=== PATIENT | male | born 1960 | race Caucasian/White ===

== ENCOUNTER 2016-12-22 10:17 | Outpatient (CLI) | payer MEDICARE ==
[~2016-12-22] VITALS: Ht 177.8 cm; Wt 98.6 kg
--- NOTE | ~2016-12-22 | HEMODYNAMI ---
PATIENT:IKER LOWE MEDICAL RECORD: [id number] : 64 LOCATION:[facility] ADMISSION DATE: 12/22/16 Generatedon:12/22/201614:07 Patient name: IKER LOWE Patient #: [id number] SSN: [id number] B: 1960 Date of study: 12/22/2016 Page: Of Hemodynamic Procedure Report Patient Data Patient Demographics Procedure consent was obtained First Name: IKER Gender: Male Last Name: MYNOR : 1960 Middle Initial: VALERIA Age: 56 year(s) Patient #: [id number] Race: Unknown Additional ID: [id number] Contact details [address]: [address] [place] [address] State: [place] City: [place] Zip code: [address] Past Medical History Allergies Allergen Reaction Date Comments Reported Other allergy 12/22/2016 Iodine, Sulfa Admission Admission Data Admission Date: 12/22/2016 Admission Time: 10:17 Admit Source: Other Lab Results Lab Result Date: 12/22/2016 Lab Result Time: 10:40 Biochemistry Name Units Result Min Max BUN mg/dl 18 --(---*)-- 7 18 Creatinine mg/dl 1.1 --(--*-)-- 0.6 1.3 CBC Name Units Result Min Max Hematocrit % 45.2 --(-*--)-- 42 54 Hemoglobin g/dl 15.2 --(-*--)-- 13.5 17.5 Procedure Procedure Types Cath Procedure Diagnostic Procedure LHC LHC w/Coronaries w/Grafts PCI Procedure Coronary Stent Coronary Stent Initial Miscellaneous Procedures Moderate Sedation up to 30 minutes Procedure Description Procedure Date Procedure Date: 12/22/2016 Procedure Start Time: 13:28 Procedure End Time: 14:06 Procedure Staff Name Function Kristian Goodrich MD Performing Physician Felice Chavez RT Monitor Natividad Tobias RT Scrub Jaden Shelley RN Nurse Lidia Palomares RT Monitor Procedure Data Cath Procedure Fluoroscopy Diagnostic fluoroscopy Total fluoroscopy Time: 7.3 time: 7.3 min min Diagnostic fluoroscopy Total fluoroscopy dose: dose: 1321 mGy 1321 mGy Contrast Material Contrast Material Type Amount (ml) Isovue 300 161 Entry Location Entry Primary Successful Side Size Upsize Upsize Entry Closure Succes sful Closure Location (Fr) 1 (Fr) 2 (Fr) Remarks Device Remarks Femoral Right 5 Fr 6 Fr Exoseal artery Short Estimated blood loss: 10 ml Diagnostic catheters Device Type Used For End Catheter Placement Cordis 5Fr JL 4.0 Procedure Catheter (MP) Diagnostic Infinity 5Fr Procedure AR MOD Catheter Diagnostic Infinity 5Fr Procedure IM catheter Cordis 5Fr Pigtail Procedure Catheter (MP) Procedure Complications No complications Procedure Medications Medication Administration Route Dosage Oxygen NC 2 l/min Heparin Flush Bag added to field 2 bags (1000units/500ml NS) 0.9% NaCl I.V. 100 ml/hr Fentanyl I.V. 50 mcg Versed I.V. 1 mg Fentanyl I.V. 50 mcg Versed I.V. 1 mg Heparin Bolus I.V. 05326 units Fentanyl I.V. 50 mcg Fentanyl I.V. 50 mcg Plavix P.O. 600 mg Hemodynamics Rest HGB: 15.2 (g/dl) Heart Rate: 74 (bpm) Pressure Samples Time Site Value (mmHg) Purpose Heart Use Rate(bpm) 13:38 LV 143/1,20 Snapshot 84 13:38 AO 134/86(109) Pullback 83 13:38 LV 153/4,20 Pullback 83 Gradients Valve Time Site 1 Site 2 Mean SEP/DFP Peak To Heart Use (mmHg) (sec/min) Peak Rate (mmHg) (bpm) Aortic 13:38 LV AO 14 22 19 83 153/4,20 134/86(109) Calculations Valve P-P Mean Valve Index Valve Source Name Gradient Area Flow (cm2) Aortic 19 14 19 14 Snapshots Pre Cath Intra NCS Post Cath Vital Signs Time Heart Resp SPO2 etCO2 NIBP (mmHg) Rhythm Pain Sedation Rate (ipm) (%) (mmHg) Status Level (bpm) 13:12:51 73 16 97 37.5 149/100(123) NSR 0 (11) 10(A) , No pain 13:17:29 73 18 97 36.9 143/97(119) NSR 0 (11) 10(A) , No pain 13:22:09 76 18 98 9.7 145/88(121) NSR 0 (11) 10(A) , No pain 13:26:46 78 17 97 38.4 138/96(113) NSR 0 (11) 10(A) , No pain 13:31:24 79 17 96 33.9 145/97(112) NSR 0 (11) 10(A) , No pain 13:36:01 85 17 97 38.4 144/98(116) NSR 0 (11) 9(A) , No pain 13:40:41 83 18 97 39.9 141/95(117) NSR 0 (11) 9(A) , No pain 13:45:20 80 18 98 39.1 143/96(118) NSR 0 (11) 9(A) , No pain 13:50:00 84 17 98 36.1 149/96(117) NSR 0 (11) 9(A) , No pain 13:54:41 81 17 98 42.9 144/97(117) NSR 0 (11) 9(A) , No pain 13:59:20 80 18 97 39.1 149/102(124) NSR 0 (11) 9(A) , No pain 14:03:56 81 17 97 44.4 136/98(113) NSR 0 (11) 10(A) , No pain Medications Time Medication Route Dose Verified Delivered Reason Notes Effectiveness by by 13:14:05 Oxygen NC 2 Kristian Jaden Per physician l/min Kp Shelley RN 13:14:14 Heparin Flush added 2 Kristian Jaden used for Bag to bags Kp Shelley o and m supervisor (1000units/500ml field NS) 13:14:23 0.9% NaCl I.V. 100 Kristian Jaden Per physician ml/hr Kp Shelley RN 13:27:41 Fentanyl I.V. 50 Kristian Jaden for sedation mcg Kp Shelley RN 13:27:48 Versed I.V. 1 mg Kristian Jaden for sedation Kp Shelley RN 13:32:57 Fentanyl I.V. 50 Kristian Jaden for sedation mcg Kp Shelley RN 13:33:02 Versed I.V. 1 mg Kristian Jaden for sedation Kp Shelley RN 13:43:49 Heparin [place].V. 62723 Kristian Jaden for units Kp Shelley RN anticoagulation 13:51:25 Fentanyl I.V. 50 Kristian Stanley for sedation mcg Kp Shelley RN 13:54:52 Fentanyl I.V. 50 Kristian Stanley for sedation mcg Kp Shelley RN 14:06:25 Plavix P.O. 600 Kristian Stanley for mg Kp Shelley RN antiplatelet therapy Procedure Log Time Note 12:55:02 Admit Source: Other 12:55:29 Felice Chavez RT(R) sent for patient. Start room use. 12:55:31 Diagnostic Cath status Elective 12:55:49 Time tracking: Regular hours 12:55:53 Plan of Care:Hemodynamics will remain stable., Cardiac rhythm will remain stable., Comfort level will be maintained., Respiratory function will remain adequate., Patient/ family verbilizes understanding of procedure., Procedure tolerated without complication., Recovers from procedure without complications.. 12:56:07 H&P Date Dictated: 12/18/2016 Within 30 days and on chart., H&P Addendum completed by physician on day of procedure. (MUST COMPLETE FOR ALL OUTPATIENTS). 13:07:43 Patient received from Pre/Post Procedure Room to CCL 1 Alert and oriented. Tansferred to table in Supine position. 13:07:45 Warm blankets applied, and analy hugger turned on for patient comfort. 13:07:45 Correct patient and procedure confirmed by team. 13:07:47 Signed procedure consent form obtained from patient. 13:07:48 ECG and BP/O2 sat monitors applied to patient. 13:07:49 Full Disclosure recording started 13:12:01 Vital chart was started 13:14:05 Oxygen 2 l/min NC was administered by Jaden Shelley RN; Per physician; 13:14:14 Heparin Flush Bag (1000units/500ml NS) 2 bags added to field was administered by Jaden Shelley RN; used for procedure; 13:14:23 0.9% NaCl 100 ml/hr I.V. was administered by Jaden Shelley RN; Per physician; 13:19:07 Baseline sample Acquired. 13:19:12 Rhythm: sinus rhythm 13:19:14 Pre-procedure instructions explained to patient. 13:19:14 Pre-op teaching completed and patient verbalized understanding. 13:19:16 Family in waiting room. 13:19:17 Patient NPO since Midnight. 13:19:31 Patient allergic to Other allergyIodine, Sulfa 13:19:33 Is the patient allergic to Iodine/contrast media? Yes. 13:19:34 Was the patient premedicated? Yes 13:19:36 Is patient on blood thinner?Yes 13:19:44 ACC The patient was administered the following blood thiners within the last 24 hours: Coumadin 13:19:47 Patient diabetic? No. 13:19:49 Previous problem with sedation/anesthesia? No ? 13:19:51 Snore? Yes 13:19:52 Sleep apnea? Yes 13:19:55 Deviated septum? No 13:20:08 Opens mouth fully? Yes 13:20:10 Sticks out tongue? Yes 13:20:22 Airway obstruction? Yes COPD 13:20:29 Dentures? No ? 13:20:43 Pre procedure: right dorsailis pedis pulse 2+ Normal; easily identifiable; not easily obliterated 13:20:51 Patient pain scale 0/10 ?. 13:20:57 IV patent on arrival in left hand with 0.9% NaCl at [facility]. 13:23:02 Lab Result : Creatinine 1.1 mg/dl 13:23:02 Lab Result : BUN 18 mg/dl 13:23:02 Lab Result : Hemoglobin 15.2 g/dl 13:23:02 Lab Result : Hematocrit 45.2 % 13:23:29 Lab results completed and on chart. 13:23:37 Right groin area was prepped with chlora-prep and draped in sterile fashion 13:23:38 Alarms reviewed by R. N. 13:23:39 Sharps counted by scrub and verified by R.N. 13:23:54 Use device set Femoral Dx 13:23:55 Tegaderm 4 x 4 opened to sterile field. 13:23:56 Acist Manifold opened to sterile field. 13:23:57 Acist Hand Control opened to sterile field. 13:23:58 Acist Syringe opened to sterile field. 13:23:59 Bag Decanter opened to sterile field. 13:23:59 Medline Cath Pack opened to sterile field. 13:24:00 Terumo 5Fr [place] Sheath opened to sterile field. 13:24:01 Diagnostic Infinity 5Fr Multipack catheter opened to sterile field. 13:24:02 St Catracho 260cm J .035 wire opened to sterile field. 13:24:11 Physician arrived 13:: --------ALL STOP TIME OUT------ 13:24:14 Final Timeout: patient, procedure, and site verified with staff and physician. All members of the team are in agreement. 13:24:15 Right groin site verified by team. 13:24:19 Physical assessment completed. ASA score P 2 - A patient with mild systemic disease as per Kristian Goodrich MD. 13::27 Sedation plan: IV Moderate Sedation Medication:Versed, Fentanyl 13:25:36 Zero performed for pressure channel P1 13::41 Fentanyl 50 mcg I.V. was administered by Jaden Shelley RN; for sedation; 13:27:48 Versed 1 mg I.V. was administered by Jaden Shelley RN; for sedation; 13:28:05 Procedure started. 13:28:07 Local anesthetic to right femoral artery with Lidocaine 2% by Kristian Goodrich MD.INITIAL ACCESS ONLY 13:29:18 A 5 Fr sheath was inserted into the Right Femoral artery 13:29:28 A Cordis 5Fr JL 4.0 Catheter (MP) was advanced over the wire and used for Procedure. 13:30:31 LCA angiography performed. 13:31:53 Catheter exchanged over wire. 13:32:12 A Diagnostic Infinity 5Fr AR MOD Catheter was advanced over the wire and used for Procedure. 13:32:57 Fentanyl 50 mcg I.V. was administered by Jaden Shelley RN; for sedation; 13:33:02 Versed 1 mg I.V. was administered by Jaden Shelley RN; for sedation; 13:33:43 RCA angiography performed. 13:34:22 SVG to Diag angiography performed. 13:35:03 A Diagnostic Infinity 5Fr IM catheter was advanced over the wire and used for Procedure. 13:36:44 Catheter removed. 13:37:08 A Cordis 5Fr Pigtail Catheter (MP) was advanced over the wire and used for Procedure. 13:38:20 LV hemodynamics recorded. 13:38:23 Injector settings: Ml/sec: 10, Volume: 20, 13:38:25 LV gram done using HENDERSON 13:38:59 EF : 55 % 13:39:06 Catheter removed. 13:39:18 Terumo 6Fr [place] Sheath opened to sterile field. 13:39:24 SolvAxis BasixCompak Inflation Kit opened to sterile field. 13:39:45 Jack BMW [place] 2 J-tip 300cm 0.014 guide wir opened to sterile field. 13:40:10 Cordis 6FR XBLAD 3.5 guide catheter opened to sterile field. 13:40:27 Sheath upsized to a 6 Fr Short. 13:41:09 High Pressure Extension Tubing (Goodrich) opened to sterile field. 13:41:14 Cook 18G 7cm Percutaneous Entry needle opened to sterile field. 13:41:33 BMW wire advanced. 13:43:49 Heparin Bolus 14631 units I.V. was administered by Jaden Shelley RN; for anticoagulation; 13:45:02 Wire advanced across lesion. 13:47:04 Inflation number: 1 A Euphora 2.5 x 20 Balloon was prepped and advanced across the Mid LAD, then inflated to 12 WILLIAMS for 0:10 (min:sec). 13:47:39 Inflation number: 2 The Euphora 2.5 x 20 Balloon was reinflated across the Mid LAD, to 14 WILLIAMS for 0:10 (min:sec). 13:47:56 Inflation number: 3 The Euphora 2.5 x 20 Balloon was reinflated across the Mid LAD, to 14 WILLIAMS for 0:10 (min:sec). 13:50:05 Balloon removed over the wire. 13:51:25 Fentanyl 50 mcg I.V. was administered by Jaden Shelley RN; for sedation; 13:53:18 Inflation Number: 4 A Medtronic Integrity 2.75 X 18 stent was prepped and advanced across the Mid LAD. The stent was deployed at 16 WILLIAMS for 0:10 (min:sec). 13:54:29 Stent catheter was removed intact over wire. 13:54:52 Fentanyl 50 mcg I.V. was administered by Jdaen Shelley RN; for sedation; 13:56:43 Inflation Number: 1 A Medtronic Integrity 3.0 X 26 stent was prepped and advanced across the Prox LAD. The stent was deployed at 16 WILLIAMS for 0:10 (min:sec). 13:57:39 Stent catheter was removed intact over wire. 13:57:45 Wire removed. 13:57:52 Guide catheter removed. 13:58:27 Cordis 6Fr Exoseal opened to sterile field. 13:58:45 Sheath removed intact; hemostasis achieved with Exoseal to the Right Femoral artery. 13:58:48 Procedure ended.(Physican Out) 13:59:55 Fluoroscopy time 07.30 minutes. 13:59:59 Fluoroscopy dose: 1321 mGy 13:59:59 Flurop Dose total: 1321 14:00:03 Contrast amount:Isovue 300 161ml. 14:00:05 Sharps counted by scrub and verified by R.N. 14:00:05 Insertion/operative site no bleeding no hematoma. 14:00:08 Post-op/insertion site Right Femoral artery dressed using a 4 x 4 and Tegaderm. 14:00:13 Post right femoral artery:stable, soft, clean and dry 14:00:15 Post Procedure Pulses reassessed and unchanged 14:00:20 Post procedure: right dorsailis pedis pulse 2+ Normal; easily identifiable; not easily obliterated. 14:00:24 Post-procedure physical assessment completed. ASA score P 2 - A patient with mild systemic disease as per Kristian Goodrich MD. 14:00:28 Post procedure rhythm: unchanged. 14:00:31 Estimated blood loss: 10 ml 14:00:32 Post procedure instruction explained to patient.Patient verbalizes understanding. 14:00:33 Patient needs reinforcement of post procedure teaching. 14:01:16 Procedure type changed to Cath procedure, Diagnostic procedure, LHC, LHC w/Coronaries w/Grafts, PCI procedure, Coronary Stent, Coronary Stent Initial, Miscellaneous Procedures, Moderate Sedation up to 30 minutes 14:02:26 Procedure and supply charges have been captured, reviewed, submitted and are correct. 14:02:29 Procedure Complication : No complications 14:06:25 Plavix 600 mg P.O. was administered by Jaden Shelley RN; for antiplatelet therapy; 14:06:33 Vital chart was stopped 14:06:34 See physician's report for complete and final results. 14:06:38 Report given to Pre/Post Procedure Room. 14:06:42 Patient transfered to Pre/Post Procedure Room with Bed. 14:06:44 Procedure ended. 14:06:44 Full Disclosure recording stopped 14:06:47 End room use (Document Last) Intervention Summary Intervention Notes Time ActionType Lesion and Equipment Action# Pressure Duration Attributes Used 13:47:04 Inflate Mid LAD Euphora 1 12 00:10 balloon 2.5 x 20 Balloon 13:47:39 Reinflate Mid LAD Euphora 2 14 00:10 balloon 2.5 x 20 Balloon 13:47:56 Reinflate Mid LAD Euphora 3 14 00:10 balloon 2.5 x 20 Balloon 13:53:18 Place stent Mid LAD Medtronic 4 16 00:10 Integrity 2.75 X 18 stent 13:56:43 Place stent Prox LAD Medtronic 1 16 00:10 Integrity 3.0 X 26 stent Device Usage Item Name Manufacture Quantity Catalog Hospital Part Current Minimal Lot# / Number Charge Number Stock Stock Serial# Code Tegaderm 4 x 3M 1 [id number] 613184 441359 5 4 Acist Acist 1 35149 372671 477078 752764 5 [employer] Ourcast Acist Hand Acist 1 97228 570809 347824 397742 5 [employer] Ourcast Acist Acist 1 25988 449794 108402 206397 20 [employer] Medical Systems Ourcast Bag Decanter Microtek 1 2002S 485436 88991 776025 5 Medical Inc. Medline Cath Cardinal 1 [id number] 659858 52347 658427 5 Pack Health Terumo 5Fr Terumo 1 [id number] 324945 269922 054900 40 [place] Sheath Diagnostic Cardinal 1 [id number] 699404 56935 794594 30 Infinity 5Fr Health Multipack catheter St Catracho St Catracho 1 323597 327366 758521 901784 30 260cm J .035 wire Cordis 5Fr Cardinal 1 [id number] 5 JL 4.0 Health Catheter (MP) Diagnostic Cardinal 1 [id number] 324132 886818 674347 15 Infinity 5Fr Health AR MOD Catheter Diagnostic Cardinal 1 [id number] 451652 375136 533435 5 Infinity 5Fr Health IM catheter Cordis 5Fr Cardinal 1 950170 5 Pigtail Health Catheter (MP) Terumo 6Fr Terumo 1 [id number] 894520 860783 918536 40 [place] Sheath Merit Merit 1 [id number] 352979 827620 760830 15 BasTribunat Medical Inflation Kit Jack BMW Jack 1 [id number] 439124 151722 792512 5 [place] 2 Vascular J-tip 300cm 0.014 guide wir Cordis 6FR Cardinal 1 [id number] 154833 447599 807299 10 XBLAD 3.5 Health guide catheter High Merit 1 [id number] 983409 02549 243093 10 Pressure Medical Extension Tubing (Goodrich) Cook 18G 7cm Cook Medical 1 [id number] 956079 90833 807843 5 Percutaneous Entry needle Euphora 2.5 Medtronic 1 [id number] 093748 803504 725656 5 [id number] x 20 Balloon Medtronic Medtronic 1 [id number] 843266 839041 9 [id number] Integrity 2.75 X 18 stent Medtronic Medtronic 1 [id number] 431145 519070 9 [id number] Integrity 3.0 X 26 stent Cordis 6Fr Cardinal 1 [id number] 514155 567104 218220 10 [email or web address] Signature Audit [place] Stage Time Signature Unsigned Intra-Procedure 12/22/2016 Lidia Palomares 2:07:05 PM RT(R) Signatures Monitor : Felice Chavez RT Signature : Date : Time : Monitor : Lidia Palomares Signature : RT Date : Time : [place] [address] [facility] [address]
[2016-12-22] MEDS ORDERED: COUMADIN5 MG PO (10:34)
[2016-12-22] MEDS ORDERED: TENORMIN50 MG PO (10:35)
[2016-12-22] MEDS ORDERED: NEURONTIN800 MG PO (10:35)
[2016-12-22] MEDS ORDERED: HYDROCODONE-APA1 TAB PO (10:35)
[2016-12-22] MEDS ORDERED: CYMBALTA60 MG PO (10:36)
[2016-12-22] MEDS ORDERED: XANAX0.5 MG PO (10:36)
[2016-12-22] MEDS ORDERED: PREDNISONE10 MG PO (10:37)
[2016-12-22] MEDS ORDERED: PROAIR HFA8.5 GM INH (10:38)
[2016-12-22] MEDS ORDERED: ALBUTEROL2.5 MG/3 M INH (10:38)
[2016-12-22 10:41] VITALS: BP 161/92; Ht 177.8 cm; Wt 98.6 kg
[2016-12-22 10:51] LABS: BASOPHILS 0.5 % (0-2); EOSINOPHILS 2.7 % (0-7); HEMATOCRIT 45.2 % (42.0-54.0); HEMOGLOBIN 15.2 g/dL (13.5-17.5); IMMATURE GRANULOCYTES 0.3 % (0-5); LYMPHOCYTES 15.3 % (15-50); MCHC 33.6 g/dL (31.0-37.0); MCV 89.3 fL (80.0-100.0); MEAN PLATELET VOLUME 9.6 fL (7.4-10.4); MONOCYTES 4.1 % (2-11); NEUTROPHILS 77.1 % (40-80); PLATELET COUNT 205 10x3/uL (130-400); RBC 5.06 10x6/uL (4.20-6.10); RDW 13.6 % (11.5-14.5); WBC 6.4 10x3/uL (4.8-10.8)
[2016-12-22 11:04] LABS: ANION GAP 11.4 mmol/L (8-16); CALCIUM 8.8 mg/dL (8.5-10.1); CARBON DIOXIDE 28.4 mmol/L (21.0-32.0); CREATININE - SERUM 1.1 mg/dL (0.6-1.3); POTASSIUM - SERUM 4.8 mmol/L (3.5-5.1)
[2016-12-22 11:09] LABS: INR 0.97 (0.85-1.17); PROTIME 12.7 SECONDS (11.6-15.0)
--- NOTE | 2016-12-22 14:30 | NUR ---
2L NC, NO RESP DISTRESS. RIGHT GROIN 6F EXOSEAL CDI, NO BLEEDING OR HEMATOMA NOTED. NO C/O PAIN OR NAUSEA. VSS. FRIEND AT BEDSIDE, CALL LIGHT WITHIN REACH.
--- NOTE | 2016-12-22 15:00 | NUR ---
RIGHT GROIN 6F EXOSEAL CDI, NO BLEEDING OR HEMATOMA NOTED. 2L NC, NO RESP DISTRESS. NO C/O PAIN OR NAUSEA. VSS. WILL CONTINUE TO MONITOR CLOSELY.
[2016-12-22] MEDS ORDERED: PLAVIX75 MG PO (15:09)
--- NOTE | 2016-12-22 15:15 | NUR ---
SANDWICH TRAY AND DRINK GIVEN. NO C/O NAUSEA OR PAIN. RIGHT GROIN 6F EXOSEAL CDI, NO BLEEDING OR HEMATOMA NOTED. 2L NC, NO RESP DISTRESS. VSS. CALL LIGHT WITHIN REACH.
--- NOTE | 2016-12-22 16:15 | NUR ---
RESTING QUEITLY WITH EYES CLOSED. RIGHT GROIN 6F EXOSEAL CDI, NO BLEEDING OR HEMATOMA NOTED. NO C/O AT THIS TIME. VSS. WILL CONTINUE TO MONITOR.
--- NOTE | 2016-12-22 17:27 | NUR ---
HOB ELEVATED 30 DEGREES. RIGHT GROIN 6F EXOSEAL CDI, NO BLEEDING OR HEMATOMA NOTED.
--- NOTE | 2016-12-22 17:35 | NUR ---
DISCHARGE INSTRUCTIONS GIVEN, VERBALIZED UNDERSTANDING.
--- NOTE | 2016-12-22 17:48 | NUR ---
LEFT WRIST PIV D/C'D WITH CATHETER INTACT, BAND AID TO SITE. UP TO BEDSIDE TO GET DRESSED.
--- NOTE | 2016-12-22 18:00 | NUR ---
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 LEFT FACILITY WITH FRIEND AND ALL PERSONAL BELONGINGS.
== END 2016-12-22 18:00 | disposition home or self-care (01) ==
LOC: D.CATH 10:17
PROVIDERS: Internal Medicine Cardiovascular Disease
DX: I25.119 Atherosclerotic heart disease of native coronary artery with unspecified angina pectoris (principal); E78.5 Hyperlipidemia, unspecified; I10 Essential (primary) hypertension; Z95.2 Presence of prosthetic heart valve; R55 Syncope and collapse; Z01.812 Encounter for preprocedural laboratory examination

== ENCOUNTER 2017-12-07 10:47 | Outpatient (CLI) | payer MEDICARE ==
[~2017-12-07] VITALS: Ht 177.8 cm; Wt 100.0 kg
--- NOTE | ~2017-12-07 | HEMODYNAMI ---
PATIENT:IKER LOWE MEDICAL RECORD: [id number] : 64 LOCATION:[facility] ADMISSION DATE: 12/07/17 Generatedon:12/07/201713:50 Patient name: IKER LOWE Patient #: [id number] SSN: DO B: 1960 Date of study: 12/07/2017 Page: Of Hemodynamic Procedure Report Patient Data Patient Demographics Procedure consent was obtained First Name: IKER Gender: Male Last Name: MYNOR : 1960 Middle Initial: VALERIA Age: 57 year(s) Patient #: [id number] Race: Unknown Additional ID: [id number] Contact details [address]: [address] [place] [id number] State: [place] City: [place] Zip code: [address] Past Medical History Allergies Allergen Reaction Date Comments Reported Other allergy 12/22/2016 Iodine, Sulfa Admission Admission Data Admission Date: 12/07/2017 Admission Time: 10:47 Lab Results Lab Result Date: 12/07/2017 Lab Result Time: 0:00 Biochemistry Name Units Result Min Max BUN mg/dl 17 --(---*)-- 7 18 Creatinine mg/dl 1.1 --(--*-)-- 0.6 1.3 CBC Name Units Result Min Max Hemoglobin g/dl 15.1 --(-*--)-- 13.5 17.5 Procedure Procedure Types Cath Procedure Diagnostic Procedure C [facility] w/Coronaries w/Grafts Sedation Charges Moderate Sedation up to 15 minutes PCI Procedure Coronary Stent Coronary Stent Initial Procedure Description Procedure Date Procedure Date: 12/07/2017 Procedure Start Time: 13:10 Procedure End Time: 13:44 Procedure Staff Name Function Kristian Goodrich MD Performing Physician Melida Eubanks RT Monitor Grace Nolasco RT Scrub Long Del Rio RN Nurse Procedure Data Cath Procedure Fluoroscopy Diagnostic fluoroscopy Total fluoroscopy Time: 9 time: 9 min min Diagnostic fluoroscopy Total fluoroscopy dose: dose: 1323 mGy 1323 mGy Contrast Material Contrast Material Type Amount (ml) Isovue 300 102 Entry Location Entry Primary Successful Side Size Upsize Upsize Entry Closure Succes sful Closure Location (Fr) 1 (Fr) 2 (Fr) Remarks Device Remarks Femoral Right 5 Fr 6 Fr Exoseal artery Short Estimated blood loss: 5 ml Diagnostic catheters Device Type Used For End Catheter Placement MULTIPACK JL 4.0 5Fr Left Coronary catheter Angiography MULTIPACK 3DRC 5Fr Right Coronary catheter Angiography DIAGNOSTIC AR MOD 5Fr SVG Angiography Catheter ([id number]) Procedure Complications No complications Procedure Medications Medication Administration Route Dosage 0.9% NaCl I.V. 100 ml/hr Oxygen etCO2 Nasal cannula 2 l/min Heparin Flush Bag added to field 2 bags (1000units/500ml NS) Lidocaine 2% added to field 20 Versed I.V. 2 mg Fentanyl I.V. 100 mcg Heparin Bolus I.V. 17738 units Plavix P.O. 600 mg Hemodynamics Rest HGB: 15.1 (g/dl) Heart Rate: 61 (bpm) Snapshots Pre Cath Intra NCS Post Cath Vital Signs Time Heart Resp SPO2 etCO2 NIBP (mmHg) Rhythm Pain Sedation Rate (ipm) (%) (mmHg) Status Level (bpm) 12:55:09 67 13 99 38.9 146/96(110) NSR 0 (11) 10(A) , No pain 12:59:19 65 15 98 40.4 147/93(116) NSR 0 (11) 10(A) , No pain 13:03:33 65 13 98 43.4 135/85(108) NSR 0 (11) 10(A) , No pain 13:07:43 65 14 98 41.2 153/87(111) NSR 0 (11) 10(A) , No pain 13:12:01 69 14 98 41.9 137/82(105) NSR 0 (11) 10(A) , No pain 13:16:08 69 13 98 41.9 146/92(118) NSR 0 (11) 10(A) , No pain 13:20:18 69 13 98 44.1 142/97(112) NSR 0 (11) 10(A) , No pain 13:24:28 68 13 98 43.4 145/92(124) NSR 0 (11) 10(A) , No pain 13:28:38 68 15 98 42.6 143/99(123) NSR 0 (11) 10(A) , No pain 13:32:52 67 14 98 41.9 137/93(114) NSR 0 (11) 9(A) , No pain 13:37:02 67 15 98 41.9 143/90(114) NSR 0 (11) 9(A) , No pain 13:41:12 69 14 98 42.6 137/98(113) NSR 0 (11) 10(A) , No pain Medications Time Medication Route Dose Verified Delivered Reason Note s Effectiveness by by 13:01:13 0.9% NaCl I.V. 100 Long Long Per physician ml/hr Eliane Del Rio RN RN 13:01:22 Oxygen etCO2 2 Long Long Per physician Nasal l/min Eliane Del Rio cannula RN RN 13:01:33 Heparin Flush added 2 bags Long Long used for Bag to Eliane Del Rio procedure (1000units/500ml RN RN NS) 13:01:44 Lidocaine 2% added 20ml Long Long for local to vial Eliane Del Rio anesthetic field RN RN 13:09:42 Versed I.V. 2 mg Long Long for sedation Eliane Del Rio RN RN 13:09:51 Fentanyl I.V. 100 Long Long for sedation mcg Eliane Del Rio RN RN 13:22:48 Heparin Bolus I.V. 10,000 Long Long for units Eliane Del Rio anticoagulation RN RN 13:41:26 Plavix P.O. 600 mg Long Long for Eliane Del Rio antiplatelet RN RN therapy Procedure Log Time Note 12:39:06 Diagnostic Cath Status : Elective 12:39:29 Melida Eubanks RT(R) sent for patient. Start room use. 12:39:57 Time tracking: Regular hours (M-F 7:00 - 5:00) 12:40:02 Plan of Care:Hemodynamics will remain stable., Cardiac rhythm will remain stable., Comfort level will be maintained., Respiratory function will remain adequate., Patient/ family verbilizes understanding of procedure., Procedure tolerated without complication., Recovers from procedure without complications.. 12:46:25 Patient received from Pre/Post Procedure Room to [facility] 2 Alert and oriented. Tansferred to table in Supine position. 12:46:27 Warm blankets applied, and analy hugger turned on for patient comfort. 12:46:27 Correct patient and procedure confirmed by team. 12:46:29 Signed procedure consent form obtained from patient. 12:46:30 ECG and BP/O2 sat monitors applied to patient. 12:54:07 Vital chart was started 12:54:10 Baseline sample Acquired. 12:54:14 Rhythm: sinus rhythm 12:56:15 Full Disclosure recording started 12:56:31 H&P Date Dictated: 12/07/2017 Within 30 days and on chart., H&P Addendum completed by physician on day of procedure. (MUST COMPLETE FOR ALL OUTPATIENTS). 12:57:34 Pre-procedure instructions explained to patient. 12:57:35 Pre-op teaching completed and patient verbalized understanding. 12:57:36 Family in waiting room. 12:57:38 Patient NPO since Midnight. 12:57:42 Is the patient allergic to Iodine/contrast media? Yes. 12:57:43 Was the patient premedicated? Yes 12:57:44 Is patient on blood thinner?Yes 12:57:48 ACC The patient was administered the following blood thiners within the last 24 hours: ACCLovenox 12:57:50 Patient diabetic? No. 12:57:52 Previous problem with sedation/anesthesia? No ? 12:57:53 Snore? Yes 12:57:54 Sleep apnea? Yes 12:57:55 Deviated septum? No 12:57:56 Opens mouth fully? Yes 12:57:57 Sticks out tongue? Yes 12:58:13 Airway obstruction? Yes copd emphysema pulmonary hypertension 12:58:19 Dentures? No ? 12:58:22 Pre procedure: right dorsailis pedis pulse 1+ Palpable, but thready & weak; easily obliterated 12:58:25 Pre procedure: left dorsailis pedis pulse 1+ Palpable, but thready & weak; easily obliterated 12:58:28 Patient pain scale 0/10 ?. 12:58:33 IV patent on arrival in left forearm with 0.9% NaCl at KVO. 12:58:36 Lab results completed and on chart. 12:58:40 Right groin area was prepped with chlora-prep and draped in sterile fashion 12:58:56 Alarms reviewed by RAbhay N. 12:58:56 Sharps counted by scrub and verified by R.NAbhay 12:59:04 Physician arrived 12:59:04 --------ALL STOP TIME OUT------ 12:59:04 Final Timeout: patient, procedure, and site verified with staff and physician. All members of the team are in agreement. 12:59:07 Right groin site verified by team. 12:59:10 Physical assessment completed. ASA score P 2 - A patient with mild systemic disease as per Kristian Goodrich MD. 12:59:13 Sedation plan: IV Moderate Sedation Medication:Versed, Fentanyl 12:59:24 Use device set Femoral Dx 12:59:25 ACIST Syringe (68266) opened to sterile field. 12:59:26 Bag Decanter (2002S) opened to sterile field. 12:59:26 Medline Cath Pack ([id number]) opened to sterile field. 12:59:27 DIAGNOSTIC WIRE .035 260cm J wire (256439) opened to sterile field. 12:59:28 ACIST Hand Control (43002) opened to sterile field. 12:59:28 ACIST Manifold (26138) opened to sterile field. 12:59:29 DIAGNOSTIC Multipack 5Fr catheter set (XZ3618) opened to sterile field. 12:59:29 Tegaderm 4 x 4 (1626W) opened to sterile field. 12:59:30 SHEATH Prelude 5Fr 0.035 (HAW-6C-95-035) opened to sterile field. 13:01:13 0.9% NaCl 100 ml/hr I.V. was administered by Long Del Rio RN; Per physician; 13:01:22 Oxygen 2 l/min etCO2 Nasal cannula was administered by Long Del Rio RN; Per physician; 13:01:33 Heparin Flush Bag (1000units/500ml NS) 2 bags added to field was administered by Long Del Rio RN; used for procedure; 13:01:44 Lidocaine 2% 20ml vial added to field was administered by Long Del Rio RN; for local anesthetic; 13:09:42 Versed 2 mg I.V. was administered by Long Del Rio RN; for sedation; 13:09:51 Fentanyl 100 mcg I.V. was administered by Long Del Rio RN; for sedation; 13:10:10 Procedure started. 13:10:39 Local anesthetic to right femoral artery with Lidocaine 2% by Kristian Goodrich MD.INITIAL ACCESS ONLY 13:10:48 A 5 Fr sheath was inserted into the Right Femoral artery 13:11:15 Lab Result : BUN 17 mg/dl 13:11:15 Lab Result : Creatinine 1.1 mg/dl 13:11:15 Lab Result : Hemoglobin 15.1 g/dl 13:11:33 A MULTIPACK JL 4.0 5Fr catheter was advanced over the wire and used for Left Coronary Angiography. 13:12:25 LCA angiography performed. 13:12:27 Injector settings: Ml/sec: 3, Volume: 6, 13:13:27 Catheter removed. 13:13:32 A MULTIPACK 3DRC 5Fr catheter was advanced over the wire and used for Right Coronary Angiography. 13:14:35 RCA angiography performed. 13:14:38 Injector settings: Ml/sec: 3, Volume: 6, 13:15:24 Catheter removed. 13:15:48 A DIAGNOSTIC AR MOD 5Fr Catheter ([id number]) was advanced over the wire and used for SVG Angiography. 13:17:12 SVG to Diag angiography performed. 13:17:31 Catheter removed. 13:19:41 Proceeding to intervention. 13:20:04 GUIDE 6FR XBLAD 3.5 catheter ([id number]) opened to sterile field. 13:20:04 TUBING High Pressure Extension Tubing (Kp) (IQ6877C) opened to sterile field. 13:20:05 BMW 300cm Jackson 2 J wire ([id number]) opened to sterile field. 13:20:05 INFLATOR Merit BasixCompak (DW8102) opened to sterile field. 13:20:06 SHEATH 6FR Bogart (BDR552) opened to sterile field. 13:20:34 Sheath upsized to a 6 Fr Short. 13:20:40 6 Fr xblad 3.5 guide catheter was inserted over the wire 13:20:46 bmw wire advanced. 13:22:48 Heparin Bolus 10,000 units I.V. was administered by Long Del Rio RN; for anticoagulation; 13:27:37 Inflate balloon Inflation number: 1 A EUPHORA 2.5 x 20 Balloon ([id number]) was prepped and advanced across the Mid LAD, then inflated to 18 [place] for 0:10 (min:sec). 13:28:22 Inflation number: 2 The EUPHORA 2.5 x 20 Balloon ([id number]) was reinflated across the Mid LAD, to 14 [place] for 0:30 (min:sec). 13:29:43 Inflation number: 3 The EUPHORA 2.5 x 20 Balloon ([id number]) was reinflated across the Mid LAD, to 16 [place] for 0:10 (min:sec). 13:32:16 Balloon removed over the wire. 13:34:46 Place stent Inflation Number: 4 A OLGA OTW 2.75 x 22 stent ([id number]) was prepped and advanced across the Mid LAD. The stent was deployed at 15 [place] for 0:10 (min:sec). 13:35:19 Inflation number: 5 The stent balloon was then re-inflated across the Mid LAD to 16 [place] for 0:10 (min:sec). 13:37:25 Stent catheter was removed intact over wire. 13:39:28 Place stent Inflation Number: 6 A OLGA RX 3.0 x 22 stent ([id number]) was prepped and advanced across the Mid LAD. The stent was deployed at 16 [place] for 0:10 (min:sec). 13:40:22 Inflation number: 7 The stent balloon was then re-inflated across the Mid LAD to 16 [place] for 0:10 (min:sec). 13:41:26 Plavix 600 mg P.O. was administered by Long Del Rio RN; for antiplatelet therapy; 13:41:44 Stent catheter was removed intact over wire. 13:41:44 Wire removed. 13:41:45 Guide catheter removed. 13:41:52 EXOSEAL 6Fr (EX600) opened to sterile field. 13:42:02 Sheath removed intact; hemostasis achieved with Exoseal to the Right Femoral artery. 13:42:04 Procedure ended.(Physican Out) 13:42:16 Fluoroscopy time 09.00 minutes. 13:42:20 Flurop Dose total: 1323 13:42:20 Fluoroscopy dose: 1323 mGy 13:42:24 Contrast amount:Isovue 300 102ml. 13:42:25 Sharps counted by scrub and verified by R.N. 13:42:26 Insertion/operative site no bleeding no hematoma. 13:42:29 Post-op/insertion site Right Femoral artery dressed using a 4 x 4 and Tegaderm. 13:42:43 Post right femoral artery:stable 13:42:45 Post Procedure Pulses reassessed and unchanged 13:42:47 Post procedure rhythm: unchanged. 13:42:50 Estimated blood loss: 5 ml 13:42:51 Post procedure instruction explained to patient.Patient verbalizes understanding. 13:42:52 Patient needs reinforcement of post procedure teaching. 13:43:16 Procedure type changed to Cath procedure, Diagnostic procedure, LHC, LHC w/Coronaries w/Grafts, Sedation Charges, Moderate Sedation up to 15 minutes, PCI procedure, Coronary Stent, Coronary Stent Initial 13:43:36 Procedure and supply charges have been captured, reviewed, submitted and are correct. 13:43:40 Procedure Complication : No complications 13:43:45 Vital chart was stopped 13:43:45 See physician's report for complete and final results. 13:44:05 Report given to Pre/Post Procedure Room. 13:44:08 Patient transfered to Pre/Post Procedure Room with Stretcher. 13:44:16 Procedure ended. 13:44:16 Full Disclosure recording stopped 13:44:25 ACC-PCI Only Patient was given prescriptions, or instructed by Kristian Goodrich MD to start/continue the following medications upon discharge: Plavix 13:44:26 End room use (Document Last) Intervention Summary Intervention Notes Time ActionType Lesion and Equipment Used Action# Pressure Duration Attributes 13:27:37 Inflate Mid LAD EUPHORA 2.5 x 1 18 00:10 balloon 20 Balloon ([id number]) 13:28:22 Reinflate Mid LAD EUPHORA 2.5 x 2 14 00:30 balloon 20 Balloon ([id number]) 13:29:43 Reinflate Mid LAD EUPHORA 2.5 x 3 16 00:10 balloon 20 Balloon ([id number]) 13:34:46 Place stent Mid LAD OLGA OTW 2.75 4 15 00:10 x 22 stent ([id number]) 13:35:19 Reinflate Mid LAD OLGA OTW 2.75 5 16 00:10 stent x 22 stent balloon ([id number]) 13:39:28 Place stent Mid LAD OLGA RX 3.0 x 6 16 00:10 22 stent ([id number]) 13:40:22 Reinflate Mid LAD OLGA RX 3.0 x 7 16 00:10 stent 22 stent balloon ([id number]) Device Usage Item Name Manufacture Quantity Catalog Number Hospital Part Current Minimal Lot# / Charge Number Stock Stock Serial# Code ACIST Syringe Acist 1 09715 234838 584720 860156 20 (97415) Medical Systems [place] Bag Decanter Microtek 1 2001S 590497 65015 703619 5 () Medical Inc. Medline Cath Medline 1 [id number] 194150 40224 106481 5 Pack ([id number]) DIAGNOSTIC WIRE St Catracho 1 986933 906647 813887 035410 30 .035 260cm J wire (596270) ACIST Hand Acist 1 92649 954245 690073 407422 5 Control (57423) Medical Systems Inc ACIST Manifold Acist 1 59796 928611 710489 666170 5 (33556) [employer] [place] DIAGNOSTIC Cardinal 1 LF1799 398755 87181 641500 30 Multipack 5Fr Health catheter set (NA8637) Tegaderm 4 x 4 3M 1 1626W 569309 315205 860244 5 (1626W) SHEATH Prelude Merit 1 THW-6Q-31-035 625836 103821 374005 5 5Fr 0.035 Medical (RUC-4P-55-035) MULTIPACK JL Cardinal 1 244637 5 4.0 5Fr Health catheter MULTIPACK 3DRC Cardinal 1 983981 5 5Fr catheter Health DIAGNOSTIC AR Cardinal 1 575855Y 132701 155359 817937 15 MOD 5Fr Health Catheter (264601K) GUIDE 6FR XBLAD Cardinal 1 [id number] 299506 329542 919890 10 3.5 catheter Health ([id number]) TUBING High Merit 1 [id number] 804708 75366 488611 10 Pressure Medical Extension Tubing (Goodrich) (UZ3866A) BMW 300cm Jack 1 [id number] 019579 478123 937266 5 Jackson 2 J Vascular wire (6300884G) INFLATOR Merit Merit 1 CA1395 883659 275679 559950 15 BasixFenix Biotech Medical (NR7016) SHEATH 6FR Terumo 1 NGM012 675173 286161 818068 40 Bogart (DST059) EUPHORA 2.5 x Medtronic 1 [id number] 973607 677321 930043 5 [id number] 20 Balloon ([id number]) OLGA OTW 2.75 x Medtronic 1 [id number] 646654 5015516 826246 5 [id number] 22 stent ([id number]) OLGA RX 3.0 x Medtronic 1 [id number] 814041 5536594 690761 5 [id number] 22 stent ([id number]) EXOSEAL 6Fr Cardinal 1 EX600 773663 745624 861774 10 (EX600) Health Signature Audit [place] Stage Time Signature Unsigned Intra-Procedure 12/07/2017 Melida Eubanks 1:50:29 PM RT(R) Signatures Monitor : Melida Eubanks RT Signature : Date : Time : [place] [id number] [place] [address]
[~2017-12-07 10:47] MED LIST: ALBUTEROL2.5 MG/3 M INH; COUMADIN5 MG PO; CYMBALTA60 MG PO; HYDROCODONE-APA1 TAB PO; NEURONTIN800 MG PO; PLAVIX75 MG PO; PREDNISONE10 MG PO; PROAIR HFA8.5 GM INH; TENORMIN50 MG PO; XANAX0.5 MG PO
[2017-12-07] MEDS ORDERED: SYMBICORT 16010.2 GM INH (11:08)
[2017-12-07 11:28] VITALS: BP 144/89; Ht 177.8 cm; Wt 100.0 kg
[2017-12-07 11:35] LABS: BASOPHILS 0.5 % (0-2); EOSINOPHILS 3.6 % (0-7); HEMATOCRIT 43.9 % (42.0-54.0); HEMOGLOBIN 15.1 g/dL (13.5-17.5); LYMPHOCYTES 17.1 % (15-50); MCH 30.5 pg (26.0-34.0); MCHC 34.4 g/dL (31.0-37.0); MCV 88.7 fL (80.0-100.0); MEAN PLATELET VOLUME 9.5 fL (7.4-10.4); MONOCYTES 5.5 % (2-11); NEUTROPHILS 73.3 % (40-80); PLATELET COUNT 199 10x3/uL (130-400); RBC 4.95 10x6/uL (4.20-6.10); RDW 13.6 % (11.5-14.5); WBC 5.9 10x3/uL (4.8-10.8)
[2017-12-07 11:43] LABS: ANION GAP 11.7 mmol/L (8-16); CALCIUM 8.9 mg/dL (8.5-10.1); CARBON DIOXIDE 28.2 mmol/L (21.0-32.0); CREATININE - SERUM 1.1 mg/dL (0.6-1.3); POTASSIUM - SERUM 4.9 mmol/L (3.5-5.1)
[2017-12-07] MEDS ORDERED: PLAVIX75 MG PO (14:13)
== END 2017-12-07 18:35 | disposition home or self-care (01) ==
LOC: D.CATH 10:47
PROVIDERS: Internal Medicine Cardiovascular Disease
DX: I25.110 Atherosclerotic heart disease of native coronary artery with unstable angina pectoris (principal); Z95.1 Presence of aortocoronary bypass graft; T82.855A Stenosis of coronary artery stent, initial encounter; Z01.812 Encounter for preprocedural laboratory examination
CPT/HCPCS: 93459; C9600

== ENCOUNTER 2018-06-29 11:02 | Inpatient (IN) | payer MEDICARE ==
[~2018-06-29] VITALS: Ht 177.8 cm; Wt 99.8 kg
--- NOTE | ~2018-06-29 | HEMODYNAMI ---
PATIENT:IKER LOWE MEDICAL RECORD: [id number] : 64 [facility] ADMISSION DATE: 06/29/18 Generatedon:06/30/201816:14 Patient name: IKER LOWE Patient #: [id number] SSN: DO B: 1960 Date of study: 06/30/2018 Page: Of Hemodynamic Procedure Report Patient Data Patient Demographics Procedure consent was obtained First Name: IKER Gender: Male Last Name: MYNOR : 1960 [facility] Initial: VALERIA Age: 58 year(s) Patient #: [id number] Race: Unknown Additional ID: [id number] Contact details [address]: [address] [place] [address] State: [place] City: [place] Zip code: [address] Past Medical History Allergies Allergen Reaction Date Comments Reported Other allergy 12/22/2016 Iodine, Sulfa Other allergy 06/30/2018 Sulfa, Idodinated Contrast Admission Admission Data Admission Date: 06/29/2018 Admission Time: 13:32 Admit Source: Emergency department Room #: D.2115 Lab Results Lab Result Date: 06/30/2018 Lab Result Time: 5:27 Biochemistry Name Units Result Min Max BUN mg/dl 16 --(---*)-- 7 18 Creatinine mg/dl 1 --(--*-)-- 0.6 1.3 CBC Name Units Result Min Max Hematocrit % 43.6 --(*---)-- 42 54 Hemoglobin g/dl 14.9 --(-*--)-- 13.5 17.5 Procedure Procedure Types Cath Procedure Diagnostic Procedure C [facility] w/Coronaries Sedation Charges Moderate Sedation up to 30 minutes PCI Procedure PTCA PTCA Initial Procedure Description Procedure Date Procedure Date: 06/30/2018 Procedure Start Time: 15:40 Procedure End Time: 16:09 Procedure Staff Name Function Sanjiv Roche MD Performing Physician Felice Chavez RT Monitor Tomas York RT Scrub Buffie Richmond RN Nurse Procedure Data Cath Procedure Fluoroscopy Diagnostic fluoroscopy Total fluoroscopy Time: 8.4 time: 8.4 min min Diagnostic fluoroscopy Total fluoroscopy dose: dose: 1334 mGy 1334 mGy Contrast Material Contrast Material Type Amount (ml) Isovue 300 100 Entry Location Entry Primary Successful Side Size Upsize Upsize Entry Closure Succes sful Closure Location (Fr) 1 (Fr) 2 (Fr) Remarks Device Remarks Femoral Right 5 Fr 6 Fr Exoseal artery Short Estimated blood loss: 10 ml Diagnostic catheters Device Type Used For End Catheter Placement MULTIPACK JL 4.0 5Fr Procedure catheter MULTIPACK 3DRC 5Fr Procedure catheter Procedure Complications No complications Procedure Medications Medication Administration Route Dosage Oxygen etCO2 Nasal cannula 2 l/min Lidocaine 2% added to field 20 Heparin Flush Bag added to field 2 bags (1000units/500ml NS) 0.9% NaCl I.V. 100 ml/hr Versed I.V. 1 mg Fentanyl I.V. 50 mcg Heparin Bolus I.V. 4000 units Integrilin (Bolus I.V. 9 ml 2mg/ml) Versed I.V. 1 mg Fentanyl I.V. 50 mcg Versed I.V. 1 mg Fentanyl I.V. 50 mcg Plavix P.O. 600 mg Hemodynamics Rest HGB: 14.9 (g/dl) Heart Rate: 61 (bpm) Snapshots Pre Cath Intra NCS Post Cath Vital Signs Time Heart Resp SPO2 etCO2 NIBP (mmHg) Rhythm Pain Sedation Rate (ipm) (%) (mmHg) Status Level (bpm) 15:27:30 62 13 97 44.3 135/96(116) NSR 0 (11) 10(A) , No pain 15:32:50 60 15 98 37.6 141/96(107) NSR 0 (11) 10(A) , No pain 15:37:04 60 14 94 41.3 147/103(117) NSR 0 (11) 10(A) , No pain 15:41:26 61 13 96 53.3 137/90(116) NSR 0 (11) 9(A) , No pain 15:45:44 68 13 96 50.3 132/91(108) NSR 0 (11) 9(A) , No pain 15:50:06 69 14 94 53.3 111/72(94) NSR 0 (11) 9(A) , No pain 15:54:12 69 13 97 15.7 128/89(106) NSR 0 (11) 9(A) , No pain 15:58:22 68 14 97 50.3 130/92(113) NSR 0 (11) 9(A) , No pain 16:02:36 70 15 97 51 133/94(112) NSR 0 (11) 10(A) , No pain 16:06:52 68 13 96 50.3 128/89(109) NSR 0 (11) 10(A) , No pain Medications Time Medication Route Dose Verified Delivered Reason Notes Effectiveness by by 15:36:19 Oxygen etCO2 2 Sanjiv Buffie used for Nasal l/min St Milton Richmond RN procedure cannula 15:36:28 Lidocaine 2% added 20ml Sanjiv Sanjiv for local to vial [facility] anesthetic field MD EDMONDSON 15:36:36 Heparin Flush added 2 Sanjiv Sanjiv used for Bag to bags [facility] procedure (1000units/500ml field MD EDMONDSON NS) 15:36:46 0.9% NaCl I.V. 100 Sanjiv Buffie Per physician ml/hr St Milton Richmond RN, MD 15:37:42 Versed I.V. 1 mg Sanjiv Buffie for sedation St Milton Richmond RN, MD 15:37:48 Fentanyl I.V. 50 Sanjiv Buffie for sedation mcg [facility] Milton Richmond RN, MD 15:42:02 Versed I.V. 1 mg Sanjiv Buffie for sedation St Milton Richmond RN, MD 15:42:06 Fentanyl I.V. 50 Sanjiv Choie for sedation mcg [facility] Milton Richmond RN, MD 15:48:05 Heparin Bolus I.V. 4000 Sanjiv Choie for verif ied units St Milton Richmond RN anticoagulation with dr MD garsia 15:51:18 Integrilin I.V. 9 ml Sanjiv Choie for waste d 1 (Bolus 2mg/ml) St Milton Richmond RN antiplatelet ml of MD therapy vial 16:01:01 Versed I.V. 1 mg Sanjiv Buffie for sedation St Milton Richmond RN, MD 16:01:06 Fentanyl I.V. 50 Sanjiv Buffie for sedation mcg St Milton Richmond RN, MD 16:13:37 Plavix P.O. 600 Sanjiv Choie for mg St Milton Richmond RN antiplatelet therapy Procedure Log Time Note 15:00:21 Informed consent obtained and on chart 15:00:24 Admit Source: Emergency department 15:00:41 Diagnostic Cath status Urgent 15:00:43 Tomas York RT(R) (CV) sent for patient. Start room use. 15:26:13 H&P Date Dictated: 06/30/2018 Within 30 days and on chart.. 15:26:18 Patient received from Med II to CCL 1 Alert and oriented. Tansferred to table in Supine position. 15:26:20 Warm blankets applied, and analy hugger turned on for patient comfort. 15:26:20 Correct patient and procedure confirmed by team. 15:26:21 ECG and BP/O2 sat monitors applied to patient. 15:26:22 Vital chart was started 15::23 Baseline sample Acquired. 15::25 Rhythm: sinus rhythm 15:: Pre-procedure instructions explained to patient. 15:26:29 Pre-op teaching completed and patient verbalized understanding. 15:26:30 Family in waiting room. 15:26:38 Patient NPO since Breakfast. 15:31:53 Patient allergic to Other allergySulfa, Idodinated Contrast 15:31:56 Is the patient allergic to Iodine/contrast media? Yes. 15:31:56 Was the patient premedicated? Yes 15:31:58 Is patient on blood thinner?No 15:32:00 Patient diabetic? No. 15:32:04 Previous problem with sedation/anesthesia? No ? 15:32:06 Snore? Yes 15:32:06 Sleep apnea? Yes 15:32:08 Deviated septum? No 15:32:08 Opens mouth fully? Yes 15:32:09 Sticks out tongue? Yes 15:32:16 Airway obstruction? Yes COPD/RPD 15:32:19 Dentures? No ? 15:32:21 Pre procedure: right dorsailis pedis pulse 1+ Palpable, but thready & weak; easily obliterated 15:32:24 Patient pain scale 0/10 ?. 15:32:29 IV patent on arrival in left antecubital with 0.9% NaCl at [facility]. 15:32:57 Lab Result : BUN 16 mg/dl 15:32:57 Lab Result : Hemoglobin 14.9 g/dl 15:32:57 Lab Result : Creatinine 1 mg/dl 15:32:57 Lab Result : Hematocrit 43.6 % 15:32:59 Lab results completed and on chart. 15:33:02 Right groin area was prepped with chlora-prep and draped in sterile fashion 15:33:03 Alarms reviewed by R. N. 15:33:03 Sharps counted by scrub and verified by R.N. 15:33:05 Use device set Femoral Dx 15:33:07 ACIST Syringe (77905) opened to sterile field. 15:33:07 Bag Decanter (2002S) opened to sterile field. 15:33:08 Medline Cath Pack ([id number]) opened to sterile field. 15:33:09 ACIST Hand Control (54819) opened to sterile field. 15:33:09 ACIST Manifold (56093) opened to sterile field. 15:33:10 Tegaderm 4 x 4 (1626W) opened to sterile field. 15:33:12 SHEATH 5FR [place] (EER053) opened to sterile field. 15:33:13 DIAGNOSTIC Multipack 5Fr catheter set (CZ1181) opened to sterile field. 15:33:14 DIAGNOSTIC WIRE .035 260cm J wire (046035) opened to sterile field. 15:33:20 Physician arrived 15:33:21 --------ALL STOP TIME OUT------ 15:33:21 Final Timeout: patient, procedure, and site verified with staff and physician. All members of the team are in agreement. 15:33:22 Right groin site verified by team. 15:33:28 Maximum allowable Isovue 300 dose 300ml. Physician notified. (300ml for normal creatinines. For patients with creatinine of 1.7 or higher multiply weight(kg) x 5 divided by creatinine.) 15:33:31 Fire Safety Assessment: A--An alcohol-based skin anteseptic being used preoperatively., C--Open oxygen or nitrous oxide is being used., D--An ESU, laser, or fiber-optic light is being used. 15:33:33 Physical assessment completed. ASA score P 3 - A patient with severe systemic disease as per Sanjiv Roche MD. 15:33:42 Sedation plan: IV Moderate Sedation Medication:Versed, Fentanyl 15:36:19 Oxygen 2 l/min etCO2 Nasal cannula was administered by Cindy Richmond RN; used for procedure; 15:36:28 Lidocaine 2% 20ml vial added to field was administered by Sanjiv Roche MD; for local anesthetic; 15:36:36 Heparin Flush Bag (1000units/500ml NS) 2 bags added to field was administered by Sanjiv Roche MD; used for procedure; 15:36:46 0.9% NaCl 100 ml/hr I.V. was administered by Cindy Richmond RN; Per physician; 15:37:42 Versed 1 mg I.V. was administered by Cindy Richmond RN; for sedation; 15:37:48 Fentanyl 50 mcg I.V. was administered by Cindy Richmond RN; for sedation; 15:40:11 Zero performed for pressure channel P1 15:40:18 Zero performed for pressure channel P1 15:40:29 Procedure started. 15:40:29 Full Disclosure recording started 15:40:40 Local anesthetic to right femoral artery with Lidocaine 2% by Sanjiv Roche MD.INITIAL ACCESS ONLY 15:40:50 A 5 Fr sheath was inserted into the Right Femoral artery 15:41:03 A MULTIPACK JL 4.0 5Fr catheter was advanced over the wire and used for Procedure. 15:42:02 Versed 1 mg I.V. was administered by Cindy Richmond RN; for sedation; 15:42:06 Fentanyl 50 mcg I.V. was administered by Cindy Richmond RN; for sedation; 15:42:22 LCA angiography performed. 15:42:36 Catheter exchanged over wire. 15:42:45 A MULTIPACK 3DRC 5Fr catheter was advanced over the wire and used for Procedure. 15:43:47 RCA angiography performed. 15:44:44 SVG to Diag angiography performed. 15:45:06 LUI to LAD angiography performed. OCCLUDED 15:47:19 Catheter removed. 15:47:27 SHEATH 6FR [place] (USE478) opened to sterile field. 15:47:35 WHISPER 300cm guide wire ([id number]) opened to sterile field. 15:47:36 INFLATOR [place] BasixCompak (AV4247) opened to sterile field. 15:47:45 GUIDE 6FR XBLAD 3.5 catheter ([id number]) opened to sterile field. 15:47:58 Sheath upsized to a 6 Fr Short. 15:48:04 6 Fr XBLAD 3.5 guide catheter was inserted over the wire 15:48:05 Heparin Bolus 4000 units I.V. was administered by Cindy Richmond RN; for anticoagulation; verified with dr garsia 15:48:08 WHISPER wire advanced. 15:51:18 Integrilin (Bolus 2mg/ml) 9 ml I.V. was administered by Cindy Richmond RN; for antiplatelet therapy; wasted 1 ml of vial 15:52:25 Inflate balloon Inflation number: 1 A EMERGE OTW 3.5 x 20 balloon ([id number]) was prepped and advanced across the Mid LAD, then inflated to 8 WILLIAMS for 0:45 (min:sec). 15:54:04 Balloon removed over the wire. 15:57:55 Inflate balloon Inflation number: 2 A WOLVERINE Rx 3.0 x 10 cutting balloon ([id number]) was prepped and advanced across the Mid LAD, then inflated to 10 WILLIAMS for 0:45 (min:sec). 15:58:54 Inflation number: 3 The WOLVERINE Rx 3.0 x 10 cutting balloon ([id number]) was reinflated across the Mid LAD, to 10 WILLIAMS for 0:45 (min:sec). 15:59:27 Inflation number: 4 The WOLVERINE Rx 3.0 x 10 cutting balloon ([id number]) was reinflated across the Mid LAD, to 10 WILLIAMS for 0:45 (min:sec). 16:00:01 Inflation number: 5 The WOLVERINE Rx 3.0 x 10 cutting balloon ([id number]) was reinflated across the Mid LAD, to 10 WILLIAMS for 0:45 (min:sec). 16:00:31 Inflation number: 6 The WOLVERINE Rx 3.0 x 10 cutting balloon ([id number]) was reinflated across the Mid LAD, to 10 WILLIAMS for 0:45 (min:sec). 16:00:38 Balloon removed over the wire. 16:01:01 Versed 1 mg I.V. was administered by Cindy Richmond RN; for sedation; 16:01:06 Fentanyl 50 mcg I.V. was administered by Cindy Richmond RN; for sedation; 16:03:22 Inflation number: 7 The EMERGE OTW 3.5 x 20 balloon ([id number]) was reinflated across the Mid LAD, to 6 WILLIAMS for 0:45 (min:sec). 16:04:00 Inflation number: 8 The EMERGE OTW 3.5 x 20 balloon ([id number]) was reinflated across the Mid LAD, to 8 WILLIAMS for 0:45 (min:sec). 16:05:21 Inflation number: 9 The EMERGE OTW 3.5 x 20 balloon ([id number]) was reinflated across the Mid LAD, to 12 WILLIAMS for 0:45 (min:sec). 16:05:58 Inflation number: 10 The EMERGE OTW 3.5 x 20 balloon ([id number]) was reinflated across the Mid LAD, to 8 WILLIAMS for 0:45 (min:sec). 16:06:35 Inflation number: 11 The EMERGE OTW 3.5 x 20 balloon ([id number]) was reinflated across the Mid LAD, to 0 WILLIAMS for 0:00 (min:sec). 16:06:37 Balloon removed over the wire. 16:06:37 Wire removed. 16:06:39 Guide catheter removed. 16:06:44 EXOSEAL 6Fr (EX600) opened to sterile field. 16:06:54 Sheath removed intact; hemostasis achieved with Exoseal to the Right Femoral artery. 16:07:02 Procedure ended.(Physican Out) 16:07:19 Fluoroscopy time 08.40 minutes. 16:07:24 Flurop Dose total: 1334 16:07:24 Fluoroscopy dose: 1334 mGy 16:07:27 Contrast amount:Isovue 300 100ml. 16:07:29 Sharps counted by scrub and verified by R.N. 16:07:30 Insertion/operative site no bleeding no hematoma. 16:07:43 Post-op/insertion site Right Femoral artery dressed using a 4 x 4 and Tegaderm. 16:07:48 Post right femoral artery:stable, soft, clean and dry 16:08:57 Post procedure rhythm: unchanged. 16:09:01 Estimated blood loss: 10 ml 16:09:03 Post procedure instruction explained to patient.Patient verbalizes understanding. 16:09:04 Patient needs reinforcement of post procedure teaching. 16:09:19 Procedure type changed to Cath procedure, Diagnostic procedure, LHC, LHC w/Coronaries, Sedation Charges, Moderate Sedation up to 30 minutes, PCI procedure, PTCA, PTCA Initial 16::44 Procedure and supply charges have been captured, reviewed, submitted and are correct. 16:09:46 Procedure Complication : No complications 16:09:48 Vital chart was stopped 16:09:49 See physician's report for complete and final results. 16:09:51 Report given to PCU. 16:09:53 Patient transfered to PCU with Stretcher. 16:09:55 Procedure ended. 16:09:55 Full Disclosure recording stopped 16:09:59 End room use (Document Last) 16:13:37 Plavix 600 mg P.O. was administered by Cindy Richmond RN; for antiplatelet therapy; Intervention Summary Intervention Notes Time ActionType Lesion and Equipment Action# Pressure Duration Attributes Used 15:52:25 Inflate Mid LAD EMERGE OTW 1 8 00:45 balloon 3.5 x 20 balloon ([id number]) 15:57:55 Inflate Mid LAD WOLVERINE Rx 2 10 00:45 balloon 3.0 x 10 cutting balloon ([id number]) 15:58:54 Reinflate Mid LAD WOLVERINE Rx 3 10 00:45 balloon 3.0 x 10 cutting balloon ([id number]) 15:59:27 Reinflate Mid LAD WOLVERINE Rx 4 10 00:45 balloon 3.0 x 10 cutting balloon ([id number]) 16:00:01 Reinflate Mid LAD WOLVERINE Rx 5 10 00:45 balloon 3.0 x 10 cutting balloon ([id number]) 16:00:31 Reinflate Mid LAD WOLVERINE Rx 6 10 00:45 balloon 3.0 x 10 cutting balloon ([id number]) 16:03:22 Reinflate Mid LAD EMERGE OTW 7 6 00:45 balloon 3.5 x 20 balloon ([id number]) 16:04:00 Reinflate Mid LAD EMERGE OTW 8 8 00:45 balloon 3.5 x 20 balloon ([id number]) 16:05:21 Reinflate Mid LAD EMERGE OTW 9 12 00:45 balloon 3.5 x 20 balloon ([id number]) 16:05:58 Reinflate Mid LAD EMERGE OTW 10 8 00:45 balloon 3.5 x 20 balloon ([id number]) 16:06:35 Reinflate Mid LAD EMERGE OTW 11 0 00:00 balloon 3.5 x 20 balloon ([id number]) Device Usage Item Name Manufacture Quantity Catalog Number [facility] Lot# / Charge Number Stock Stock Serial# Code ACIST Acist 1 69480 978209 446720 863423 20 Syringe Medical (16920) Systems Inc Bag Decanter Microtek 1 2001S 595490 42068 917298 5 (2001S) Medical Inc. Medline Cath Medline 1 [id number] 387349 05651 485801 5 Pack ([id number]) ACIST Hand Acist 1 43129 127041 302795 570982 5 Control Medical (39004) Systems Inc ACIST Acist 1 04233 562430 585300 437235 5 Manifold Medical (82046) Systems Inc Tegaderm 4 x 3M 1 1626W 188874 171141 449981 5 4 (1626W) SHEATH 5FR Terumo 1 HUR406 526986 378532 678456 5 [place] (UFD042) DIAGNOSTIC Cardinal 1 CN5904 973504 97728 675718 30 Multipack Health 5Fr catheter set (KJ3405) DIAGNOSTIC St Catracho 1 380700 828195 390730 663139 30 WIRE .035 260cm J wire (487671) MULTIPACK JL Cardinal 1 201547 5 4.0 5Fr Health catheter MULTIPACK Cardinal 1 074237 5 3DRC 5Fr Health catheter SHEATH 6FR Terumo 1 HPX429 777547 420183 334847 40 [place] (NZH921) WHISPER Jack 1 [id number] 781591 904221 280256 5 300cm guide Vascular wire (2513293VX) INFLATOR [facility] 1 BJ1358 934348 876755 959089 15 [facility] BasixCompak (ZV6329) GUIDE 6FR Cardinal 1 54026964 118326 193565 489724 10 XBLAD 3.5 Health catheter (98000612) EMERGE OTW Primghar 1 [id number] 439615 770581 079129 5 [id number] 3.5 x 20 Scientific balloon ([id number]) WOLVERINE Rx Primghar 1 [id number] 705960 5950138 446483 5 3.0 x 10 Scientific cutting balloon ([id number]) EXOSEAL 6Fr Cardinal 1 EX600 772522 967137 129684 10 (EX600) Health Signature Audit Elliott Stage Time Signature Unsigned Intra-Procedure 06/30/2018 Felice Chavez 4:14:09 PM RT(R) Signatures Monitor : Felice Chavez RT Signature : Date : Time : [facility] [address] [place] [address]
--- NOTE | ~2018-06-29 | OP ---
PATIENT NAME: IKER LOWE MEDICAL RECORD: [id number] :[birth year] LOCATION:D.M2 D.2115 ADMISSION DATE:06/29/18 SURGEON: JACQUELINE ALEMAN MD DATE OF OPERATION: 06/30/2018 PROCEDURES: Left heart catheterization, PTCA of the LAD, right femoral artery approach. CATHETERS: A 5-[place] sheath, 5/4 left and right Joey, 5/4 pig. The procedure was well tolerated. We proceeded with PTCA of the LAD. FINDINGS: Left ventriculography not performed. CORONARY ANATOMY: LEFT MAIN: Left main is free of disease. LAD: It has severe in-stent restenosis from just after takeoff to septal into stenting. CIRCUMFLEX: Free of disease. RIGHT CORONARY ARTERY: Dominant and free of disease. SAPHENOUS VEIN GRAFT TO DIAGONAL: Patent throughout its course with JEFFERY 3 with runoff distally. LUI: LUI fills to the mid portion of the chest wall, becomes atretic and totally occluded. PLAN: Intervention of LAD momentarily. DESCRIPTION: A 5-[place] sheath was exchanged for a 6-[place] sheath. XB LAD guiding catheter provided good guide catheter support followed by 300 cm Whisper wire placed across the area of marked 90% restenosis. Next, we used a 3.0 cutting balloon to establish lumen and then a 3.0 x 15 [place] balloon. Final angiography shows excellent resolution of 90 plus percent restenosis with 10% residual. JEFFERY flow was 3 throughout the procedure. If restenosis again recurs, could consider laser at that point. TRANSINT:[id number] Voice Confirmation ID: [id number] DOCUMENT ID: [id number] JACQUELINE ALEMAN MD CC: [id number] DICTATION DATE: 06/30/18 1613 LEARNING STRATEGIST: 06/30/182002 ADM IN [facility] [address] [place] [address]
[~2018-06-29 11:02] MED LIST changes: +SYMBICORT 16010.2 GM INH
[2018-06-29] MEDS ORDERED: TOPROL XL50 MG PO ×2 (11:37→15:11)
[2018-06-29 12:00] VITALS: BP 180/91
[2018-06-29 12:00] LABS: HEMATOCRIT 44.6 % (42.0-54.0); HEMOGLOBIN 15.3 g/dL (13.5-17.5); LYMPHOCYTES 28.3 % (15-50); MCH 30.2 pg (26.0-34.0); MCHC 34.3 g/dL (31.0-37.0); MCV 88.1 fL (80.0-100.0); MEAN PLATELET VOLUME 8.9 fL (7.4-10.4); NEUTROPHILS 55.8 % (40-80); PLATELET COUNT 226 10x3/uL (130-400); RBC 5.06 10x6/uL (4.20-6.10); RDW 13.2 % (11.5-14.5)
[2018-06-29 12:13] LABS: ALKALINE PHOSPHATASE 185 U/L (46-116); ALT (SGPT) 27 U/L (10-68); BILIRUBIN - TOTAL 0.28 mg/dL (0.2-1.3); CALC OSMOLALITY 279 mosm/kg (275-300); CALCIUM 8.7 mg/dL (8.5-10.1); CHLORIDE - SERUM 102 mmol/L (98-107); GLUCOSE 104 mg/dL (74-106); POTASSIUM - SERUM 4.5 mmol/L (3.5-5.1); PROTEIN - SERUM 7.3 g/dL (6.4-8.2); SODIUM 139 mmol/L (136-145); UREA NITROGEN 17 mg/dL (7-18); eGFR NON AFRICAN AMERICAN 82 mL/min (90-120)
[2018-06-29 12:25] LABS: CKMB 0.6 U/L (0.0-3.6); CREATINE KINASE 129 UL (21-232); TROPONIN-I < 0.017 ng/mL (0.000-0.060)
[2018-06-29 12:42] LABS: APTT 41.6 SECONDS (22.8-39.4); INR 2.27 (0.85-1.17); PROTIME 24.4 SECONDS (11.6-15.0)
[2018-06-29 13:00] VITALS: BP 153/97
--- NOTE | 2018-06-29 13:24 | NUR ---
ASA 325MG ON HOLD PER
[2018-06-29 14:00] VITALS: BP 146/88
--- NOTE | 2018-06-29 14:55 | NUR ---
TRANSFER FROM ER BY STRETCHER. OREINTED TO ROOM. CALL LIGHT IN REACH. WILL CONT. PLAN OF CARE.
[2018-06-29 15:13] VITALS: BP 171/93; BMI 31.6
--- NOTE | 2018-06-29 19:46 | NUR ---
RESUMING PATIENT CARE. PATIENT IS ALERT AND ORIENTED, RESTING COMFORTABLY IN BED. RESPIRATIONS ARE EVEN AND UNLABORED. DENIES NEEDS. NO S/S OF DISTRESS. NO C/O PAIN. CALL LIGHT WITHIN REACH. WILL CPOC.
[2018-06-29 20:00] VITALS: BP 164/97
[2018-06-29 23:30] VITALS: BP 103/60; BP 155/92
[2018-06-30 04:30] VITALS: BP 136/95
[2018-06-30 06:20] LABS: BASOPHILS 0.8 % (0-2); EOSINOPHILS 6.2 % (0-7); HEMATOCRIT 43.6 % (42.0-54.0); HEMOGLOBIN 14.9 g/dL (13.5-17.5); IMMATURE GRANULOCYTES 0.2 % (0-5); LYMPHOCYTES 38.5 % (15-50); MCHC 34.2 g/dL (31.0-37.0); MCV 87.7 fL (80.0-100.0); MEAN PLATELET VOLUME 10.1 fL (7.4-10.4); MONOCYTES 8.2 % (2-11); NEUTROPHILS 46.1 % (40-80); PLATELET COUNT 205 10x3/uL (130-400); RBC 4.97 10x6/uL (4.20-6.10); RDW 13.4 % (11.5-14.5); WBC 6.6 10x3/uL (4.8-10.8)
[2018-06-30 06:42] LABS: CALC OSMOLALITY 277 mosm/kg (275-300); CALCIUM 8.3 mg/dL (8.5-10.1); CARBON DIOXIDE 30.6 mmol/L (21.0-32.0); CHLORIDE - SERUM 103 mmol/L (98-107); GLUCOSE 89 mg/dL (74-106); POTASSIUM - SERUM 4.3 mmol/L (3.5-5.1); SODIUM 139 mmol/L (136-145); UREA NITROGEN 16 mg/dL (7-18); eGFR NON AFRICAN AMERICAN 82 mL/min (90-120)
[2018-06-30 06:51] LABS: INR 1.83 (0.85-1.17); PROTIME 20.5 SECONDS (11.6-15.0)
--- NOTE | 2018-06-30 07:25 | NUR ---
RECEIVED PT IN BED AAOX4 RESP UNLABORED PT C/O PAIN TO LEGS 10/18 NORCO 10 GIVEN PO AT THIS TIME
[2018-06-30 08:43] VITALS: BP 147/95
[2018-06-30 11:45] VITALS: BP 137/96
[2018-06-30 15:38] VITALS: BP 143/91
[2018-06-30 20:00] VITALS: BP 135/80
--- NOTE | 2018-06-30 20:00 | NUR ---
RESUMING PATIENT CARE. PATIENT IS ALERT AND ORIENTED, RESTING COMFORTABLY IN BED. RIGHT GROIN, SOFT, NO REDDNESS, DRESSING C/D/I. RESPIRATIONS ARE EVEN AND UNLABORED. NEEDS MET. CALL LIGHT WITHIN REACH. WILL CPOC.
[2018-06-30 20:59] LABS: APPEARANCE CLEAR (CLEAR); BILIRUBIN NEGATIVE (NEGATIVE); COLOR YELLOW (YELLOW); GLUCOSE 250 mg/dL (NEGATIVE); KETONE NEGATIVE (NEGATIVE); NITRITE NEGATIVE (NEGATIVE); PROTEIN NEGATIVE (NEGATIVE); UROBILINOGEN NORMAL (NORMAL)
[2018-07-01] VITALS: BP 144/93
[2018-07-01 06:28] LABS: BASOPHILS 0.1 % (0-2); EOSINOPHILS 0.1 % (0-7); HEMATOCRIT 43.7 % (42.0-54.0); HEMOGLOBIN 14.8 g/dL (13.5-17.5); IMMATURE GRANULOCYTES 0.4 % (0-5); LYMPHOCYTES 8.3 % (15-50); MCH 29.8 pg (26.0-34.0); MCHC 33.9 g/dL (31.0-37.0); MCV 87.9 fL (80.0-100.0); MEAN PLATELET VOLUME 9.6 fL (7.4-10.4); MONOCYTES 7.3 % (2-11); NEUTROPHILS 83.8 % (40-80); RBC 4.97 10x6/uL (4.20-6.10); RDW 13.2 % (11.5-14.5)
[2018-07-01 06:43] LABS: PLATELET COUNT 264 10x3/uL (130-400); WBC 16.3 10x3/uL (4.8-10.8)
[2018-07-01 07:08] LABS: ANION GAP 13.8 mmol/L (8-16); CALCIUM 8.5 mg/dL (8.5-10.1); CARBON DIOXIDE 27.2 mmol/L (21.0-32.0)
[2018-07-01 07:10] LABS: CREATININE - SERUM 1.3 mg/dL (0.6-1.3)
--- NOTE | 2018-07-01 07:46 | NUR ---
0700 REPORT RECEIVED FROM TELEPHONE CLERK TELEGRAPH OFFICE NURSE. PT AWAKE. AT BEDSIDE. NO DISTRESS NOTED. POC GIVEN TO BOTH PT AND FAMILY. BOTH UNDERSTAND. MONITOR SHOWS NSR @ 75.
[2018-07-01 09:38] VITALS: BP 119/77
[2018-07-01 12:43] VITALS: BP 109/63
[2018-07-01 13:46] LABS: PROTIME 17.2 SECONDS (11.6-15.0)
[2018-07-01 13:54] LABS: INR 1.46 (0.85-1.17)
[2018-07-01 14:03] VITALS: Ht 177.8 cm; Wt 99.8 kg
[2018-07-01] MEDS ORDERED: COUMADIN7.5 MG PO (15:48)
[2018-07-01] MEDS ORDERED: LOVENOX INJ100 MG/ML SC (16:16)
--- NOTE | 2018-07-01 17:00 | NUR ---
REVIEWED DISCHARGE INSTRUCTIONS WITH PT AND BOTH STATE UNDERSTANDING COPY GIVEN DCD SALINE LOCK TO LAC WITH IV CATHETER INTACT SITE FREE OF REDNESS OR EDEMA PT DISCHARGED HOME LEFT UNIT IN STABLE CONDITION VIA W/C WITH ALL PERSONAL BELONGINGS
--- NOTE | 2018-07-01 17:02 | MORECARE ---
CASE MANAGEMENT DISCHARGE SUMMARY PATIENT: IKER LOWE UNIT: [id number] ADM DATE: 06/29/18 AGE: 58 : [birth year] SEX: M ROOM/BED: D.5255 AUTHOR: GARRICKDOC PHYSICIAN: REFERRING PHYSICIAN: ROSELIA QUEVEDO MD DATE OF SERVICE: 07/01/18 Discharge Plan Patient Name: IKER LOWE Facility: [facility]:[place] : 1960 Planned Disposition: Home Anticipated Discharge Date: 07/01/18 Discharge Date: Expected LOS: 2 Initial Reviewer: [email or web address] Initial Review Date: 07/01/2018 Generated: 07/01/18 6:02 pm Comments DCP- Discharge Planning Updated by [email or web address]: Caleb Xavier on 07/01/18 4:[address] Patient Name: IKER LOWE Admission Status: ER Accout number: [id number] Admission Date: 06-29-2018 : 1960 Admission Diagnosis: Attending: ROSELIA QUEVEDO Current LOS: 2 Anticipated DC Date: 07-01-2018 Planned Disposition: Home Primary Insurance: MEDICARE A & B Discharge Planning Comments: CM MET WITH PT IN ROOM TO DISCUSS DISCHARGE PLANNING AND NEEDS. PT REPORTS LIVING AT HOME INDEPENDENTLY WITH SPOUSE. PT HAS CPAP, NEBULIZER, HOME AND PORTABLE OXGYEN FROM [facility] IN [place], [place]. PT HAS NO OUTSIDE SERVICES ASSISTING IN THE HOME. CM DISCUSSED AVAILABILITY OF HOME HEALTH, REHAB SERVICES AND MEDICAL EQUIPMENT. PT DENIES DISCHARGE NEEDS, REPORTS HIS SPOUSE WILL PICK HIM UP FOR DISCHARGE HOME. IMPORTANT MESSAGE FROM MEDICARE PROVIDED AND EXPLAINED. Benefits Representative: Caleb Xavier DCPIA - Discharge Planning Initial Assessment Updated by [email or web address]: Caleb Xavier on 07/01/18 4:55 pm * Is the patient Alert and Oriented? Yes * How many steps to enter\exit or inside your home? NONE * PCP DR. MADELEINE JARA, [place], [place] * Pharmacy [facility] OR [facility], [place], [place] * Preadmission Environment Home with Family * ADLs Independent * Equipment CPAP Nebulizer Oxygen * Other Equipment HOME AND PORTABLE OXYGEN, [facility], [place], [place] * List name and contact numbers for known caregivers / representatives who currently or will assist patient after discharge: ANSELMO LOWE, SPOUSE, * Verbal permission to speak to the caregivers and representatives has been obtained from the patient. Yes * Community resources currently utilized None * Please name any agencies selected above. NONE * Additional services required to return to the preadmission environment? No * Can the patient safely return to the preadmission environment? Yes * Has this patient been hospitalized within the prior 30 days at any hospital? No Coverage Notice Reviewer: [email or web address] Marybeth Xavier Notice Issued Date-Time: 07/01/2018 16:00 Notice Type: IM Discharge Notice Notice Delivered To: Patient Relationship to Patient: Tire Tester Name: Delivery Method: HAND - Hand Delivered Christiana Days: Prior Verbal Notification: Recipient Understood Notice: Yes Recipient Signature: Yes Med Rec Note Co-signed by Attending: Coverage Notice Comment: Patient Name: IKER LOWE Page [id number] at 1702 All edits/amendments must be made on the electronic document DICTATION DATE: 07/01/181701 POSTAL DELIVERY OFFICER: HINA 07/01/181701 RPT#: [id number] DC DATE: STATUS: ADM IN [facility] [address] [place] [address] END OF REPORT
== END 2018-07-01 17:00 | disposition home or self-care (01) | DRG 251 ==
LOC: D.ER 11:02 → D.M2 13:32
PROVIDERS: Family Medicine; Internal Medicine Cardiovascular Disease; Internal Medicine Interventional Cardiology; ADMIT Internal Medicine Nephrology; ATTEND Internal Medicine Nephrology
PROC: 02703ZZ Dilation of Coronary Artery, One Artery, Percutaneous Approach (ICD-10-PCS; principal; 2018-06-30 15:00)
DX: I24.9 Acute ischemic heart disease, unspecified (principal); T82.855A Stenosis of coronary artery stent, initial encounter; I25.10 Atherosclerotic heart disease of native coronary artery without angina pectoris; Y83.9 Surgical procedure, unspecified as the cause of abnormal reaction of the patient, or of later complication, without mention of misadventure at the time of the procedure; I10 Essential (primary) hypertension; J44.9 Chronic obstructive pulmonary disease, unspecified

== ENCOUNTER 2018-07-25 13:25 | Inpatient (IN) | payer MEDICARE ==
[2018-07-25] VITALS (10 sets, daily range): BP systolic 115–154; BP diastolic 79–98; BMI 32.6
[~2018-07-25] VITALS: Ht 177.8 cm; Wt 104.1 kg
--- NOTE | ~2018-07-25 | HEMODYNAMI ---
PATIENT:IKER LOWE MEDICAL RECORD: [id number] : 64 LOC[facility] [id number] ADMISSION DATE: 07/26/18 Generatedon:07/27/201813:04 Patient name: IKER LOWE Patient #: [id number] SSN: DO B: 1960 Date of study: 07/27/2018 Page: Of Hemodynamic Procedure Report Patient Data Patient Demographics Procedure consent was obtained First Name: IKER Gender: Male Last Name: MYNOR : 1960 [facility] Initial: VALERIA Age: 58 year(s) Patient #: [id number] Race: Unknown Additional ID: [id number] Contact details Address: [address] [place] [address] State: [place] City: [place] Zip code: [address] Past Medical History Allergies Allergen Reaction Date Comments Reported Other allergy 12/22/2016 Iodine, Sulfa Other allergy 06/30/2018 Sulfa, Idodinated Contrast Other allergy 07/27/2018 CONTRAST, SULFA Admission Admission Data Admission Date: 07/26/2018 Admission Time: 14:45 Room #: D.2117 Height (in.): 70 BSA: 2.2 (m2) Height (cm.): 177.8 BMI: 32.58 (kg/m2) Weight (lbs.): 227.08 Weight (kg.): 103 Lab Results Lab Result Date: 07/27/2018 Lab Result Time: 0:00 Biochemistry Name Units Result Min Max BUN mg/dl 13 --(--*-)-- 7 18 Creatinine mg/dl 1.1 --(--*-)-- 0.6 1.3 CBC Name Units Result Min Max Hematocrit % 40.9 -*(----)-- 42 54 Hemoglobin g/dl 13.6 --(*---)-- 13.5 17.5 Procedure Procedure Types Cath Procedure Diagnostic Procedure C Coronaries only FFR/IVUS FFR Initial Intra-Coronary IVUS Initial Sedation Charges Moderate Sedation up to 15 minutes PCI Procedure PTCA PTCA Initial Procedure Description Procedure Date Procedure Date: 07/27/2018 Procedure Start Time: 12:33 Procedure End Time: 13:02 Procedure Staff Name Function Alberto Simmons MD Performing Physician Felice Chavez RT Monitor Lidiaemily Palomares RT Scrub Cindy Richmond RN Nurse Jaden Shelley RN Banana Room Cutter Procedure Data Cath Procedure Fluoroscopy Diagnostic fluoroscopy Total fluoroscopy Time: 5.2 time: 5.2 min min Diagnostic fluoroscopy Total fluoroscopy dose: dose: 1137 mGy 1137 mGy Contrast Material Contrast Material Type Amount (ml) Isovue 300 76 Entry Location Entry Primary Successful Side Size Upsize Upsize Entry Closure Succes sful Closure Location (Fr) 1 (Fr) 2 (Fr) Remarks Device Remarks Femoral Right 5 Fr 6 Fr Exoseal artery Short Estimated blood loss: 10 ml Diagnostic catheters Device Type Used For End Catheter Placement MULTIPACK JL 4.0 5Fr Procedure catheter MULTIPACK 3DRC 5Fr Procedure catheter DIAGNOSTIC 3DRC 5Fr Procedure catheter ([id number]) Procedure Complications No complications Procedure Medications Medication Administration Route Dosage Oxygen etCO2 Nasal cannula 2 l/min Lidocaine 2% added to field 20 Heparin Flush Bag added to field 2 bags (1000units/500ml NS) 0.9% NaCl I.V. 100 ml/hr Solumedrol I.V. 125 mg Versed I.V. 1 mg Fentanyl I.V. 50 mcg Versed I.V. 1 mg Fentanyl I.V. 50 mcg Heparin Bolus I.V. 4000 units Hemodynamics Rest BSA: 2.2 (m2) HGB: 13.6 (g/dl) O2 Consumption: Estimated: 251.67 (ml/min) O2 Con sumption indexed: Estimated:114.4 (ml/min/m) Heart Rate: 60 (bpm) Snapshots Pre Cath Intra NCS Post Cath Vital Signs Time Heart Resp SPO2 etCO2 NIBP (mmHg) Rhythm Pain Sedation Rate (ipm) (%) (mmHg) Status Level (bpm) 12:19:59 60 12 99 41.6 148/99(121) NSR 0 (11) 10(A) , No pain 12:24:17 63 12 97 30.4 141/94(123) NSR 0 (11) 10(A) , No pain 12:28:37 62 14 96 9.6 147/90(110) NSR 0 (11) 10(A) , No pain 12:32:57 65 15 96 40.1 122/104(116) NSR 0 (11) 9(A) , No pain 12:37:07 63 15 96 34.1 135/98(115) NSR 0 (11) 9(A) , No pain 12:41:25 73 20 95 37.8 147/91(122) NSR 0 (11) 9(A) , No pain 12:45:47 68 13 97 38.6 143/99(108) NSR 0 (11) 9(A) , No pain 12:50:07 66 14 95 37.9 135/89(117) NSR 0 (11) 9(A) , No pain 12:54:23 68 16 96 40.1 145/94(123) NSR 0 (11) 10(A) , No pain 12:58:43 68 10 96 41.6 138/96(111) NSR 0 (11) 10(A) , No pain 13:02:59 66 26 96 40.9 141/94(110) NSR 0 (11) 10(A) , No pain Medications Time Medication Route Dose Verified Delivered Reason Notes Effectiveness by by 12:21:42 Oxygen etCO2 2 Alberto White used for Nasal l/min Troy Richmond RN procedure cannula 12:21:47 Lidocaine 2% added 20ml Alberto Alberto for local to vial Troy Simmons MD anesthetic field 12:21:53 Heparin Flush added 2 Alberto Alberto used for Bag to bags Troy Simmons MD procedure (1000units/500ml field NS) 12:22:01 0.9% NaCl I.V. 100 Alberto Choie Per physician ml/hr Troy Richmond RN 12:22:09 Solumedrol I.V. 125 Alberto Choie Per physician mg Troy Richmond RN 12:30:25 Versed I.V. 1 mg Alberto Choie for sedation Troy Richmond RN 12:30:30 Fentanyl I.V. 50 Alberto Buffie for sedation mcg Troy Richmond RN 12:35:05 Versed I.V. 1 mg Alberto Choie for sedation Troy Richmond RN 12:35:09 Fentanyl I.V. 50 Alberto Choie for sedation mcg Tauth MD Richmond RN 12:47:57 Heparin Bolus I.V. 4000 Alberto White for verif ied units Troy Richmond RN anticoagulation with dr simmons Procedure Log Time Note 12:00:49 Signed procedure consent form obtained from patient. 12:00:51 Diagnostic Cath status Urgent 12:00:58 Jaden Shelley RN sent for patient. Start room use. 12:00:59 Time tracking: Regular hours (M-F 7:00 - 5:00) 12:01:02 Plan of Care:Hemodynamics will remain stable., Cardiac rhythm will remain stable., Comfort level will be maintained., Respiratory function will remain adequate., Patient/ family verbilizes understanding of procedure., Procedure tolerated without complication., Recovers from procedure without complications.. 12:02:13 Lab Result : BUN 13 mg/dl 12:02:13 Lab Result : Hemoglobin 13.6 g/dl 12:02:13 Lab Result : Creatinine 1.1 mg/dl 12:02:13 Lab Result : Hematocrit 40.9 % 12:02:20 Patient Weight : 227.08 lbs 12:02:22 Patient Height : 70 inches 12:02:50 Patient allergic to Other allergyCONTRAST, SULFA 12:09:12 Patient received from Med II to CCL 1 Alert and oriented. Tansferred to table in Supine position. 12:09:13 Warm blankets applied, and analy hugger turned on for patient comfort. 12:09:14 Correct patient and procedure confirmed by team. 12:09:15 ECG and BP/O2 sat monitors applied to patient. 12:18:51 Vital chart was started 12:19:30 Baseline sample Acquired. 12:19:40 Rhythm: sinus rhythm 12:19:41 Full Disclosure recording started 12:19:52 H&P Date Dictated: 07/26/2018 Within 30 days and on chart.. 12:19:53 Pre-procedure instructions explained to patient. 12:19:55 Family in patients room. 12:19:56 Patient NPO since Midnight. 12:19:59 Is the patient allergic to Iodine/contrast media? Yes. 12:20:04 ACC The patient was administered the following blood thiners within the last 24 hours: ACCPlavix 12:20:23 Patient diabetic? No. 12:20:32 Is patient on blood thinner?Yes 12:20:37 Was the patient premedicated? Yes 12:20:47 Previous problem with sedation/anesthesia? No ? 12:20:49 Snore? Yes 12:20:49 Sleep apnea? Yes 12:20:50 Deviated septum? No 12:20:59 Opens mouth fully? Yes 12:21:00 Sticks out tongue? Yes 12:21:03 Airway obstruction? No ? 12:21:04 Dentures? No ? 12:21:10 Pre procedure: right dorsailis pedis pulse Doppler 12:21:12 Patient pain scale 0/10 ?. 12:21:17 IV patent on arrival in right antecubital with 0.9% NaCl at [facility]. 12:21:19 Lab results completed and on chart. 12:21:22 Right groin area was prepped with chlora-prep and draped in sterile fashion 12:21:23 Alarms reviewed by R. N. 12:21:24 Sharps counted by scrub and verified by R.N. 12:21:27 Use device set Femoral Dx 12:21:29 ACIST Syringe (79726) opened to sterile field. 12:21:29 Bag Decanter (2002S) opened to sterile field. 12:21:30 Medline Cath Pack ([id number]) opened to sterile field. 12:21:31 ACIST Hand Control (66679) opened to sterile field. 12:21:31 ACIST Manifold (04008) opened to sterile field. 12:21:32 Tegaderm 4 x 4 (1626W) opened to sterile field. 12:21:33 DIAGNOSTIC Multipack 5Fr catheter set (BP2175) opened to sterile field. 12:21:34 SHEATH 5FR [place] (DWK439) opened to sterile field. 12:21:35 DIAGNOSTIC WIRE .035 260cm J wire (868784) opened to sterile field. 12:21:42 Oxygen 2 l/min etCO2 Nasal cannula was administered by Cindy Richmond RN; used for procedure; 12:21:47 Lidocaine 2% 20ml vial added to field was administered by Alberto Simmons MD; for local anesthetic; 12:21:53 Heparin Flush Bag (1000units/500ml NS) 2 bags added to field was administered by Alberto Simmons MD; used for procedure; 12:22:01 0.9% NaCl 100 ml/hr I.V. was administered by Cindy Richmond RN; Per physician; 12::09 Solumedrol 125 mg I.V. was administered by Cindy Richmond RN; Per physician; 12::09 Zero performed for pressure channel P1 12::14 Physician arrived 12::15 --------ALL STOP TIME OUT------ 12::15 Final Timeout: patient, procedure, and site verified with staff and physician. All members of the team are in agreement. 12:29:18 Right groin site verified by team. 12:29:20 Maximum allowable Isovue 300 dose 300ml. Physician notified. (300ml for normal creatinines. For patients with creatinine of 1.7 or higher multiply weight(kg) x 5 divided by creatinine.) 12:29:24 Fire Safety Assessment: A--An alcohol-based skin anteseptic being used preoperatively., C--Open oxygen or nitrous oxide is being used., D--An ESU, laser, or fiber-optic light is being used. 12:29:26 Physical assessment completed. ASA score P 2 - A patient with mild systemic disease as per Alberto Simmons MD. 12:29:32 Sedation plan: IV Moderate Sedation Medication:Versed, Fentanyl 12:30:25 Versed 1 mg I.V. was administered by Cindy Richmond RN; for sedation; 12:30:30 Fentanyl 50 mcg I.V. was administered by Cindy Richmond RN; for sedation; 12:33:01 Procedure started. 12:33:03 Local anesthetic to right femoral artery with Lidocaine 2% by Alberto Simmons MD.INITIAL ACCESS ONLY 12:33:45 A 5 Fr sheath was inserted into the Right Femoral artery 12:34:54 A MULTIPACK JL 4.0 5Fr catheter was advanced over the wire and used for Procedure. 12:35:05 Versed 1 mg I.V. was administered by Cindy Richmond RN; for sedation; 12:35:09 Fentanyl 50 mcg I.V. was administered by Cindy Richmond RN; for sedation; 12:35:50 LCA angiography performed. 12:36:44 Catheter exchanged over wire. 12:37:00 A MULTIPACK 3DRC 5Fr catheter was advanced over the wire and used for Procedure. 12:37:09 RCA angiography performed. 12:38:09 SHEATH 6FR [place] (OIB957) opened to sterile field. 12:38:18 [place] Verrata Plus pressure wire (27072I) opened to sterile field. 12:38:19 INFLATOR Merit BasixCompak (MS5145) opened to sterile field. 12:38:24 Catheter removed. 12:38:33 Sheath upsized to a 6 Fr Short. 12:38:59 GUIDE 6FR XBLAD 3.5 catheter ([id number]) opened to sterile field. 12:40:02 A DIAGNOSTIC 3DRC 5Fr catheter ([id number]) was advanced over the wire and used for Procedure. 12:40:14 6 Fr XBLAD 3.5 guide catheter was inserted over the wire 12:41:16 FFR/IFR wire advanced. 12:41:55 Wire advanced across lesion. 12:43:34 Wire advanced across lesion. 12:44:32 PLAD lesion measured at 0.95 with IFR 12:46:04 [place] IVUS Catheter (61634G) opened to sterile field. 12:46:10 IVUS catheter advanced over wire. 12:46:11 IVUS pass to LAD lesion performed. 12:47:57 Heparin Bolus 4000 units I.V. was administered by Cindy Richmond RN; for anticoagulation; verified with dr simmons 12:50:24 IVUS catheter removed over wire. 12:51:41 Pre PCI Site: [place] pLAD has 82% stenosis. 12:51:59 Inflate balloon Inflation number: 1 A NC EUPHORA 3.0 x 15 balloon ([id number]) was prepped and advanced across the Prox LAD 82, then inflated to 21 WILLIAMS for 0:10 (min:sec) . 12:52:30 Inflation number: 2 The NC EUPHORA 3.0 x 15 balloon ([id number]) was reinflated across the Prox LAD , to 21 WILLIAMS for 0:10 (min:sec) . 12:52:49 Inflation number: 3 The NC EUPHORA 3.0 x 15 balloon ([id number]) was reinflated across the Prox LAD , to 23 WILLIAMS for 0:10 (min:sec) . 12:52:58 Balloon removed over the wire. 12:53:15 Post PCI Site: [place] pLAD has 0% stenosis. 12:53:20 Balloon removed over the wire. 12:53:21 Wire removed. 12:53:22 Guide catheter removed. 12:53:37 EXOSEAL 6Fr (EX600) opened to sterile field. 12:54:29 Sheath removed intact; hemostasis achieved with Exoseal to the Right Femoral artery. 12:54:30 Procedure ended.(Physican Out) 12:56:40 Fluoroscopy time 05.20 minutes. 12:56:45 Flurop Dose total: 1137 12:56:45 Fluoroscopy dose: 1137 mGy 12:56:58 Contrast amount:Isovue 300 76ml. 12:57:00 Sharps counted by scrub and verified by R.N. 12:57:10 Insertion/operative site no bleeding no hematoma. 12:57:13 Post-op/insertion site Right Femoral artery dressed using a 4 x 4 and Tegaderm. 12:57:17 Post right femoral artery:stable, soft, clean and dry 12:57:20 Post Procedure Pulses reassessed and unchanged 12:57:42 Post-procedure physical assessment completed. ASA score P 2 - A patient with mild systemic disease as per Alberto Simmons MD. 12:57:50 Post procedure rhythm: unchanged. 12:57:53 Estimated blood loss: 10 ml 12:57:55 Post procedure instruction explained to patient.Patient verbalizes understanding. 12:57:55 Patient needs reinforcement of post procedure teaching. 13:01:19 Procedure type changed to Cath procedure, Diagnostic procedure, LHC, Coronaries only, FFR/IVUS, FFR Initial, Intra-Coronary IVUS Initial, Sedation Charges, Moderate Sedation up to 15 minutes, PCI procedure, PTCA, PTCA Initial 13:02:03 Procedure and supply charges have been captured, reviewed, submitted and are correct. 13:02:06 Procedure Complication : No complications 13:02:08 Vital chart was stopped 13:02:09 See physician's report for complete and final results. 13:02:11 Report given to PCU. 13:02:14 Patient transfered to PCU with Stretcher. 13:02:16 Procedure ended. 13:02:16 Full Disclosure recording stopped 13:02:32 End room use (Document Last) Intervention Summary Intervention Notes Time ActionType Lesion and Equipment Action# Pressure Duration Attributes Used 12:51:59 Inflate Prox LAD NC EUPHORA 1 21 00:10 balloon 3.0 x 15 balloon ([id number]) 12:52:30 Reinflate Prox LAD NC EUPHORA 2 21 00:10 balloon 3.0 x 15 balloon ([id number]) 12:52:49 Reinflate Prox LAD NC EUPHORA 3 23 00:10 balloon 3.0 x 15 balloon ([id number]) Device Usage Item Name Manufacture Quantity Catalog Hospital Part Current Mini mal Lot# / Number Charge Number Stock Stock Serial# Code ACIST Acist 1 08107 940382 979397 555377 20 Syringe Medical (78313) Systems Inc Bag Decanter Microtek 1 2001S 974334 12128 922014 5 (2001S) Medical Inc. Medline Cath Medline 1 [id number] 962825 38579 123477 5 Pack ([id number]) ACIST Hand Acist 1 64935 210065 744655 369508 5 Control Medical (82803) Systems Inc ACIST Acist 1 93751 772164 725077 339234 5 Manifold Medical (67303) Systems Inc Tegaderm 4 x 3M 1 1626W 310367 178691 387075 5 4 (1626W) DIAGNOSTIC Cardinal 1 ZN4938 931130 86565 643993 30 Multipack Health 5Fr catheter set (VS1971) SHEATH 5FR Terumo 1 BWB272 113813 655863 831752 5 [place] (AXP237) DIAGNOSTIC St Catracho 1 519447 585675 738924 834547 30 WIRE .035 260cm J wire (511105) MULTIPACK JL Cardinal 1 567564 5 4.0 5Fr Health catheter MULTIPACK Cardinal 1 451600 5 3DRC 5Fr Health catheter SHEATH 6FR Terumo 1 LAA515 556711 492697 246711 40 [place] (GAP306) [place] 1 62767L 881945 257584356 885280 5 Verrata Plus pressure wire (76765W) INFLATOR Merit 1 AT5385 311843 215769 149854 15 VacationFutures Medical BasixCompak (GU2349) GUIDE 6FR Cardinal 1 [id number] 596669 426322 352175 10 XBLAD 3.5 Health catheter ([id number]) DIAGNOSTIC Cardinal 1 234146Q 360856 402645 381544 9 3DRC 5Fr Health catheter (565572I) [place] 1 51101S 107970 807459 422045 8 [place] IVUS Catheter (64218R) [place] EUPHORA Medtronic 1 [id number] 941202 414759 939324 1 [id number] 3.0 x 15 balloon ([id number]) EXOSEAL 6Fr Cardinal 1 EX600 251947 975588 747419 10 (EX600) Health Signature Audit Vancleave Stage Time Signature Unsigned Intra-Procedure 07/27/2018 Felice Chavez 1:04:31 PM RT(R) Signatures Monitor : Felice Chavez RT Signature : Date : Time : [address] [address]
[~2018-07-25 13:25] MED LIST changes: +COUMADIN7.5 MG PO; +LOVENOX INJ100 MG/ML SC; +TOPROL XL50 MG PO
--- NOTE | 2018-07-25 13:55 | NUR ---
PT STATES 3/10 CHEST PAIN "OVER LEFT SIDE OF CHEST THAT RADIATES TO LEFT ARM." PT REPORTS "THAT IT FEELS LIKE A PRESSURE." BEFORE FIRST SL NITRO.
--- NOTE | 2018-07-25 14:01 | NUR ---
PT STATES CARDIAC PAIN 1/10 LEFT SIDE OF CHEST FOLLOWING FIRST SL NITRO. VS 125/80, PT GIVEN SECOND DOSE SL NITRO 0.4MG.
--- NOTE | 2018-07-25 14:02 | NUR ---
PT STATES, "CHEST PAIN HAS EASED UP, IT IS NOW 0/10 NUMERIC SCALE."
[2018-07-25 14:09] LABS: BASOPHILS 0.8 % (0-2); EOSINOPHILS 6.8 % (0-7); HEMATOCRIT 42.4 % (42.0-54.0); HEMOGLOBIN 14.4 g/dL (13.5-17.5); IMMATURE GRANULOCYTES 0.2 % (0-5); LYMPHOCYTES 35.2 % (15-50); MCH 29.9 pg (26.0-34.0); MCV 88.1 fL (80.0-100.0); MONOCYTES 7.2 % (2-11); NEUTROPHILS 49.8 % (40-80); PLATELET COUNT 236 10x3/uL (130-400); RBC 4.81 10x6/uL (4.20-6.10); RDW 13.7 % (11.5-14.5); WBC 6.4 10x3/uL (4.8-10.8)
[2018-07-25 14:18] LABS: INR 2.87 (0.85-1.17); PROTIME 29.3 SECONDS (11.6-15.0)
[2018-07-25 14:19] LABS: APTT 48.2 SECONDS (22.8-39.4)
[2018-07-25 14:25] LABS: ALBUMIN 3.7 g/dL (3.4-5.0); ALKALINE PHOSPHATASE 151 U/L (46-116); ALT (SGPT) 31 U/L (10-68); CALC OSMOLALITY 281 mosm/kg (275-300); CALCIUM 8.8 mg/dL (8.5-10.1); CARBON DIOXIDE 29.6 mmol/L (21.0-32.0); CHLORIDE - SERUM 103 mmol/L (98-107); CREATININE - SERUM 1.1 mg/dL (0.6-1.3); GLUCOSE 134 mg/dL (74-106); POTASSIUM - SERUM 4.4 mmol/L (3.5-5.1); SODIUM 139 mmol/L (136-145); UREA NITROGEN 18 mg/dL (7-18); eGFR NON AFRICAN AMERICAN 73 mL/min (90-120)
[2018-07-25 14:35] LABS: CKMB 0.7 U/L (0.0-3.6); CREATINE KINASE 100 UL (21-232); MAGNESIUM - SERUM 1.9 mg/dL (1.8-2.4); TROPONIN-I < 0.017 ng/mL (0.000-0.060)
--- NOTE | 2018-07-25 16:30 | NUR ---
[id number] REPORT FROM KRISTY IN THE ED.
--- NOTE | 2018-07-25 16:45 | NUR ---
RECEIVED VIA WHEELCHIAR TO ROOM. PLACED ON NASAL CANNULA AT 2L. PLACED ON HEART MONITOR. RIGHT HAND PIV SEEN INFUSING AT 50 CC/HR. WILL ADMIT.
[2018-07-25] MEDS ORDERED: COUMADIN6 MG PO (17:06)
[2018-07-25] MEDS ORDERED: COUMADIN5 MG PO (17:07)
--- NOTE | 2018-07-25 19:21 | NUR ---
RESUMING PATIENT CARE. PATIENT IS ALERT AND ORIENTED. RESTING COMFORTABLY IN BED. RES[IRATIONS ARE EVEN AND UNLABORED. NO C/O PAIN. CALLL IGHT WITHIN REACH. WILL CPOC.
[2018-07-26] VITALS: BP 96/60
[2018-07-26 04:00] VITALS: BP 131/81
[2018-07-26 04:15] LABS: BASOPHILS 0.8 % (0-2); HEMOGLOBIN 13.8 g/dL (13.5-17.5); IMMATURE GRANULOCYTES 0.2 % (0-5); MCH 30.1 pg (26.0-34.0); MCHC 33.7 g/dL (31.0-37.0); MCV 89.3 fL (80.0-100.0); MEAN PLATELET VOLUME 9.3 fL (7.4-10.4); MONOCYTES 10.1 % (2-11); NEUTROPHILS 39.9 % (40-80); PLATELET COUNT 231 10x3/uL (130-400); RBC 4.59 10x6/uL (4.20-6.10); RDW 13.7 % (11.5-14.5); WBC 6.5 10x3/uL (4.8-10.8)
[2018-07-26 04:43] LABS: CALC OSMOLALITY 279 mosm/kg (275-300); CALCIUM 8.3 mg/dL (8.5-10.1); CHLORIDE - SERUM 103 mmol/L (98-107); CKMB 0.7 U/L (0.0-3.6); CREATINE KINASE 87 UL (21-232); GLUCOSE 98 mg/dL (74-106); PHOSPHOROUS 3.8 mg/dL (2.5-4.9); POTASSIUM - SERUM 4.1 mmol/L (3.5-5.1); PRO BNP 87 pg/mL (0-125); SODIUM 140 mmol/L (136-145); UREA NITROGEN 16 mg/dL (7-18); eGFR NON AFRICAN AMERICAN 82 mL/min (90-120)
[2018-07-26 04:48] LABS: TROPONIN-I < 0.017 ng/mL (0.000-0.060)
--- NOTE | 2018-07-26 07:24 | NUR ---
ROUNDING DONE WITH PATIENT AROUSING EASILY WHEN WALKING INTO ROOM. ASLEEP IN CHAIR. ON 2L PER NC. ON HEART MONITOR SHOWING SR, HR 54. RIGHT FA PIV SEEN WITH NS INFUSING AT 50 CC/HR. ON EP, K+ IS 4.1. DENIES ANY NEEDS AT THIS TIME.
[2018-07-26 08:19] VITALS: BP 142/85
[2018-07-26 12:28] VITALS: BP 112/78
--- NOTE | 2018-07-26 15:03 | CN ---
PATIENT NAME:IKER LOWE MEDICAL RECORD: [id number] : 64 LOCATION:D. D.2117 ADMIT DATE: 07/26/18 ACCOUNT: [id number] CONSULTING PHYSICIAN: JACQUELINE ALEMAN MD REFERRING PHYSICIAN: ROSELIA QUEVEDO MD DATE OF CONSULTATION: 07/26/2018 HISTORY OF PRESENT ILLNESS: A 58-year-old gentleman with a known history of coronary artery disease, status post aortic valve replacement as well as most recently intervention to restenotic LAD with cutting balloon. Symptomology never improved after most recent intervention, continued to have symptomatology. Some of the most recent symptoms have been a bit atypical, although does have chest tightness and pressure, certainly elastic recoil could be an issue at this point. We are asked to see him concerning his cardiovascular status. PAST MEDICAL HISTORY: Includes: 1. History of hypertension. 2. Hyperlipidemia. 3. Aortic valve disease status post thyroid replacement. MEDICATIONS: Plavix 75 every day, Coumadin per scale, Toprol 75 b.i.d., Neurontin 100 t.i.d., Cymbalta 60 q.h.s., Xanax 0.5 mg t.i.d., Farina 10/325 t.i.d. ALLERGIES: CONTRAST, SULFA. SOCIAL HISTORY: Nonsmoker, nondrinker. Easily takes care of all his ADLs. He is quite active, although has not been able to increase usual activities since most recent intervention. REVIEW OF SYSTEMS: The patient reports easy bruising but reports no swollen glands. The patient reports no fever, no night sweats, no significant weight gain, no significant weight loss. No significant exercise tolerance. The patient reports no dry eyes, no irritation, no vision change. Patient reports no difficulty hearing and no ear pain. Patient reports no frequent nose bleeds or nose and sinus problems. Patient reports on arm pain on exertion. No shortness of breath while lying down. No history of heart murmur. Patient reports no cough, no wheezing or coughing up blood. Patient reports no abdominal pain, no vomiting. Normal appetite. No diarrhea and not vomiting blood. No nausea and no constipation. Patient reports no incontinence. No difficulty urinating. No hematuria. No increased frequency. Patient reports no muscle aches. No weakness, no arthralgias, no back pain. No swelling of the extremities. Patient reports no abnormal mole, no jaundice, no rashes. Reports no loss of consciousness. No weakness and no numbness. No seizures, dizziness, or headaches. The patient reports no depression, no sleep disturbance, feeling safe in a relationship and no alcohol abuse. Patient reports on fatigue. Reports no runny nose or sinus pressure. No itching, no hives, and no frequent sneezing. PHYSICAL EXAMINATION: GENERAL: A middle-aged gentleman in no acute distress. VITAL SIGNS: Blood pressure 142/85, pulse 55 and regular. HEENT: Normocephalic and atraumatic. NECK: No bruits noted. HEART: Regular, crisp aortic closure sound. CONSULT REPORT [id number] IKER LOWE LUNGS: Good air excursion. ABDOMEN: Soft and nontender. Pulses 2+. No edema. EKG shows no acute changes. IMPRESSION: Continued angina. We will hold Coumadin given Lovenox at this point, add Norvasc. Anginal symptomology, may have to consider diagnostic angiography for elastic recoil. TRANSINT:[id number] Voice Confirmation ID: [id number] DOCUMENT ID: [id number] JACQUELINE ALEMAN MD at 1503 CC: [id number] DICTATION DATE: 07/26/18835 STAFF DEVELOPMENT COORDINATOR RN: 07/26/18 09 ADM IN [place] [id number] [place] [id number]
--- NOTE | 2018-07-26 16:01 | NUR ---
DENIES NEEDS AT THIS TIME, AWAITING PAIN MEDICAITON. THIS IS NOT DUE UNTIL 1719.
[2018-07-26 16:14] VITALS: BP 120/70
[2018-07-26 20:00] VITALS: BP 111/66
[2018-07-27] VITALS (41 sets, daily range): BP systolic 100–148; BP diastolic 57–101
[2018-07-27 06:35] LABS: BASOPHILS 0.6 % (0-2); EOSINOPHILS 5.8 % (0-7); HEMATOCRIT 40.9 % (42.0-54.0); HEMOGLOBIN 13.6 g/dL (13.5-17.5); IMMATURE GRANULOCYTES 0.2 % (0-5); LYMPHOCYTES 36.8 % (15-50); MCH 29.4 pg (26.0-34.0); MCHC 33.3 g/dL (31.0-37.0); MCV 88.3 fL (80.0-100.0); MEAN PLATELET VOLUME 9.5 fL (7.4-10.4); MONOCYTES 7.7 % (2-11); NEUTROPHILS 48.9 % (40-80); PLATELET COUNT 206 10x3/uL (130-400); RBC 4.63 10x6/uL (4.20-6.10); RDW 13.7 % (11.5-14.5); WBC 6.4 10x3/uL (4.8-10.8)
[2018-07-27 06:55] LABS: PROTIME 23.7 SECONDS (11.6-15.0)
[2018-07-27 06:57] LABS: INR 2.2 (0.85-1.17)
[2018-07-27 07:24] LABS: ANION GAP 11.1 mmol/L (8-16); CARBON DIOXIDE 31.2 mmol/L (21.0-32.0); CREATININE - SERUM 1.1 mg/dL (0.6-1.3); POTASSIUM - SERUM 4.3 mmol/L (3.5-5.1)
--- NOTE | 2018-07-27 07:25 | NUR ---
ROUNDING DONE WITH PATIENT BEING NPO FOR POSSIBLE PROCEDURE TODAY. ON HEART MONITOR SHOWING SB, HR 57. ON 2L PER NC, THIS IS A HOME DOSE. RIGHT FA PIV SEEN WITH NS INFUSING AT 50 CC/HR. I SPOKE WITH JENNIFER APPLICATION PENETRATION TESTER TO SEE IF PATIENT IS DOWN FOR ANYTHING. HE IS GOING TO LOOK AND LET US KNOW, PATIENT IS ALLERGIC TO IV AND ORAL CONTRAST.
--- NOTE | 2018-07-27 07:49 | NUR ---
ROUNDING DONE BY ME UNDER PRVIOUS NIGHT NURSE NAME. ROUNDING STACIA WITH PATIENT BEING NPO FOR POSSIBLE PROCEDURE TODAY. ON HEART MONITOR SHOWING SB, HR 57. ON 2L PER NC, THIS IS A HOME DOSE. RIGHT FA PIV SEEN WITH NS INFUSING AT 50 CC/HR. I SPOKE WITH JENNIFER ELIGIBILITY AND OCCUPANCY INTERVIEWER TO SEE IF PATIENT WAS DOWN FOR ANYHING. HE IS GOING TO LOOK AND LET US KNOW. PATIENT IS ALLERGIC TO IV AND ORAL CONTRAST. 0751-DR GARG TO CALL WITH NEW ORDERS. THIS INFORMATIN IS RELAYED TO PATIENT AND .
--- NOTE | 2018-07-27 08:18 | NUR ---
PREDNISONE 40 MG GIVEN WITH SIP OF WATER ORDERED. BLOOD TRANSFUSION PERMIT SIGNED.
--- NOTE | 2018-07-27 08:56 | NUR ---
DR GARG HERE WITH NEW ORDERS TO D/C LOVENOX AND GIVE ASA AND PLAVIX. HE IS GOING TO LOOK AT THE FILMS TO SEE IF ABLE TO DO PROCEDEURE.
--- NOTE | 2018-07-27 09:35 | NUR ---
0932-ORAL VIT K GIVEN ORDERED. 1/2 UNITS OF FFP STARTED.
--- NOTE | 2018-07-27 10:12 | NUR ---
0955-2 FFP DONE. NO SIGNS OF REACTION. 2/2 STATED AT 10:11. WILL MONITOR.
--- NOTE | 2018-07-27 10:34 | NUR ---
1030-2/2 FFP TRANSFUSED WITH NO PROBLEMS.
--- NOTE | 2018-07-27 12:05 | NUR ---
TO GLASSWARE MAKER DEMONSTRATOR VIA BED.
--- NOTE | 2018-07-27 13:19 | NUR ---
RELULI FROM PATENT DRAFTER RECOVERY, RIGHT GROIN DRESSING IS C/D/I. PPP AND STRONG. TO LAY FLAT X 4 HOURS. AT BEDSIDE, WILL GIVE 10 MG COUMADIN WHEN MORE AWAKE.
--- NOTE | 2018-07-27 13:47 | NUR ---
STAT CT ORDERED AND RADIOLOGY CALLED PER JENNIFER FROM DR GARG. FEMSTOP IS ON PER JENNIFER FROM TEACHER TUTOR. 1357-B/P 75/37. RAPID RESPONSE CALLED. 1358-JENNIFER AND TEAM FROM RR HERE. TO CT VIA BED AND PORTABLE OXYGEN. 1433-TO CVICU RM 6 PER ORDERS.
--- NOTE | 2018-07-27 13:48 | NUR ---
COMPLAINTS OF RIGHT ABD PAIN, DISTENDED. CALL PLACED TO JENNIFER IN CLASSIFIER. STAT H/H DONE. PAGE INTO DR GARG. STAT CT ABD IS ORDERED PER DR GARG. ATROPINE IS HERE TO BE GIVEN IF NEEDED.
[2018-07-27 14:09] LABS: BASOPHILS 0.5 % (0-2); EOSINOPHILS 0.8 % (0-7); HEMATOCRIT 34.6 % (42.0-54.0); HEMOGLOBIN 11.6 g/dL (13.5-17.5); IMMATURE GRANULOCYTES 0.3 % (0-5); LYMPHOCYTES 14.1 % (15-50); MCH 29.4 pg (26.0-34.0); MCHC 33.5 g/dL (31.0-37.0); MCV 87.8 fL (80.0-100.0); MEAN PLATELET VOLUME 9.1 fL (7.4-10.4); MONOCYTES 1.7 % (2-11); NEUTROPHILS 82.6 % (40-80); PLATELET COUNT 230 10x3/uL (130-400); RBC 3.94 10x6/uL (4.20-6.10); RDW 13.6 % (11.5-14.5); WBC 6.4 10x3/uL (4.8-10.8)
--- NOTE | 2018-07-27 14:47 | NUR ---
PT ARRIVED TO CVICU. PLACED ON BEDSIDE MONITORING. PT AWAKE AND CONVERSANT. ANSWERS APPROPRIATELY. ACCOMPANIED BY ICU NURSES, PRIMARY NURSE FROM FLOOR, AND . PT IS SUPINE WITH FEMSTOP AT RIGHT GROIN SITE. WAS ABLE TO DOPPLER A POSTERIOR TIBIAL PULSE, ADDITIONAL PRESSURE APPLIED WITH FEMSTOP TO OCCLUDE PULSE BY OPENER TENDER STAFF. WILL RETURN IN 30 MINUTES TO RECHECK SITE. ABDOMEN DISTENDED. BOWEL SOUNDS DISTANT. LARGE PURPLE BRUISING NOTED AT RLQ. PT STATES FROM LOVENOX INJECTIONS. S1,S2 NOTED WITH AUDIBLE CLICKS AT MITRAL. PIV TO RIGHT HAND, SALINE LOCKED.
--- NOTE | 2018-07-27 15:55 | NUR ---
CALL MADE TO DR GARG AT REQUEST OF MANDEEP FROM DELINQUENT TAX COLLECTOR AFTER HE CAME OVER TO CHECK ON PATIENT. LET DR GARG KNOW THAT PAIN WAS IN A LOT OF PAIN AND HAD BEEN GIVEN NORCO PO. NEW ORDER RECEIVED FOR MORPHINE. TO CHECK H&H AFTER FFP INFUSED. WILL COME TO SEE PATIENT SHORTLY. FEMSTOP TO REMAIN OCCLUSIVE AT THIS TIME.
--- NOTE | 2018-07-27 16:30 | NUR ---
DR QUEVEDO BY TO CHECK ON PATIENT.
--- NOTE | 2018-07-27 16:32 | NUR ---
PT RESPONDS "A LITTLE" WHEN ASKED IF PAIN STARTING TO EASE UP. OFFERED TO GRILL A PORK CHOP. MAY BE EFFECTS OF MEDICATION, IS STARTING TO DOZE. SIDE RAILS X2 AND BED LOW. AT BEDSIDE. CALL LIGHT IN REACH.
[2018-07-27 16:36] LABS: HEMATOCRIT 34.1 % (42.0-54.0); HEMOGLOBIN 11.3 g/dL (13.5-17.5); MCH 29.4 pg (26.0-34.0); MCHC 33.1 g/dL (31.0-37.0); MCV 88.6 fL (80.0-100.0); MEAN PLATELET VOLUME 9.4 fL (7.4-10.4); RBC 3.85 10x6/uL (4.20-6.10); RDW 13.7 % (11.5-14.5); WBC 6.9 10x3/uL (4.8-10.8)
--- NOTE | 2018-07-27 17:18 | OP ---
PATIENT NAME: IKER LOWE MEDICAL RECORD: [id number] :64 LOCATION:[id number] ADMISSION DATE:07/26/18 SURGEON: ISIAH GARG MD DATE OF OPERATION: 07/27/2018 PROCEDURES: 1. High pressure PTCA, LAD. 2. Intravascular ultrasound. 3. IFR. 4. Left heart catheterization. 5. Selective coronary angiography. 6. Left ventriculogram. INDICATION: Angina and coronary artery disease. PROCEDURE IN DETAIL: After informed consent was obtained and after a detailed description of risks, benefits as well as alternative therapies, the patient elected to proceed with angiogram and angioplasty. The right femoral area was prepped and draped in normal sterile fashion. Right femoral artery was cannulated via modified Seldinger technique with placement of 6-Azeri sheath. All catheters exchanged through this sheath. FINDINGS: Left ventriculogram was not performed secondary to prosthetic aortic valve. SELECTIVE CORONARY ANGIOGRAPHY: 1. Left main is with no significant angiographic disease. 2. Left anterior descending has previously placed stents. There appears to be 80% in-stent restenosis angiographically. IFR was not abnormal at 0.94; however, intravascular ultrasound revealed an 82% in-stent restenosis. Most of this was poor apposition as opposed to fibrous scar tissue. 3. Left circumflex has mild irregularities, but no flow-limiting stenosis. 4. Right coronary has mild irregularities, but no flow-limiting stenosis. PTCA OF THE LAD: We used the high pressure PTCA balloon at 3.0 taken at 23 atmospheres. Angiographically, this is much improved at 0% residual stenosis. OVERALL IMPRESSION: Successful PTCA for in-stent restenosis and poor apposition of the previously placed stents going from 80% stenosis, this is what appears to be 0% residual stenosis angiographically. TRANSINT:[id number] Voice Confirmation ID: [id number] DOCUMENT ID: [id number] ISIAH GARG MD at 1718 CC: [id number] DICTATION DATE: 07/27/18 1302 POCKETED SPRING MACHINE OPERATOR: 07/27/18 1337 ADM IN [id number] [place] [address]
--- NOTE | 2018-07-27 17:30 | NUR ---
SMALL AMOUNT PRESSURE RELEASE FROM FEMSTOP
--- NOTE | 2018-07-27 18:00 | NUR ---
DR GARG CAME BY TO CHECK ON PATIENT AGAIN. VSS. ADDITIONAL PRESSURE LET OUT FROM FEMSTOP
[2018-07-27 18:56] LABS: HEMATOCRIT 32.6 % (42.0-54.0); HEMOGLOBIN 10.9 g/dL (13.5-17.5)
--- NOTE | 2018-07-27 19:16 | NUR ---
PT H&H RESULTS BACK. PAGED DR GARG TO ALERT OF DROP. AWAITING RETURN CALL.
[2018-07-27 19:25] LABS: INR 1.26 (0.85-1.17); PROTIME 15.2 SECONDS (11.6-15.0)
--- NOTE | 2018-07-27 19:36 | NUR ---
PAGED ST MCLEAN
--- NOTE | 2018-07-27 19:52 | NUR ---
SPOKE WITH DR ALEMAN LET HIM KNOW OF DROP IN H&H. NEW ORDER RECEIVED TO KEEP FEMSTOP MMHG BETWEEN PT SBP AND DBP. PT HAS PALPABLE PULSE NOTED. ASKED FOR CBC DRAW AT 9PM AND TO CALL HIM IF DROPS BELOW 9.5.
[2018-07-27 21:43] LABS: BASOPHILS 0.1 % (0-2); EOSINOPHILS 0 % (0-7); HEMATOCRIT 31.4 % (42.0-54.0); HEMOGLOBIN 10.5 g/dL (13.5-17.5); IMMATURE GRANULOCYTES 0.3 % (0-5); LYMPHOCYTES 5.4 % (15-50); MCH 29.7 pg (26.0-34.0); MCHC 33.4 g/dL (31.0-37.0); MCV 88.7 fL (80.0-100.0); MONOCYTES 1.9 % (2-11); NEUTROPHILS 92.3 % (40-80); PLATELET COUNT 214 10x3/uL (130-400); RBC 3.54 10x6/uL (4.20-6.10); RDW 13.8 % (11.5-14.5)
[2018-07-27 21:47] LABS: WBC 10.4 10x3/uL (4.8-10.8)
--- NOTE | 2018-07-27 22:20 | NUR ---
CBC RESULTS REC'D, HGB IS NOT LESS THAN 9.5 AT THIS TIME. 10MMHG DEFLATED FROM BULB. PEDAL PULSES PRESENT.
--- NOTE | 2018-07-27 23:00 | NUR ---
REASSESSMENT COMPLETE, NO NEW CHANGES AT THIS TIME. PT RESTING QUIETLY WITH LEGS STRAIGHT. 10MMHG DEFLATED FROM FEMSTOP BULB. PEDAL PULSES PRESENT. VSS, BP 135/75. DENIES NEEDS. CALL LIGHT AND BEDSIDE TABLE WITHIN PT REACH. CPOC.
--- NOTE | 2018-07-27 23:20 | NUR ---
10 MMHG DEFLATED FROM FEMSTOP BULB
--- NOTE | 2018-07-27 23:40 | NUR ---
10 MMHG DEFLATED FROM FEMSTOP BULB
[2018-07-28] VITALS (38 sets, daily range): BP systolic 95–138; BP diastolic 57–94; Ht 177.8 cm; Wt 104.1 kg
--- NOTE | 2018-07-28 | NUR ---
VSS, PT RESTING QUIETLY. 10MMHG DEFLATED FROM FEMSTOP PER POLICY. PEDAL PULSES PRESENT. BRUISING NOTED TO RIGHT LOWER ABD AND GROIN. FRESH BEVERAGE TO BEDSIDE PER REQUEST. DENIES FURTHER NEEDS AT THIS TIME. CALL LIGHT AND BEDSIDE TABLE WITHIN PT REACH. CPOC.
--- NOTE | 2018-07-28 00:20 | NUR ---
10 MMHG DEFLATED FROM FEMSTOP BULB, PEDAL PULSES PRESENT. VSS.
--- NOTE | 2018-07-28 00:40 | NUR ---
10 MMHG DEFLATED FROM FEMSTOP BULB. PEDAL PULSES PRESENT. VSS.
--- NOTE | 2018-07-28 01:00 | NUR ---
10 MMHG DEFLATED FROM FEMSTOP BULB, PEDAL PULSES PRESENT, VSS.
--- NOTE | 2018-07-28 01:20 | NUR ---
10 MMHG DEFLATED FROM FEMSTOP BULB, PEDAL PULSES PRESENT, VSS.
--- NOTE | 2018-07-28 01:40 | NUR ---
FEMSTOP COMPLETELY DEFLATED. PEDAL PULSES PRESENT. VSS, BRUSING NOTED TO SITE AND RIGHT LOWER ABD. DRSG APPLIED PER POLICY. ABD REMAINS FIRM, GROIN SOFT.
[2018-07-28 02:36] LABS: BASOPHILS 0.1 % (0-2); EOSINOPHILS 0 % (0-7); HEMATOCRIT 30.8 % (42.0-54.0); HEMOGLOBIN 10.2 g/dL (13.5-17.5); IMMATURE GRANULOCYTES 0.4 % (0-5); LYMPHOCYTES 5.9 % (15-50); MCH 29.4 pg (26.0-34.0); MCHC 33.1 g/dL (31.0-37.0); MCV 88.8 fL (80.0-100.0); MEAN PLATELET VOLUME 8.9 fL (7.4-10.4); MONOCYTES 4.3 % (2-11); NEUTROPHILS 89.3 % (40-80); PLATELET COUNT 254 10x3/uL (130-400); RBC 3.47 10x6/uL (4.20-6.10); RDW 13.9 % (11.5-14.5); WBC 12.9 10x3/uL (4.8-10.8)
--- NOTE | 2018-07-28 03:00 | NUR ---
REASSESSMENT COMPLETE, SEE FLOWSHEET. RT GROIN WITH DRSG INTACT. BRUISING NOTED TO LT LOWER ABD. ABD DISTENTION AND TENDERNESS STILL PRESENT. PEDAL PULSES PRESENT. VSS. CALL LIGHT WITHIN PT REACH. CPOC.
--- NOTE | 2018-07-28 05:00 | NUR ---
AT BEDSIDE, UPDATE PROVIDED AND QUESTIONS ANSWERED.
[2018-07-28 06:53] LABS: BASOPHILS 0.1 % (0-2); EOSINOPHILS 0 % (0-7); HEMATOCRIT 30.6 % (42.0-54.0); HEMOGLOBIN 10.1 g/dL (13.5-17.5); IMMATURE GRANULOCYTES 0.3 % (0-5); LYMPHOCYTES 5.4 % (15-50); MCH 29.5 pg (26.0-34.0); MCV 89.5 fL (80.0-100.0); MEAN PLATELET VOLUME 9.2 fL (7.4-10.4); MONOCYTES 6.5 % (2-11); NEUTROPHILS 87.7 % (40-80); PLATELET COUNT 275 10x3/uL (130-400); RBC 3.42 10x6/uL (4.20-6.10); RDW 14.1 % (11.5-14.5); WBC 17.2 10x3/uL (4.8-10.8)
[2018-07-28 07:05] LABS: ANION GAP 12.5 mmol/L (8-16); CALCIUM 8.2 mg/dL (8.5-10.1); CARBON DIOXIDE 29.6 mmol/L (21.0-32.0)
[2018-07-28 07:06] LABS: CREATININE - SERUM 1.8 mg/dL (0.6-1.3); POTASSIUM - SERUM 5.1 mmol/L (3.5-5.1)
--- NOTE | 2018-07-28 09:04 | NUR ---
0700 PT IN BED. AAO. O2 3L NC. PERIPHERAL IV TO BILA HANDS SALINE LOCKED. R GROIN CATH SITE SOFT PULSES PALPABLE. BRUISING TO ABD. CALL LIGHT WITHIN REACH. NO NEEDS NOTED. [address] NEAL TO GIVE PLAVIX. RESTART COUMADIN 4 MG. D/C ASA. HOLD B/P MEDS. MEDS GIVEN AND ATE 100% OF BREAKFAST. GROIN CONTINUES TO BE SOFT.
--- NOTE | 2018-07-28 10:28 | NUR ---
1028 BLADDER SCANNED PT [address] QUEVEDO NOTIFIED. NO NEW ORDERS.
--- NOTE | 2018-07-28 13:54 | NUR ---
1300 ATE 100% OF LUNCH
--- NOTE | 2018-07-28 14:25 | NUR ---
PT C/O CHEST PAIN. EKG DONE AND ST MC[facility] NOTIFIED AND REVIEWED EKG. EKG NORMAL AND NO NEW ORDERS.
--- NOTE | 2018-07-28 17:18 | NUR ---
CHG BATH GIVEN BY . PATIENT DENIES ALL NEEDS.
--- NOTE | 2018-07-28 19:44 | MORECARE ---
CASE MANAGEMENT DISCHARGE SUMMARY PATIENT: IKER LOWE UNIT: [id number] ADM DATE: 07/26/18 AGE: 58 : 64 SEX: M ROOM/BED: [facility] AUTHOR: GIANFRANCO MCCAULEY PHYSICIAN: REFERRING PHYSICIAN: ROSELIA QUEVEDO MD DATE OF SERVICE: 07/28/18 Discharge Plan Patient Name: IKER LOWE [facility] [facility] 1960 Planned Disposition: Home Anticipated Discharge Date: Discharge Date: Expected LOS: Initial Reviewer: [email or web address] Initial Review Date: 07/28/2018 Generated: 07/28/18 8:43 pm Patient Name: IKER LOWE Page [id number] at 1944 All edits/amendments must be made on the electronic document DICTATION DATE: 07/28/181942 DURABLE MEDICAL EQUIPMENT REPAIRER: HINA 07/28/181942 RPT#: [id number] DC DATE: STATUS: ADM IN [facility] [address] [place] [address] END OF REPORT
--- NOTE | 2018-07-28 19:56 | MORECARE ---
CASE MANAGEMENT DISCHARGE SUMMARY PATIENT: IKER LOWE UNIT: [id number] ADM DATE: 07/26/18 AGE: 58 : 64 SEX: M ROOM/BED: D[facility] AUTHOR: GIANFRANCO MCCAULEY PHYSICIAN: REFERRING PHYSICIAN: ROSELIA QUEVEDO MD DATE OF SERVICE: 07/28/18 Discharge Plan Patient Name: IKER LOWE [facility] [facility] 1960 Planned Disposition: Home Anticipated Discharge Date: Discharge Date: Expected LOS: Initial Reviewer: [email or web address] Initial Review Date: 07/28/2018 Generated: 07/28/18 8:56 pm DCPIA - Discharge Planning Initial Assessment Updated by [email or web address]: Cindy Steel on 07/28/18 7:50 pm * Is the patient Alert and Oriented? Yes * How many steps to enter\exit or inside your home? * PCP MADELEINE JARA - [place] * Pharmacy [facility] * Preadmission Environment Home with Family * ADLs Independent * Other Equipment 02 HOME/ PORTABLE, CPAP, NEBULIZER * List name and contact numbers for known caregivers / representatives who currently or will assist patient after discharge: ANSELMO LOWE - SPOUSE- [phone] * Verbal permission to speak to the caregivers and representatives has been obtained from the patient. Yes * Community resources currently utilized None * Additional services required to return to the preadmission environment? No * Can the patient safely return to the preadmission environment? Yes * Has this patient been hospitalized within the prior 30 days at any hospital? Yes Last DP export: 07/28/18 6:43 p Patient Name: IKER LOWE Page 93941 at 1956 All edits/amendments must be made on the electronic document DICTATION DATE: 07/28/181954 ELECTRICAL PROSPECTING SUPERVISOR: HINA 07/28/181954 RPT#: [id number] DC DATE: STATUS: ADM IN [facility] [address] [place] [address] END OF REPORT
--- NOTE | 2018-07-28 20:03 | MORECARE ---
CASE MANAGEMENT DISCHARGE SUMMARY PATIENT: IKER LOWE UNIT: [id number] ADM DATE: 07/26/18 AGE: 58 : 64 SEX: M ROOM/BED: D[facility] AUTHOR: GARRICKDOC PHYSICIAN: REFERRING PHYSICIAN: ROSELIA QUEVEDO MD DATE OF SERVICE: 07/28/18 Discharge Plan Patient Name: IKER LOWE Facility: [facility]:[place] : 1960 Planned Disposition: Home Anticipated Discharge Date: Discharge Date: Expected LOS: Initial Reviewer: [email or web address] Initial Review Date: 07/28/2018 Generated: 07/28/18 9:02 pm Comments DCP- Discharge Planning Updated by [email or web address]: Cindy Steel on 07/28/18 6:[address] Patient Name: IKER LOWE Admission Status: ER Accout number: [id number] Admission Date: 07-26-2018 : 1960 Admission Diagnosis:ATHSCL HEART DISEASE OF [place] CORONARY ARTERY W/O ANG Attending: ROSELIA QUEVEDO Current LOS: 2 Anticipated DC Date: Planned Disposition: Home Primary Insurance: MEDICARE A & B Discharge Planning Comments: CM met with patient and spouse (Aracelis) at bedside after explaining CM role and obtaining verbal consent. Patient lives at home with his Aracelis and plans to return there upon discharge. Patient feels this would be a safe discharge. Patient states he has Home 02 and portable, CPAP, and nebulizer. CM discussed availability / needs of home health and medical equipment. Patient denies any discharge needs at this time. Patient states he will have his drive him home upon discharge. CM will continue to follow and assist as needed with discharge planning / needs. Linux System Admin: Cindy Steel DCPIA - Discharge Planning Initial Assessment Updated by [email or web address]: Cindy Steel on 07/28/18 7:50 pm * Is the patient Alert and Oriented? Yes * How many steps to enter\exit or inside your home? * PCP [facility]ARA - [place] * [facility] * Preadmission Environment Home with Family * ADLs Independent * Other Equipment 02 HOME/ PORTABLE, CPAP, NEBULIZER * List name and contact numbers for known caregivers / representatives who currently or will assist patient after discharge: ARACELIS LOWE - SPOUSE- [phone] * Verbal permission to speak to the caregivers and representatives has been obtained from the patient. Yes * Community resources currently utilized None * Additional services required to return to the preadmission environment? No * Can the patient safely return to the preadmission environment? Yes * Has this patient been hospitalized within the prior 30 days at any hospital? Yes Last DP export: 07/28/18 6:56 p Patient Name: IKER LOWE Page 73386 at 2003 All edits/amendments must be made on the electronic document DICTATION DATE: 07/28/182001 CHEMICAL PUMPER: HINA 07/28/182001 RPT#: [id number] DC DATE: STATUS: ADM IN [facility] [address] [place] [address] END OF REPORT
--- NOTE | 2018-07-28 20:30 | NUR ---
FAMILY AT BEDSIDE, UPDATE GIVEN, PT C/O ACHING PAIN IN ABDOMEN, PRN NORCO GIVEN, SEE MAR FOR FURTHER, VSS, WILL CONTINUE TO MONITOR
--- NOTE | 2018-07-28 22:00 | NUR ---
PT C/O ABDOMINAL ACHING PAIN, REQUESTING DILAUDID PAIN MED, INFORMED PT ABOUT WAITING FOR NORCO PAIN MED TO WORK BEFORE GIVING OTHER PAIN MEDS, PT AT BEDSIDE, PT AND VERBALIZE UNDERSTANDING, PT VSS, WILL CONTINUE TO MONITOR
--- NOTE | 2018-07-28 22:45 | NUR ---
PT CONTINUES TO C/O ABDOMINAL PAIN, REQUESTING PAIN MED DILAUDID, RATED PAIN LEVEL 10/10,
[2018-07-29] VITALS (24 sets, daily range): BP systolic 104–135; BP diastolic 50–93
--- NOTE | 2018-07-29 02:00 | NUR ---
PT CONFUSED TRYING TO GET OOB, QUICKLY REORIENTED AND PT AAOx4. REPOSITIONED PT IN BED, PT ACCIDENTLY REMOVED RIGHT HAND PIV, BLEEDING CONTROLLED WITH 4X4 GAUZE, COMPLETE LINEN CHANGE WIOTH PARTIAL BATH COMPLETED, PT VSS, DENIES NEEDS, WILL CONTINUE TO MONITOR
[2018-07-29 04:24] LABS: BASOPHILS 0.3 % (0-2); EOSINOPHILS 1.1 % (0-7); HEMATOCRIT 28.6 % (42.0-54.0); HEMOGLOBIN 9.2 g/dL (13.5-17.5); IMMATURE GRANULOCYTES 0.5 % (0-5); LYMPHOCYTES 17.5 % (15-50); MCHC 32.2 g/dL (31.0-37.0); MCV 90.2 fL (80.0-100.0); MEAN PLATELET VOLUME 9.2 fL (7.4-10.4); MONOCYTES 9.9 % (2-11); NEUTROPHILS 70.7 % (40-80); PLATELET COUNT 264 10x3/uL (130-400); RBC 3.17 10x6/uL (4.20-6.10); RDW 14.3 % (11.5-14.5); WBC 14.5 10x3/uL (4.8-10.8)
[2018-07-29 04:38] LABS: ANION GAP 9.7 mmol/L (8-16); CARBON DIOXIDE 31.7 mmol/L (21.0-32.0); CREATININE - SERUM 1.7 mg/dL (0.6-1.3); POTASSIUM - SERUM 4.4 mmol/L (3.5-5.1)
--- NOTE | 2018-07-29 06:27 | NUR ---
PT REFUSED BATH AT THIS TIME, PT STATED" MY WILL HELP HIM JUST LIKE YESTERDAY", PT RESTING COMFORTABLY IN BED, VSS, WILL CONTINUE TO MONITOR
--- NOTE | 2018-07-29 06:30 | NUR ---
DR.ST VINAY MENA R/T Hgb LEVEL PER ORDERS
--- NOTE | 2018-07-29 06:35 | NUR ---
DR.ST MCLEAN CALLED CVICU BACK, UPDATE GIVEN, NO NEW ORDERS RECEIVED
--- NOTE | 2018-07-29 07:30 | NUR ---
SHIFT ASSESSMENT COMPLETE. PT AWAKE AND CONVERSANT. RIGHT PEDAL PULSE VERIFIED BY DOPPLER. PT STATES PAIN IS NOT SEVERE THIS MORNING.
--- NOTE | 2018-07-29 10:00 | NUR ---
MORNING MEDICATIONS PROVIDED. HAS BEEN AT BEDSIDE. PT HAS HAD BREAKFAST.
--- NOTE | 2018-07-29 13:25 | PN ---
PATIENT:IKER LOWE MEDICAL RECORD: [id number] [facility] DATE: 07/26/18 PROGRESS NOTE DATE OF SERVICE: After the PTCA procedure, he returned to the room in stable condition; however, he developed groin pain and abdominal pain. CT scan confirmed that he had a retroperitoneal bleed. FemoStop was placed. Repeat 2 units of FFP were given. Hemoglobin went from 13 to 11. He was hemodynamically stable and was not hypotensive at all during this. He was not tachycardic with this. We transferred him to CV ICU for pain control. Repeat H&H will be drawn when stable. When stable and bleeding is felt to be controlled, FemoStop will be removed. TRANSINT:[id number] Voice Confirmation ID: [id number] DOCUMENT ID: [id number] ISIAH GARG MD at 1325 CC: [id number] DICTATION DATE: 07/27/18 1630 ARCHITECTURAL SUPERINTENDENT: 07/28/18 0254 ADM IN [address] [id number] [place] [address]
--- NOTE | 2018-07-29 13:31 | NUR ---
PT RESTING QUIETLY AT THIS TIME. SITTING UP IN BED WATCHING TELEVISION WITH . VOICES NO NEEDS AT THIS TIME. HAS EATEN LUNCH.
--- NOTE | 2018-07-29 15:31 | NUR ---
CALLED AND SPOKE WITH DR GILMAN ABOUT GETTING LAB TO CHECK PT H&H. PT HAS ALSO ASKED ABOUT STOPPING DILAUDID AND GETTING TRAMADOL. NEW ORDERS RECEIVED. ORDER RECEIVED TO CALL DR GILMAN BACK IF H&H SHOWS DROP OF SEVERAL POINTS
[2018-07-29 16:07] LABS: BASOPHILS 0.3 % (0-2); EOSINOPHILS 2.5 % (0-7); HEMATOCRIT 28.3 % (42.0-54.0); HEMOGLOBIN 9.2 g/dL (13.5-17.5); IMMATURE GRANULOCYTES 0.6 % (0-5); MCH 29.7 pg (26.0-34.0); MCHC 32.5 g/dL (31.0-37.0); MCV 91.3 fL (80.0-100.0); MEAN PLATELET VOLUME 8.3 fL (7.4-10.4); MONOCYTES 10.5 % (2-11); NEUTROPHILS 60.1 % (40-80); RDW 14.6 % (11.5-14.5); WBC 11.6 10x3/uL (4.8-10.8)
--- NOTE | 2018-07-29 16:07 | NUR ---
LAB HAS BEEN DRAWN AND NOW BACILIO PROVIDED. AT BEDSIDE. HAS BROUGHT PT A SODA AND SOME GRAPES.
[2018-07-29 16:08] LABS: PLATELET COUNT 208 10x3/uL (130-400)
[2018-07-29 16:16] LABS: INR 1.09 (0.85-1.17); PROTIME 13.6 SECONDS (11.6-15.0)
--- NOTE | 2018-07-29 19:00 | NUR ---
SHIFT ASSESSMENT COMPLETE. VS STABLE. NO VISUAL CUES OF DISTRESS NOTED. WILL MONITOR.
--- NOTE | 2018-07-29 23:45 | NUR ---
PT IN CONTINOUS PAIN. YAYO BURR INFORMED OF PT PAIN LEVEL MED ORDERED VSS WILL CONTINUE TO MONITOR.
--- NOTE | 2018-07-29 23:48 | NUR ---
SHIFT ASSESSMENT COMPLETE. NO VISUAL CUES OF DISTRESS NOTED. VS STABLE DENIES ANY OTHER NEEDS AT THIS TIME. WILL MONITOR.
[2018-07-30] VITALS (33 sets, daily range): BP systolic 91–129; BP diastolic 44–83
--- NOTE | 2018-07-30 01:00 | NUR ---
NO VISUAL CUES OF DISTRESS NOTED. VS STABLE. DENIES ANY OTHER NEEDS. WILL MONITOR.
--- NOTE | 2018-07-30 03:01 | NUR ---
VS STABLE. NO VISUAL CUES OF DISTRESS NOTED. WILL MONITOR.
--- NOTE | 2018-07-30 03:02 | NUR ---
NO VISUAL CUES OF DISTRESS NOTED. VS STABLE. DENIES ANY OTHER NEEDS. WILL MONITOR.
[2018-07-30 04:58] LABS: BASOPHILS 0.6 % (0-2); EOSINOPHILS 3.9 % (0-7); HEMATOCRIT 26.9 % (42.0-54.0); HEMOGLOBIN 8.6 g/dL (13.5-17.5); IMMATURE GRANULOCYTES 0.5 % (0-5); LYMPHOCYTES 23.9 % (15-50); MCH 29.3 pg (26.0-34.0); MCV 91.5 fL (80.0-100.0); MEAN PLATELET VOLUME 9.2 fL (7.4-10.4); MONOCYTES 12.3 % (2-11); NEUTROPHILS 58.8 % (40-80); PLATELET COUNT 199 10x3/uL (130-400); RBC 2.94 10x6/uL (4.20-6.10); RDW 14.3 % (11.5-14.5); WBC 10.4 10x3/uL (4.8-10.8)
--- NOTE | 2018-07-30 05:00 | NUR ---
VS STABLE. NO VISUAL CUES OF DISTRESS NOTED. WILL CONTINUE TO MONITOR.
[2018-07-30 05:01] LABS: INR 1.08 (0.85-1.17); PROTIME 13.5 SECONDS (11.6-15.0)
[2018-07-30 05:03] LABS: ANION GAP 6.7 mmol/L (8-16); CARBON DIOXIDE 33.3 mmol/L (21.0-32.0); CREATININE - SERUM 1.5 mg/dL (0.6-1.3)
--- NOTE | 2018-07-30 07:18 | NUR ---
PAGED DR. ALEMAN ABOUT HBG AM LAB DROP FROM 9.2 TO 8.6. WILL CONTINUE TO MONITOR.
--- NOTE | 2018-07-30 15:42 | NUR ---
0700-RECIEVED AWAKE AND ALERT-DR ALEMAN PG'D BY CHECKROOM CHIEF STAFF REGARDING HGB<9.5-RETURN CALL PENDING-ASSESSMENT OF PT-MARKED ABD. TENDERNESS WITH LIGHT TACTILE TOUCH-PT JUMPED AND FACIAL FLINCH- PRESENT AND REMARKED MORE PAIN THEN PRIOR DAY-NOTED ABD DISTENDED AND FIRM-ROUND HEMATOMA TO R OF UMBILICUS-DEMENSIONS CHARTED-R GROIN SOFT TO TOUCH -PPP-R IV IN PLACE-P REMAINS IN SUPINE 0740-NO RETURN CALL FROM DR ALEMAN-CALL SERVICE FOR GASTROENTEROLOGIST DRELANA GILMAN PG'D REGARDING SAME 829-NO RETURN CALL FROM DR GILMAN-CALL REPEATED- 0850-RETURN CALL -STATUS REPORT GIVEN WITH 07/29/18 1600 HGB AND 07/30/18 0500 HGB RESULTS-CURRENT NIBP -HELD PLAVIX NORVASC AND TOPROL FROM AM MEDS-ALL OTHER MEDS GIVEN-DR GILMAN DIRECTED WILL BE IN SHORTLY FOR VISUAL ASSESSMENT 1030-DR GILMAN AT [facility]-SPOKE WITH PT AND REGARDING CURRENT RESULTS AND STATUS-DISCUSSED PLAN WITH BOTH-AGREED TO 2 UNITS PRBC - EXPRESSED PT NEED FOR STRONGER PAIN MEDICINE-DR GILMAN VERBALIZED WILL TAKE INTO CONSIDERATION 1100-BB AT BEDSIDE FOR TS 1310-PRBC UNIT [id number] IN R PERIPHERAL 1430-PT TO CT SCAN FOR CT OF ABD WITHOUT CONTRAST 1515-RETURNED TO CV6 1520-PT STATING PAIN TO ABD 10-CRYING OUT AND FLINCHING-DR QUEVEDO NOTIFIED-ORDERED TO DOUBLE NORCO DOSE-CURRENTLY Q9L-EXP 10MG -INCREASED TO Q4H AND 10MG NEEDED 1600-PRBC INFUSED-R WRIST IV INTACT-2ND UNIT PRBC STARTED -FAMILY AT BEDSIDE- PT STATED PAIN LESSENED-SR 80-98/
--- NOTE | 2018-07-30 19:00 | NUR ---
SHIFT ASSESSMENT COMPLETE. NO VISUAL CUES OF DISTRESS NOTED. VS STABLE. WILL MONITOR.
--- NOTE | 2018-07-30 19:00 | NUR ---
SHIFT ASSESSMENT COMPLETE. NO VISUAL CUES OF DISTRESS NOTED. WILL MONITOR.
--- NOTE | 2018-07-30 21:00 | NUR ---
VS STABLE. NO VISUAL CUES OF DISTRESS NOTED WILL CONTINUE TO MONITOR.
--- NOTE | 2018-07-30 23:00 | NUR ---
VS STABLE. NO VISUAL CUES OF DISTRESS NOTED. WILL CONTINUE TO MONITOR.
--- NOTE | 2018-07-30 23:00 | NUR ---
VS STABLE. NO VISUAL CUES OF DISTRESS NOTED. WILL CONTINUE TO MONITOR.
[2018-07-31] VITALS (15 sets, daily range): BP systolic 110–169; BP diastolic 60–99
--- NOTE | 2018-07-31 01:00 | NUR ---
VS STABLE. NO VISUAL CUES OF DISTRESS NOTED. WILL CONTINUE TO MONITOR.
--- NOTE | 2018-07-31 03:00 | NUR ---
VS STABLE. NO VISUAL CUES OF DISTRESS NOTED. WILL CONTINUE TO MONITOR.
--- NOTE | 2018-07-31 05:00 | NUR ---
VS STABLE. NO VISUAL CUES OF DISTRESS NOTED. WILL CONTINUE TO MONITOR.
[2018-07-31 05:38] LABS: HEMATOCRIT 30.7 % (42.0-54.0); HEMOGLOBIN 10.2 g/dL (13.5-17.5); MCH 29.9 pg (26.0-34.0); MCHC 33.2 g/dL (31.0-37.0); MEAN PLATELET VOLUME 9.1 fL (7.4-10.4); RBC 3.41 10x6/uL (4.20-6.10); RDW 14.4 % (11.5-14.5); WBC 8.9 10x3/uL (4.8-10.8)
[2018-07-31 06:07] LABS: INR 1.12 (0.85-1.17); PROTIME 13.9 SECONDS (11.6-15.0)
--- NOTE | 2018-07-31 14:49 | NUR ---
NOTIFIED DR GILMAN OF TRANSFER TO 2107-AGREED TO SAME -
--- NOTE | 2018-07-31 14:51 | NUR ---
0730-RECIEVED AWAKE AND ALERT-STATED ALREADY BROUGHT BREAKFEST-R GROIN SOFT TO TOUCH-ABD DISTENDED-NOT TENDER TO LIGHT TOUCH-REMAINS FIRM R HAND IV INFUSING N/S AT 50ML/H-SR ON MONITOR 0845-PT STATED PAIN INCREASING TO BCK AND NECK-CHRONIC NORCO 1 TAB PO GIVEN 1030-DR QUEVEDO AT BEDSIDE-SPOKE WITH FAMILY AND PT REGARDING COURSE OF EVENTS-TRANSFER ORDER 1130- VOICED CONCERN NIPB NOT DONE FOR 1.30HR-INFORMED ON TRANSFER LIST AND DECREASED TO Q4H- REMOVED BP CUFF FROM PT L ARM- STATED WILL AGREE TO TRANSFER IF OK'D WITH DR GILMAN-SAME DONE- 1400-PT RELUCTANT TO AMBULATED -STATED NIGHT NURSE TOLD HIM HE SHOULDN'T-STRESSED DR BROWN IS WHAT IS REQUIRED AND RECOMMENDED TO FOLLOW-PT REMAINS RELUCTANT-DR GILMAN NOTIFIED REGARDING SAME-PHYSICAL THERAPY CONSULT ORDERED-
--- NOTE | 2018-07-31 15:25 | NUR ---
PHYSICAL THERAPY AT BEDSIDE AND ASSISTED PT TO CHAIR-NURSING LIMEHOUSE WORKER AT BEDSIDE-TO TRANSFER PT 2107 VIA WHEEL CHAIR-PT RELUCTANT TO STAND-STATED DR GILMAN SAID DID NOT NEED TO LIFT ANYTHING-AND PHYSICAL THERAPIST STATED SAME THAT DR GILMAN TOLD HIM THAT-CLARIFIED WITH PT SPOKE ON PHONE WITH DR GILMAN AT 1445-AND ORDERED OUT OF BED AND AMBULATION-WITH NURSE AND PHYSICAL THERAPY-PT BECAME ARGUMENTIVE AND STATED NURSE"NEW TO MUCH" THAT DR GILMAN TOLD HIMTODAY-NOTED DR GILMAN DID NOT DO ROUNDS TO CURRENT TIME AND ALL COMMUNICATION VIA TELEPHONE WITH DR GILMAN-NURSING SUERVISOR AND 2 RN'S PRESENT PT TRANSFERED TO FLOOR VIA WHEELCHAIR-BY NURSING LIMEHOUSE WORKER
--- NOTE | 2018-07-31 15:30 | NUR ---
PATIENT ARRIVED TO ROOM 2108 VIA WHEELCHAIR WITH APPEALS REPRESENTATIVE. PATIENT TRANSFERRED SELF FROM WHEELCHAIR TO BED. PATIENT ALERT/ORIENTED. RESP EVEN AND UNLABORED. NO DISTRESS. PATIENT MOVING SLOWLY DUE TO PAIN IN ABD. PATIENT TO UNIT SOON. PATIENT STATES SHE HAD TO GO MOVE THE CAR. CALL LIGHT PLACED WITHIN REACH. SR UP FOR SAFETY. BRUISING TO ABD, PENIS, AND SCROTUM NOTED. COOL SPOT TO RIGHT MID TO LOWER QUAD PALPATED WITH BRUISING.
--- NOTE | 2018-07-31 16:40 | NUR ---
TELEMETRY AND SCD'S APPLIED TO PATIENT.
--- NOTE | 2018-07-31 17:08 | NUR ---
MEDICATED FOR PAIN AT THIS TIME.
--- NOTE | 2018-07-31 19:00 | NUR ---
PATIENT LAYING IN BED. NO COMPLAINTS AT THIS TIME. NO DISTRESS NOTED.
--- NOTE | 2018-08-01 01:00 | NUR ---
PATIENT LAYING IN BED, EYES CLOSED, CHEST RISING AND FALLING. NO DISTRESS NOTED.
--- NOTE | 2018-08-01 03:25 | NUR ---
I have reviewed this patient and I concur with the Shift Assessment completed by the Licensed Practical Nurse today this shift.
[2018-08-01 03:55] VITALS: BP 147/92
[2018-08-01 04:53] LABS: BASOPHILS 0.4 % (0-2); EOSINOPHILS 4.2 % (0-7); HEMATOCRIT 32.1 % (42.0-54.0); HEMOGLOBIN 10.7 g/dL (13.5-17.5); IMMATURE GRANULOCYTES 0.8 % (0-5); LYMPHOCYTES 13.2 % (15-50); MCHC 33.3 g/dL (31.0-37.0); MCV 89.9 fL (80.0-100.0); MEAN PLATELET VOLUME 9.2 fL (7.4-10.4); MONOCYTES 11.8 % (2-11); NEUTROPHILS 69.6 % (40-80); PLATELET COUNT 199 10x3/uL (130-400); RBC 3.57 10x6/uL (4.20-6.10); RDW 14.1 % (11.5-14.5); WBC 8.9 10x3/uL (4.8-10.8)
[2018-08-01 05:01] LABS: INR 1.16 (0.85-1.17); PROTIME 14.3 SECONDS (11.6-15.0)
[2018-08-01 05:11] LABS: CALCIUM 8.5 mg/dL (8.5-10.1); CARBON DIOXIDE 32.9 mmol/L (21.0-32.0); CHLORIDE - SERUM 99 mmol/L (98-107); GLUCOSE 109 mg/dL (74-106); POTASSIUM - SERUM 4.4 mmol/L (3.5-5.1); SODIUM 136 mmol/L (136-145); eGFR NON AFRICAN AMERICAN 82 mL/min (90-120)
[2018-08-01 05:16] LABS: CALC OSMOLALITY 272 mosm/kg (275-300); UREA NITROGEN 13 mg/dL (7-18)
[2018-08-01 08:05] VITALS: BP 148/94
[2018-08-01 11:38] VITALS: BP 133/87
--- NOTE | 2018-08-01 11:41 | NUR ---
PT AMBULATED WITH THERAPY AND STATES IT "HURTS LIKE HELL" BUT HE DOES FEEL LIKE HE IS ACHIEVING MORE. PT DENIES WANTING A PAIN PILL AT THIS TIME EVEN THOUGH HE IS HURTING AND WANTS TO WAIT SO HE CAN BE ALERT ENOUGH FOR A SHOWER SOON HE STATES. NO CURRENT NEEDS AT THIS TIME. CL IN REACH, BED IN LOWEST, SIDE RAILS X2. WILL CTM.
--- NOTE | 2018-08-01 12:02 | MORECARE ---
CASE MANAGEMENT DISCHARGE SUMMARY PATIENT: IKER LOWE UNIT: [id number] ADM DATE: 07/26/18 AGE: 58 : 64 SEX: M ROOM/BED: D.2108 AUTHOR: GIANFRANCO MCCAULEY PHYSICIAN: REFERRING PHYSICIAN: ROSELIA QUEVEDO MD DATE OF SERVICE: 08/01/18 Discharge Plan Patient Name: IKER LOWE [facility] [facility] 1960 Planned Disposition: Home Anticipated Discharge Date: Discharge Date: Expected LOS: Initial Reviewer: [email or web address] Initial Review Date: 07/28/2018 Generated: 08/01/18 1:01 pm Comments DCP- Discharge Planning Updated by [email or web address]: Caleb Xavier on 08/01/18 11:[address] Patient Name: IKER LOWE Encounter No: [id number] : 1960 Primary Insurance: MEDICARE A & B Anticipated DC Date: Planned Disposition: INPATIENT REHAB External Planned Provider: [facility] INPATIENT REHAB DCP follow-up note: CM REVIEWED CHART, DOCTORS NOTE INDICATES PT MAY NEED REHAB. CM MET WITH PT IN ROOM TO DISCUSS REHAB OPTIONS. PT REPORTS THAT HE AND HIS ARE CONSIDERING OUTPATIENT REHAB AT [facility] IN [place], [place]. THEY WILL DISCUSS PT STAYING HERE FOR REHAB AT [place] TODAY AND LET CM KNOW IF THEY WOULD LIKE CONSIDERATION FOR REHAB AT [place]. CM RECEIVED CALL FROM GRISELDA OF INPATIENT REHAB, NOTIFIED HER OF PT AND CONSIDERING REHAB AT [place]. IMPORTANT MESSAGE FROM MEDICARE PROVIDED AND EXPLAINED. CM WAITING PT AND SPOUSE DECISION REGARDING REHAB. MARCUS Ortiz DCP- Discharge Planning Updated by [email or web address]: Cindy Steel on 07/28/18 6:[address] Patient Name: IKER LOWE Admission Status: ER Accout number: [id number] Admission Date: 07-26-2018 : 1960 Admission Diagnosis:ATHSCL HEART DISEASE OF [place] CORONARY ARTERY W/O ANG Attending: ROSELIA QUEVEDO Current LOS: 2 Anticipated DC Date: Planned Disposition: Home Primary Insurance: MEDICARE A & B Discharge Planning Comments: CM met with patient and spouse (Aracelis) at bedside after explaining CM role and obtaining verbal consent. Patient lives at home with his Aracelis and plans to return there upon discharge. Patient feels this would be a safe discharge. Patient states he has Home 02 and portable, CPAP, and nebulizer. CM discussed availability / needs of home health and medical equipment. Patient denies any discharge needs at this time. Patient states he will have his drive him home upon discharge. CM will continue to follow and assist as needed with discharge planning / needs. Loading Checker: Cindy Steel DCPIA - Discharge Planning Initial Assessment Updated by [email or web address]: Cindy Steel on 07/28/18 7:50 pm * Is the patient Alert and Oriented? Yes * How many steps to enter\exit or inside your home? * PCP MADELEINE JARA - [place] * Pharmacy [facility] * Preadmission Environment Home with Family * ADLs Independent * Other Equipment 02 HOME/ PORTABLE, CPAP, NEBULIZER * List name and contact numbers for known caregivers / representatives who currently or will assist patient after discharge: ARACELIS LOWE - SPOUSE- [phone] * Verbal permission to speak to the caregivers and representatives has been obtained from the patient. Yes * Community resources currently utilized None * Additional services required to return to the preadmission environment? No * Can the patient safely return to the preadmission environment? Yes * Has this patient been hospitalized within the prior 30 days at any hospital? Yes Coverage Notice Reviewer: [email or web address] - Caleb Xavier Notice Issued Date-Time: 08/01/2018 11:30 Notice Type: IM Discharge Notice Notice Delivered To: Patient Relationship to Patient: Roof Designer Name: Delivery Method: HAND - Hand Delivered Christiana Days: Prior Verbal Notification: Recipient Understood Notice: Yes Recipient Signature: Yes Med Rec Note Co-signed by Attending: Coverage Notice Comment: Last DP export: 07/28/18 7:02 p Patient Name: IKER LOWE Page 18950 at 1202 All edits/amendments must be made on the electronic document DICTATION DATE: 08/01/18 1201 MOBILE UI DESIGNER: HINA 08/01/18 1201 RPT#: [id number] RI DATE: STATUS: ADM IN [facility] [address] [place] [address] END OF REPORT
--- NOTE | 2018-08-01 12:26 | NUR ---
PT WANTING TO TRY TO GET IN THE SHOWER. AT SIDE TO ASSIST ALONG WITH ACCOUNT DEVELOPMENT MANAGER AND A SHOWER CHAIR. SUPPLIES GATHERED AND PIV WRAPPED. NO FURTHER NEEDS AT THIS TIME.
--- NOTE | 2018-08-01 17:00 | NUR ---
PT SITTING UP IN BED RESTING QUIETLY WITH DINNER TRAY AT SIDE. DENIES ANY CURRENT NEEDS, WOULD LIKE HIS PAIN MEDICATION WHEN HE CAN HAVE IT. EXPLAINED FOR HIS PRN PRASANNA HOWEVER HE STATES HE WOULD RATHER WAIT ON HIS DILAUDID TIME. WILL CONTIUE TO MONITER. NO CURRENT NEEDS.
--- NOTE | 2018-08-01 17:03 | MORECARE ---
CASE MANAGEMENT DISCHARGE SUMMARY PATIENT: IKER LOWE UNIT: [id number] ADM DATE: 07/26/18 AGE: 58 : 64 SEX: M ROOM/BED: D.2108 AUTHOR: GARRICKDOC PHYSICIAN: REFERRING PHYSICIAN: ROSELIA QUEVEDO MD DATE OF SERVICE: 08/01/18 Discharge Plan Patient Name: IKER LOWE Facility: [facility]:[place] : 1960 Planned Disposition: Inpatient Rehab Anticipated Discharge Date: 08/02/18 Discharge Date: Expected LOS: 7 Initial Reviewer: [id number] Initial Review Date: 07/28/2018 Generated: 08/01/18 6:03 pm Comments DCP- Discharge Planning Updated by [id number]: Caleb Trinidad on 08/01/18 3:[address] Patient Name: IKER LOWE Encounter No: [id number] : 1960 Primary Insurance: MEDICARE A & B Anticipated DC Date: Planned Disposition: INPATIENT REHAB External Planned Provider: [facility] INPATIENT REHAB DCP follow-up note: CM REVIEWED CHART, DOCTORS NOTE INDICATES PT MAY NEED REHAB. CM MET WITH PT IN ROOM TO DISCUSS REHAB OPTIONS. PT REPORTS THAT HE AND HIS ARE CONSIDERING [facility]PATIENT REHAB AT [facility] IN [place], [place]. THEY WILL DISCUSS PT STAYING HERE FOR REHAB AT [place] TODAY AND LET CM KNOW IF THEY WOULD LIKE CONSIDERATION FOR REHAB AT [place]. CM RECEIVED CALL FROM GRISELDA OF INPATIENT REHAB, NOTIFIED HER OF PT AND CONSIDERING REHAB AT [place]. IMPORTANT MESSAGE FROM MEDICARE PROVIDED AND EXPLAINED. CM WAITING PT AND SPOUSE DECISION REGARDING REHAB. Caleb Trinidad, CASE MANAGEMENT Appended by Caleb Trinidad on 08/01/2018 16:58 CDT: CM SPOKE TO PT AND SPOUSE IN ROOM, BOTH IN AGREEMENT WITH DISCHARGE TO INPATIENT REHAB AT [place]. SPOUSE REQUESTED PRIVATE ROOM, CM EXPLAINED THAT THEY ONLY HAVE TWO PRIVATE ROOMS AND THOSE ARE USUALLY RESERVED FOR ISOLATION PATIENTS. PT'S SPOUSE REPORTS UNDERSTANDING, STILL WANTS INPATIENT REHAB AT [place], EVEN IF ROOM IS SEMI PRIVATE. CM CALLED AND NOTIFIED SAMUEL OF INPATIENT REHAB WHO INFORMED CM THAT THEY WOULD LIKE TO ACCEPT WHEN PT IS STABLE FOR DISCHARGE. WHEN DISCHARGE IS RECEIVED, NOTIFY [facility] WHO WILL CONTACT MED 2 NURSE WITH ROOM NUMBER WHEN READY TO ACCEPT PT AND NURSE REPORT. CALEB TRINIDAD, CASE MANAGEMENT DCP- Discharge Planning Updated by [id number]: Cindy Steel on 07/28/18 6:[address] Patient Name: IKER LOWE Admission Status: ER Accout number: [id number] Admission Date: 07-26-2018 : 1960 Admission Diagnosis:ATHSCL HEART DISEASE OF [place] CORONARY ARTERY W/O ANG Attending: ROSELIA QUEVEDO Current LOS: 2 Anticipated DC Date: Planned Disposition: Home Primary Insurance: MEDICARE A & B Discharge Planning Comments: CM met with patient and spouse (Aracelis) at bedside after explaining CM role and obtaining verbal consent. Patient lives at home with his Aracelis and plans to return there upon discharge. Patient feels this would be a safe discharge. Patient states he has Home 02 and portable, CPAP, and nebulizer. CM discussed availability / needs of home health and medical equipment. Patient denies any discharge needs at this time. Patient states he will have his drive him home upon discharge. CM will continue to follow and assist as needed with discharge planning / needs. Teacher Adult Education: Cindy Steel DCPIA - Discharge Planning Initial Assessment Updated by [id number]: Cindy Steel on 07/28/18 7:50 pm * Is the patient Alert and Oriented? Yes * How many steps to enter\exit or inside your home? * PCP [facility] [place] * Pharmacy [facility] * Preadmission Environment Home with Family * ADLs Independent * Other Equipment 02 HOME/ PORTABLE, CPAP, NEBULIZER * List name and contact numbers for known caregivers / representatives who currently or will assist patient after discharge: ARACELIS LOWE - SPOUSE- [phone] * Verbal permission to speak to the caregivers and representatives has been obtained from the patient. Yes * Community resources currently utilized None * Additional services required to return to the preadmission environment? No * Can the patient safely return to the preadmission environment? Yes * Has this patient been hospitalized within the prior 30 days at any hospital? Yes Coverage Notice Reviewer: [id number] - Caleb Trinidad Notice Issued Date-Time: 08/01/2018 11:30 Notice Type: IM Discharge Notice Notice Delivered To: Patient Relationship to Patient: Portal Architect Name: Delivery Method: HAND - Hand Delivered Christiana Days: Prior Verbal Notification: Recipient Understood Notice: Yes Recipient Signature: Yes Med Rec Note Co-signed by Attending: Coverage Notice Comment: Last DP export: 08/01/18 11:02 a Patient Name: IKER LOWE Page 32695 at 1703 All edits/amendments must be made on the electronic document DICTATION DATE: 08/01/181702 CLIENT EXECUTIVE: HINA 08/01/181702 RPT#: [id number] DC DATE: STATUS: ADM IN [facility] [address] [place] [address] END OF REPORT
--- NOTE | 2018-08-01 18:00 | NUR ---
PT C/O CONSTIPATION. ABDOMEN IS VERY HARD AND DISTENDED HOWEVER COULD BE FROM PREVIOUS ISSUES. BS ARE ACTIVE X4. DISCUSSED WITH PHYSICIANS AND WILL HAVE STOOL SOFTNER ORDERED.
[2018-08-01 18:48] VITALS: BP 142/90
--- NOTE | 2018-08-01 19:20 | NUR ---
RESTLESS AND CO OF PAIN WILL ATTEMPT TO ALIEVIATE WITH PRNS BED IS LOW AND LOCKED LCTA ABLE FIRM BOWEL SOUNDS TIMES 4..SWELLING BUT NO BRUISING TO BACK CALL LIGHT IS IN REACH
[2018-08-01 20:00] VITALS: BP 126/86
--- NOTE | 2018-08-02 00:21 | NUR ---
WOKE UP IN SEVERE PAIN NO CHANGE IN EXAM...PRN FOR PAIN GIVEN AND XANAX WELL
--- NOTE | 2018-08-02 02:21 | NUR ---
I have reviewed this patient and I concur with the Shift Assessment completed by the Licensed Practical Nurse today this shift.
[2018-08-02 04:00] VITALS: BP 122/78
[2018-08-02 07:13] LABS: CALC OSMOLALITY 268 mosm/kg (275-300); CALCIUM 8.8 mg/dL (8.5-10.1); CARBON DIOXIDE 31.1 mmol/L (21.0-32.0); CHLORIDE - SERUM 98 mmol/L (98-107); CREATININE - SERUM 0.9 mg/dL (0.6-1.3); GLUCOSE 96 mg/dL (74-106); POTASSIUM - SERUM 4.5 mmol/L (3.5-5.1); SODIUM 134 mmol/L (136-145); UREA NITROGEN 15 mg/dL (7-18); eGFR NON AFRICAN AMERICAN > 90 mL/min (90-120)
[2018-08-02 07:19] LABS: BASOPHILS 0.2 % (0-2); EOSINOPHILS 4.9 % (0-7); HEMATOCRIT 32.5 % (42.0-54.0); HEMOGLOBIN 10.6 g/dL (13.5-17.5); IMMATURE GRANULOCYTES 0.8 % (0-5); LYMPHOCYTES 11.6 % (15-50); MCH 29.3 pg (26.0-34.0); MCHC 32.6 g/dL (31.0-37.0); MCV 89.8 fL (80.0-100.0); MEAN PLATELET VOLUME 9.2 fL (7.4-10.4); MONOCYTES 13.3 % (2-11); NEUTROPHILS 69.2 % (40-80); PLATELET COUNT 213 10x3/uL (130-400); RBC 3.62 10x6/uL (4.20-6.10); RDW 13.8 % (11.5-14.5); WBC 9.6 10x3/uL (4.8-10.8)
--- NOTE | 2018-08-02 08:15 | NUR ---
AM ROUNDS COMPLETED. INTRODUCED MYSELF TO PT PRIMARY RN FOR TODAYS SHIFT. PT IS A&O SITTING UP IN BED EATING BREAKFAST AT THIS TIME. AT BEDSIDE. SHIFT ASSESSMENT COMPLETED. PT STATES HIS PAIN IS WORSE TODAY OR THIS MORNING SO FAR, I WILL CHECK ON TIMES FOR PAIN MEDICATION. PT VOICED THANKS. NO IMMEDIATE NEEDS. WILL CTM.
[2018-08-02 08:49] VITALS: BP 145/98
--- NOTE | 2018-08-02 09:15 | NUR ---
PROVIDED PT WITH PRN PAIN MEDICATION REQUESTED FOR SEVERE PAIN AND PULLS ME OUTSIDE AND STATES "I THINK HES HAD A STROKE, HIS LEFT EYE IS DROOPY. SHE IS STATING HES TALKING "OUT OF HIS HEAD AND NOT MAKING SENSE" SHE STATES HE WILL BE TALKING AND THEN IMMEDIATELY JUST FREEZE UP. I WENT IN AND ASSESSED PT AND PERRLA INTACT, PT A&O NO FACIAL DROOPING NOTED. FACE IS COMPLETELY SYMMETRICAL TO ME. HOWEVER I DID NOTE UPON TALKING TO HIM AND HIS HIS EYES ROLLED BACK AND HE DOZED OFF. I START TALKING TO HIM AND HE IMMEDIATELY OPENS HIS EYES AND IS COMPLETELY ORIENTED. ITS REALLY HARD TO TELL IF HES JUST TIRED AND SEDATED FROM PAIN MEDICATINO OR WHAT, BUT IS VERY CONCERNED. WILL PAGE PRIMARY TO MAKE THEM AWARE AND CONTINUE TO WATCH THIS.
--- NOTE | 2018-08-02 13:02 | NUR ---
Nutrition follow-up: Diet: AHA PO intake 75-100% of last 3 meals Wt: 227# Labs reviewed RDN following.
[2018-08-02 13:43] VITALS: BP 145/96
--- NOTE | 2018-08-02 13:45 | NUR ---
PT THRASHING AROUND IN BED C/O SEVERE PAIN AGAIN. PROVIDED HIM WITH HIS PRN PAIN MEDICATION. PT IS A&O AND NO DEFICITS SEEN HOWEVER STILL ADAMENT ABOUT SOMETHING NOT BEING "RIGHT" IN HIS HEAD. ALSO COMPLAINING THAT PT DIDNT GET TO AMBULATE WITH THERAPY WHEN HE CAME BY EAR[facility]ER PT WAS IN THE BR. IS CONCERNED AND NOT THINKING HE IS STRONG ENOUGH FOR REHAB. WILL DISCUSS WITH THERAPY AND SEE WHEN THEY CAN AMBULATE WITH HIM AGAIN. PT IS GETTING UP TO BR NOW WITH ASSISTANCE OF HIS AND DOING BETTER IN MY OPINION. WILL CONTINUE TO MONITER.
--- NOTE | 2018-08-02 15:42 | MORECARE ---
CASE MANAGEMENT DISCHARGE SUMMARY PATIENT: IKER LOWE UNIT: [id number] ADM DATE: 07/26/18 AGE: 58 : 64 SEX: M ROOM/BED: D.2108 AUTHOR: GARRICKDOC PHYSICIAN: REFERRING PHYSICIAN: ROSELIA QUEVEDO MD DATE OF SERVICE: 08/02/18 Discharge Plan Patient Name: IKER LOWE Facility: [facility]:[place] : 1960 Planned Disposition: Inpatient Rehab Anticipated Discharge Date: 08/02/18 Discharge Date: Expected LOS: 7 Initial Reviewer: [email or web address] Initial Review Date: 07/28/2018 Generated: 08/02/18 4:42 pm Comments DCP- Discharge Planning Updated by [id number]: Caleb Trinidad on 08/01/18 3:[address] Patient Name: IKER LOWE Encounter No: [id number] : 1960 Primary Insurance: MEDICARE A & B Anticipated DC Date: Planned Disposition: INPATIENT REHAB External Planned Provider: [facility] INPATIENT REHAB DCP follow-up note: CM REVIEWED CHART, DOCTORS NOTE INDICATES PT MAY NEED REHAB. CM MET WITH PT IN ROOM TO DISCUSS REHAB OPTIONS. PT REPORTS THAT HE AND HIS ARE CONSIDERING [facility]PATIENT [facility]HAB AT [facility] IN [place], [place]. THEY WILL DISCUSS PT STAYING HERE FOR REHAB AT [place] TODAY AND LET CM KNOW IF THEY WOULD LIKE CONSIDERATION FOR REHAB AT [place]. CM RECEIVED CALL FROM GRISELDA OF INPATIENT REHAB, NOTIFIED HER OF PT AND CONSIDERING REHAB AT [place]. IMPORTANT MESSAGE FROM MEDICARE PROVIDED AND EXPLAINED. CM WAITING PT AND SPOUSE DECISION REGARDING REHAB. Caleb Trinidad, CASE MANAGEMENT Appended by Caleb Trinidad on 08/01/2018 16:58 CDT: CM SPOKE TO PT AND SPOUSE IN ROOM, BOTH IN AGREEMENT WITH DISCHARGE TO INPATIENT REHAB AT [place]. SPOUSE REQUESTED PRIVATE ROOM, CM EXPLAINED THAT THEY ONLY HAVE TWO PRIVATE ROOMS AND THOSE ARE USUALLY RESERVED FOR ISOLATION PATIENTS. PT'S SPOUSE REPORTS UNDERSTANDING, STILL WANTS INPATIENT REHAB AT [place], EVEN IF ROOM IS SEMI PRIVATE. CM CALLED AND NOTIFIED SAMUEL OF INPATIENT REHAB WHO INFORMED CM THAT THEY WOULD LIKE TO ACCEPT WHEN PT IS STABLE FOR DISCHARGE. WHEN DISCHARGE IS RECEIVED, [facility] WHO WILL CONTACT MED 2 NURSE WITH ROOM NUMBER WHEN READY TO ACCEPT PT AND NURSE REPORT. CALEB TRINIDAD, CASE MANAGEMENT DCP- Discharge Planning Updated by [id number]: Cindy Steel on 07/28/18 6:[address] Patient Name: IKER LOWE Admission Status: ER Accout number: [id number] Admission Date: 07-26-2018 : 1960 Admission Diagnosis:ATHSCL HEART DISEASE OF [place] CORONARY ARTERY W/O ANG Attending: ROSELIA QUEVEDO Current LOS: 2 Anticipated DC Date: Planned Disposition: Home Primary Insurance: MEDICARE A & B Discharge Planning Comments: CM met with patient and spouse (Aracelis) at bedside after explaining CM role and obtaining verbal consent. Patient lives at home with his Aracelis and plans to return there upon discharge. Patient feels this would be a safe discharge. Patient states he has Home 02 and portable, CPAP, and nebulizer. CM discussed availability / needs of home health and medical equipment. Patient denies any discharge needs at this time. Patient states he will have his drive him home upon discharge. CM will continue to follow and assist as needed with discharge planning / needs. Application Development Team Lead: Cindy Steel DCPIA - Discharge Planning Initial Assessment Updated by [email or web address]: Cindy Steel on 07/28/18 7:50 pm * Is the patient Alert and Oriented? Yes * How many steps to enter\exit or inside your home? * PCP [facility] J[facility] [place] * Pharmacy [facility] * Preadmission Environment Home with Family * ADLs Independent * Other Equipment 02 HOME/ PORTABLE, CPAP, NEBULIZER * List name and contact numbers for known caregivers / representatives who currently or will assist patient after discharge: ARACELIS LOWE - SPOUSE- [phone] * Verbal permission to speak to the caregivers and representatives has been obtained from the patient. Yes * Community resources currently utilized None * Additional services required to return to the preadmission environment? No * Can the patient safely return to the preadmission environment? Yes * Has this patient been hospitalized within the prior 30 days at any hospital? Yes Coverage Notice Reviewer: [id number] - Caleb Trinidad Notice Issued Date-Time: 08/01/2018 11:30 Notice Type: IM Discharge Notice Notice Delivered To: Patient Relationship to Patient: Shipping Assistant Name: Delivery Method: HAND - Hand Delivered Christiana Days: Prior Verbal Notification: Recipient Understood Notice: Yes Recipient Signature: Yes Med Rec Note Co-signed by Attending: Coverage Notice Comment: Last DP export: 08/01/18 4:03 p Patient Name: IKER LOWE Page [id number] at 1542 All edits/amendments must be made on the electronic document DICTATION DATE: 08/02/181541 RURAL CARRIER: HINA 08/02/181541 RPT#: [id number] DC DATE: STATUS: ADM IN [facility] [address] [place] [address] END OF REPORT
[2018-08-02 17:26] VITALS: BP 119/86
[2018-08-02 18:27] LABS: PROTIME 16.5 SECONDS (11.6-15.0)
[2018-08-02 18:28] LABS: INR 1.4 (0.85-1.17)
--- NOTE | 2018-08-02 19:20 | NUR ---
AWAKE AND SOMEWHAT AGITATED CO PAIN SKIN WARM AND DRY AND LCTA BED IS LOW AND LOCKED AND CALL LIGHT IN REACH PULSES INTACT AND NO ADDITIONAL EDEMA IS NOTED FROM PREVIOUS DAY IV TO RT HAND IS SL WILL BRING PT PRN FOR PAIN CONTROL
[2018-08-02 20:00] VITALS: BP 147/98
[2018-08-03] VITALS: BP 122/82
[2018-08-03 04:00] VITALS: BP 135/77
--- NOTE | 2018-08-03 04:14 | NUR ---
I have reviewed this patient and I concur with the Shift Assessment completed by the Licensed Practical Nurse today this shift.
[2018-08-03 05:57] LABS: BASOPHILS 0.2 % (0-2); EOSINOPHILS 4.7 % (0-7); HEMATOCRIT 33.3 % (42.0-54.0); HEMOGLOBIN 10.8 g/dL (13.5-17.5); IMMATURE GRANULOCYTES 0.6 % (0-5); LYMPHOCYTES 10.5 % (15-50); MCH 29.3 pg (26.0-34.0); MCHC 32.4 g/dL (31.0-37.0); MCV 90.5 fL (80.0-100.0); MEAN PLATELET VOLUME 8.9 fL (7.4-10.4); MONOCYTES 14.5 % (2-11); NEUTROPHILS 69.5 % (40-80); PLATELET COUNT 217 10x3/uL (130-400); RBC 3.68 10x6/uL (4.20-6.10); RDW 13.6 % (11.5-14.5); WBC 8.3 10x3/uL (4.8-10.8)
[2018-08-03 05:58] LABS: ANION GAP 6.1 mmol/L (8-16); CALCIUM 8.5 mg/dL (8.5-10.1); CARBON DIOXIDE 34.8 mmol/L (21.0-32.0); CREATININE - SERUM 1.1 mg/dL (0.6-1.3); MAGNESIUM - SERUM 2.1 mg/dL (1.8-2.4); POTASSIUM - SERUM 3.9 mmol/L (3.5-5.1)
--- NOTE | 2018-08-03 07:59 | NUR ---
PATIENT REPORTS PAIN IN THE ABD AND BACK, SPOUSE AT BEDSIDE, BREAKFAST HAS ARRIVED, ASSESSMENT COMPLETE.
[2018-08-03 08:31] VITALS: BP 121/74
--- NOTE | 2018-08-03 08:43 | NUR ---
PATIENT IS TAKING A SHOWER AFTER HAVING RIGHT HAND IV WRAPPED TO PROTECT
--- NOTE | 2018-08-03 11:05 | MORECARE ---
CASE MANAGEMENT DISCHARGE SUMMARY PATIENT: IKER LOWE UNIT: [id number] ADM DATE: 07/26/18 AGE: 58 : 64 SEX: M ROOM/BED: D.2108 AUTHOR: GARRICKDOC PHYSICIAN: REFERRING PHYSICIAN: ROSELIA QUEVEDO MD DATE OF SERVICE: 08/03/18 Discharge Plan Patient Name: IKER LOWE Facility: [facility]:[place] : 1960 Planned Disposition: Inpatient Rehab Anticipated Discharge Date: 08/02/18 Discharge Date: Expected LOS: 7 Initial Reviewer: [email or web address] Initial Review Date: 07/28/2018 Generated: 08/03/18 12:05 pm Comments DCP- Discharge Planning Updated by [id number]: Caleb Trinidad on 08/01/18 3:[address] Patient Name: IKER LOWE Encounter No: [id number] : 1960 Primary Insurance: MEDICARE A & B Anticipated DC Date: Planned Disposition: INPATIENT REHAB External Planned Provider: [facility] INPATIENT REHAB DCP follow-up note: CM REVIEWED CHART, DOCTORS NOTE INDICATES PT MAY NEED REHAB. CM MET WITH PT IN ROOM TO DISCUSS REHAB OPTIONS. PT REPORTS THAT HE AND HIS ARE CONSIDERING [facility]PATIENT [facility]HAB AT [facility] IN [place], [place]. THEY WILL DISCUSS PT STAYING HERE FOR REHAB AT [place] TODAY AND LET CM KNOW IF THEY WOULD LIKE CONSIDERATION FOR REHAB AT [place]. CM RECEIVED CALL FROM GRISELDA OF INPATIENT REHAB, NOTIFIED HER OF PT AND CONSIDERING REHAB AT [place]. IMPORTANT MESSAGE FROM MEDICARE PROVIDED AND EXPLAINED. CM WAITING PT AND SPOUSE DECISION REGARDING REHAB. Caleb Trinidad, CASE MANAGEMENT Appended by Caleb Trinidad on 08/01/2018 16:58 CDT: CM SPOKE TO PT AND SPOUSE IN ROOM, BOTH IN AGREEMENT WITH DISCHARGE TO INPATIENT REHAB AT [place]. SPOUSE REQUESTED PRIVATE ROOM, CM EXPLAINED THAT THEY ONLY HAVE TWO PRIVATE ROOMS AND THOSE ARE USUALLY RESERVED FOR ISOLATION PATIENTS. PT'S SPOUSE REPORTS UNDERSTANDING, STILL WANTS INPATIENT REHAB AT [place], EVEN IF ROOM IS SEMI PRIVATE. CM CALLED AND NOTIFIED SAMUEL OF INPATIENT REHAB WHO INFORMED CM THAT THEY WOULD LIKE TO ACCEPT WHEN PT IS STABLE FOR DISCHARGE. WHEN DISCHARGE IS RECEIVED, [facility] WHO WILL CONTACT MED 2 NURSE WITH ROOM NUMBER WHEN READY TO ACCEPT PT AND NURSE REPORT. CALEB TRINIDAD, CASE MANAGEMENT DCP- Discharge Planning Updated by [id number]: Cindy Steel on 07/28/18 6:[address] Patient Name: IKER LOWE Admission Status: ER Accout number: [id number] Admission Date: 07-26-2018 : 1960 Admission Diagnosis:ATHSCL HEART DISEASE OF [place] CORONARY ARTERY W/O ANG Attending: ROSELIA QUEVEDO Current LOS: 2 Anticipated DC Date: Planned Disposition: Home Primary Insurance: MEDICARE A & B Discharge Planning Comments: CM met with patient and spouse (Aracelis) at bedside after explaining CM role and obtaining verbal consent. Patient lives at home with his Aracelis and plans to return there upon discharge. Patient feels this would be a safe discharge. Patient states he has Home 02 and portable, CPAP, and nebulizer. CM discussed availability / needs of home health and medical equipment. Patient denies any discharge needs at this time. Patient states he will have his drive him home upon discharge. CM will continue to follow and assist as needed with discharge planning / needs. Nuisance Wildlife Trapper: Cindy Steel DCPIA - Discharge Planning Initial Assessment Updated by [email or web address]: Cindy Steel on 07/28/18 7:50 pm * Is the patient Alert and Oriented? Yes * How many steps to enter\exit or inside your home? * PCP [facility] [place] * Pharmacy [facility] * Preadmission Environment Home with Family * ADLs Independent * Other Equipment 02 HOME/ PORTABLE, CPAP, NEBULIZER * List name and contact numbers for known caregivers / representatives who currently or will assist patient after discharge: ARACELIS LOWE - SPOUSE- [phone] * Verbal permission to speak to the caregivers and representatives has been obtained from the patient. Yes * Community resources currently utilized None * Additional services required to return to the preadmission environment? No * Can the patient safely return to the preadmission environment? Yes * Has this patient been hospitalized within the prior 30 days at any hospital? Yes Coverage Notice Reviewer: [id number] - Caleb Trinidad Notice Issued Date-Time: 08/01/2018 11:30 Notice Type: IM Discharge Notice Notice Delivered To: Patient Relationship to Patient: Die Keeper Name: Delivery Method: HAND - Hand Delivered Christiana Days: Prior Verbal Notification: Recipient Understood Notice: Yes Recipient Signature: Yes Med Rec Note Co-signed by Attending: Coverage Notice Comment: Last DP export: 08/02/18 2:42 p Patient Name: IKER LOWE Page [phone] at 1105 All edits/amendments must be made on the electronic document DICTATION DATE: 08/03/181104 PIPELINE DISPATCH OPERATOR: HINA 08/03/18 110 RPT#: [id number] DC DATE: STATUS: ADM IN [facility] [address] [place] [address] END OF REPORT
[2018-08-03] MEDS ORDERED: FLOMAX0.4 MG PO (11:29)
[2018-08-03] MEDS ORDERED: COLACE100 MG PO (11:31)
[2018-08-03] MEDS ORDERED: MIRALAX17 GM PO (11:31)
[2018-08-03] MEDS ORDERED: PROTONIX40 MG PO (11:32)
[2018-08-03 11:39] VITALS: BP 129/72
[2018-08-03 14:09] LABS: INR 1.46 (0.85-1.17); PROTIME 17.1 SECONDS (11.6-15.0)
--- NOTE | 2018-08-03 14:39 | NUR ---
CALLED AND SPOKE TO JORGE LUIS MANNING AT DR MCKEON OFFICE, EXPLAINED THE PATIENTS CONCERN ABOUT THE COUMADIN DOSE ORDERED FOR DISCHARGE, REPORTED THE CURRENT PT/INR RESULTS, AND AWAITING A RETURN CALL
--- NOTE | 2018-08-03 14:44 | NUR ---
JORGE LUIS MANNING FROM DR ALEMAN RETURNED THE CALL AND GAVE VERBAL ORDER TO CONTINUE WITH THE CURRENT DISCHARGE MEDICATION DOSE FOR COUMADIN, 5 MG THREE DAYS A WEEK AND 6 MG THE OTHER 4 DAYS. WILL FOLLOW PT/INR IN REHAB WITH DAILY LAB DRAWS
--- NOTE | 2018-08-03 14:49 | NUR ---
WENT TO NOTIFY THE PATIENT AND HIS SPOUSE OF THE CONVERSATION WITH THE FISH FLIPPER NURSE, KRERI. PATIENT STATES UNDERSTANDING. SPOUSE WAS SITTING IN THE BEDSIDE CHAIR TALKING ON HER CELL PHONE
--- NOTE | 2018-08-03 15:20 | NUR ---
REMOVED THE PATIENTS IV FROM THE RIGHT HAND, CATH TIP IN TACT. VOLUNTEERS COMING TO GET THE PATIENT AND HIS BELONGINGS. CALLED REPORT TO JORGE LUIS UFNES IN REHAB
--- NOTE | 2018-08-03 15:40 | MORECARE ---
CASE MANAGEMENT DISCHARGE SUMMARY PATIENT: IKER LOWE UNIT: [id number] ADM DATE: 07/26/18 AGE: 58 : [birth year] SEX: M ROOM/BED: D.2108 AUTHOR: GARRICKDOC PHYSICIAN: REFERRING PHYSICIAN: ROSELIA QUEVEDO MD DATE OF SERVICE: 08/03/18 Discharge Plan Patient Name: IKER LOWE Facility: [facility]:[place] : 1960 Planned Disposition: Inpatient Rehab Anticipated Discharge Date: 08/03/18 Discharge Date: Expected LOS: 8 Initial Reviewer: [id number] Initial Review Date: 07/28/2018 Generated: 08/03/18 4:40 pm Comments DCP- Discharge Planning Updated by [id number]: Caleb Trinidad on 08/01/18 3:[address] Patient Name: IKER LOWE Encounter No: [id number] : 1960 Primary Insurance: MEDICARE A & B Anticipated DC Date: Planned Disposition: INPATIENT REHAB External Planned Provider: [facility] INPATIENT REHAB DCP follow-up note: CM REVIEWED CHART, DOCTORS NOTE INDICATES PT MAY NEED REHAB. CM MET WITH PT IN ROOM TO DISCUSS REHAB OPTIONS. PT REPORTS THAT HE AND HIS ARE CONSIDERING OUTPATIENT REHAB AT [facility] IN [place], [place]. THEY WILL DISCUSS PT STAYING HERE FOR REHAB AT [facility] TODAY AND LET CM KNOW IF THEY WOULD LIKE CONSIDERATION FOR REHAB AT [facility]. CM RECEIVED CALL FROM GRISELDA OF INPATIENT REHAB, NOTIFIED HER OF PT AND CONSIDERING REHAB AT [facility]. IMPORTANT MESSAGE FROM MEDICARE PROVIDED AND EXPLAINED. CM WAITING PT AND SPOUSE DECISION REGARDING REHAB. Caleb Trinidad, CASE MANAGEMENT Appended by Caleb Trinidad on 08/01/2018 16:58 CDT: CM SPOKE TO PT AND SPOUSE IN ROOM, BOTH IN AGREEMENT WITH DISCHARGE TO INPATIENT REHAB AT [facility]. SPOUSE REQUESTED PRIVATE ROOM, CM EXPLAINED THAT THEY ONLY HAVE TWO PRIVATE ROOMS AND THOSE ARE USUALLY RESERVED FOR ISOLATION PATIENTS. PT'S SPOUSE REPORTS UNDERSTANDING, STILL WANTS INPATIENT REHAB AT [facility], EVEN IF ROOM IS SEMI PRIVATE. CM CALLED AND NOTIFIED SAMUEL OF INPATIENT REHAB WHO INFORMED CM THAT THEY WOULD LIKE TO ACCEPT WHEN PT IS STABLE FOR DISCHARGE. WHEN DISCHARGE IS RECEIVED, NOTIFY [facility] WHO WILL CONTACT MED 2 NURSE WITH ROOM NUMBER WHEN READY TO ACCEPT PT AND NURSE REPORT. CALEB TRINIDAD, CASE MANAGEMENT DCP- Discharge Planning Updated by [id number]: Cindy Steel on 07/28/18 6:[address] Patient Name: IKER LOWE Admission Status: ER Accout number: [id number] Admission Date: 07-26-2018 : 1960 Admission Diagnosis:ATHSCL HEART DISEASE OF [place] CORONARY ARTERY W/O ANG Attending: ROSELIA QUEVEDO Current LOS: 2 Anticipated DC Date: Planned Disposition: Home Primary Insurance: MEDICARE A & B Discharge Planning Comments: CM met with patient and spouse (Aracelis) at bedside after explaining CM role and obtaining verbal consent. Patient lives at home with his Aracelis and plans to return there upon discharge. Patient feels this would be a safe discharge. Patient states he has Home 02 and portable, CPAP, and nebulizer. CM discussed availability / needs of home health and medical equipment. Patient denies any discharge needs at this time. Patient states he will have his drive him home upon discharge. CM will continue to follow and assist as needed with discharge planning / needs. Electric Solderer: Cindy Steel DCPIA - Discharge Planning Initial Assessment Updated by [id number]: Cindy Steel on 07/28/18 7:50 pm * Is the patient Alert and Oriented? Yes * How many steps to enter\exit or inside your home? * PCP MADELEINE JARA [facility] [place] * Pharmacy [facility] * Preadmission Environment Home with Family * ADLs Independent * Other Equipment 02 HOME/ PORTABLE, CPAP, NEBULIZER * List name and contact numbers for known caregivers / representatives who currently or will assist patient after discharge: ARACELIS LOWE - SPOUSE- [phone] * Verbal permission to speak to the caregivers and representatives has been obtained from the patient. Yes * Community resources currently utilized None * Additional services required to return to the preadmission environment? No * Can the patient safely return to the preadmission environment? Yes * Has this patient been hospitalized within the prior 30 days at any hospital? Yes Coverage Notice Reviewer: [id number] - Caleb Trinidad Notice Issued Date-Time: 08/01/2018 11:30 Notice Type: IM Discharge Notice Notice Delivered To: Patient Relationship to Patient: Insight Leader Name: Delivery Method: HAND - Hand Delivered Christiana Days: Prior Verbal Notification: Recipient Understood Notice: Yes Recipient Signature: Yes Med Rec Note Co-signed by Attending: Coverage Notice Comment: Last DP export: 08/03/18 10:05 a Patient Name: IKER LOWE Page [id number] at 1540 All edits/amendments must be made on the electronic document DICTATION DATE: 08/03/181539 INSPECTOR POISING: HINA 08/03/18 1540 RPT#: [id number] DC DATE: STATUS: ADM IN [facility] [address] [place] [address] END OF REPORT
--- NOTE | 2018-08-03 15:41 | NUR ---
CALLED AND REPORTED TO SHANTEL IN REHAB OF THE PATIENTS CONCERNS OF NOT HAVING THE DIALUDID CONTINUED IN REHAB, SHE WILL FOLLOW UP ON THIS
--- NOTE | 2018-08-03 15:59 | NUR ---
VOLUNTEER STILL HAS NOT SHOWED TO ASSIST PT TO REHAB
== END 2018-08-03 16:24 | DRG 250 ==
LOC: D.ER 13:25 → D.M2 15:51 → OBSVTIME 16:01 → D.CVICU 07-26 14:45 → D.M2 07-26 14:45 → D.CVICU 07-27 14:39 → D.M2 07-31 15:23
PROVIDERS: Family Medicine; Internal Medicine Cardiovascular Disease; Internal Medicine Interventional Cardiology; ADMIT Internal Medicine Nephrology; ATTEND Internal Medicine Nephrology
PROC: B2151ZZ Fluoroscopy of Left Heart using Low Osmolar Contrast (ICD-10-PCS; 2018-07-27)
PROC: 4A023N7 Measurement of Cardiac Sampling and Pressure, Left Heart, Percutaneous Approach (ICD-10-PCS; 2018-07-27)
PROC: B2111ZZ Fluoroscopy of Multiple Coronary Arteries using Low Osmolar Contrast (ICD-10-PCS; 2018-07-27)
PROC: 02703ZZ Dilation of Coronary Artery, One Artery, Percutaneous Approach (ICD-10-PCS; principal; 2018-07-27 12:00)
PROC: B240ZZ3 Ultrasonography of Single Coronary Artery, Intravascular (ICD-10-PCS; 2018-07-27 12:00)
DX: I25.10 Atherosclerotic heart disease of native coronary artery without angina pectoris (principal); N17.0 Acute kidney failure with tubular necrosis; S36.892A Contusion of other intra-abdominal organs, initial encounter; T82.855A Stenosis of coronary artery stent, initial encounter; I97.610 Postprocedural hemorrhage of a circulatory system organ or structure following a cardiac catheterization; I10 Essential (primary) hypertension; G62.9 Polyneuropathy, unspecified; J44.9 Chronic obstructive pulmonary disease, unspecified; Z79.01 Long term (current) use of anticoagulants; Z95.1 Presence of aortocoronary bypass graft; Z95.5 Presence of coronary angioplasty implant and graft

== ENCOUNTER 2018-08-03 16:34 | Inpatient (IN) | payer MEDICARE ==
[~2018-08-03] VITALS: Ht 177.8 cm; Wt 97.8 kg
--- NOTE | 2018-08-03 16:30 | NUR ---
RECEIVED PT TO FLOOR VIA W/C ACCOMPANIED BY HOSPITAL STAFF AND ANSELMO. ORIENTED TO ROOM, BATHROOM, AND CALL LIGHT/REMOTE FUNCTIONS. NO NEEDS VOICED AT THIS TIME. C/O ABDOMINAL PAIN LAST MEDICATION GIVEN AT 1520 BEFORE COMING TO FLOOR, ADVISED NEXT PAIN MEDICATION IS AT 2100 SCHEDULED NORCO 10/325 MG. CONTINUES ON 2L VIA NC. CALL LIGHT WITHIN REACH, FALL PRECAUTIONS IN PLACE. WILL CONTINUE TO MONITOR
[~2018-08-03 16:34] MED LIST changes: +COLACE100 MG PO; +COUMADIN6 MG PO; +FLOMAX0.4 MG PO; +MIRALAX17 GM PO; +PROTONIX40 MG PO
[2018-08-03 17:43] VITALS: BP 132/90; BMI 32.9
[2018-08-03 18:19] LABS: ANION GAP 9.8 mmol/L (8-16); CARBON DIOXIDE 32.2 mmol/L (21.0-32.0)
--- NOTE | 2018-08-03 19:20 | NUR ---
PT LYING IN BED WATCHING TV. CALL LIGHT IN REACH. IN ROOM. DENIES NEEDS AT THIS TIME. BED IN LOW. SIDE RAILS X2. A/O X4. LUNGS DIMINISHED FROM HX OF COPD. O2 ON 2L. ABD DISTENDED AND FIRM. ON TELEMETRY. ASSESSMENT COMPLETED. TM
--- NOTE | 2018-08-03 20:11 | NUR ---
DR. LAWRENCE NOTIFIED AND REVIEWED PATIENTS BEHAVIOR AND ASSESSMENT RESULTS. PATIENT IS A LOW RISK PER DR. LAWRENCE. DR. LAWRENCE STATED TO GIVE RESOURCES TO PATIENT AT THE TIME OF DISCHARGE. NO FURTHER ORDERS AT THIS TIME. RESOURCES REVIEWED WITH PATIENT AND HE VERBALIZED UNDERSTANDING.
[2018-08-03 20:12] VITALS: BP 139/89
--- NOTE | 2018-08-03 22:02 | NUR ---
PT COMPLAININ OF PAIN AFTER PAIN MEDICINE WAS ADMINISTERED. LEFT MESSAGE FOR ON PHONE. PT WAS ON DILAUDID AND NORCO 10 Q4H ON MED 2 AND TRAMADOL. PT STATED IT IS GETTING WORSE. WILL CONTINUE TO MONITOR.
--- NOTE | 2018-08-03 23:02 | NUR ---
RECIEVED TELEPHONE ORDER FROM YAYO BOO APRN FOR ONE TIME DOSE OF DILAUDID 1MG IV TO RELIEVE PAIN FOR THE NIGHT UNTIL DR. GOMEZ GETS TO UNIT IN THE AM. IV STARTED IN RIGHT HAND 22 GUAGE. DENIES FURTHER NEEDS. CL IN REACH. WCTM
--- NOTE | 2018-08-04 00:30 | NUR ---
PT RESTING QUIETLY. CALL LIGHT IN REACH. IN ROOM. NO DISTRESS NOTED. WCTM
--- NOTE | 2018-08-04 03:15 | NUR ---
PT RESTING QUIETLY. CALL LIGHT IN REACH. NO DISTRES NOTED. RESP EVEN AND UNLABORED. CPOC
[2018-08-04 05:54] LABS: BASOPHILS 0.4 % (0-2); EOSINOPHILS 6.5 % (0-7); HEMOGLOBIN 10.5 g/dL (13.5-17.5); IMMATURE GRANULOCYTES 0.6 % (0-5); LYMPHOCYTES 14.7 % (15-50); MCH 29.2 pg (26.0-34.0); MCHC 32.8 g/dL (31.0-37.0); MCV 89.1 fL (80.0-100.0); MEAN PLATELET VOLUME 8.5 fL (7.4-10.4); MONOCYTES 14.5 % (2-11); NEUTROPHILS 63.3 % (40-80); PLATELET COUNT 218 10x3/uL (130-400); RBC 3.59 10x6/uL (4.20-6.10); RDW 13.4 % (11.5-14.5); WBC 7.1 10x3/uL (4.8-10.8)
[2018-08-04 06:12] LABS: CALC OSMOLALITY 274 mosm/kg (275-300); CALCIUM 8.8 mg/dL (8.5-10.1); CARBON DIOXIDE 33.7 mmol/L (21.0-32.0); CHLORIDE - SERUM 101 mmol/L (98-107); GLUCOSE 113 mg/dL (74-106); POTASSIUM - SERUM 4.2 mmol/L (3.5-5.1); SODIUM 137 mmol/L (136-145); UREA NITROGEN 13 mg/dL (7-18); eGFR NON AFRICAN AMERICAN 82 mL/min (90-120)
[2018-08-04 06:18] LABS: INR 1.66 (0.85-1.17)
[2018-08-04 08:12] VITALS: BP 122/79
--- NOTE | 2018-08-04 08:30 | NUR ---
SITTING UP FOR BREAKFAST IN ROOM. IN ROOM WITH PT. ABD DISTENDED. C/O PAINFUL AREAS TO ABD. DENIES SOB
--- NOTE | 2018-08-04 12:04 | NUR ---
PATIENT ADMITTED TO REHAB FROM ACUTE FLOOR. PATIENT RESIDES IN [facility] AND WILL DISCHARGE BACK THERE WITH HIS SPOUSE. HIS PCP IS DR. MADELEINE JARA. DME AT HOME IS PORTABLE O2 AND HOME O2, C-PAP AND NEBULIZER. WILL CONTINUE TO FOLLOW WITH PATIENT.
[2018-08-04 12:18] VITALS: Ht 177.8 cm; Wt 97.8 kg
--- NOTE | 2018-08-04 16:57 | NUR ---
SITTING UP IN BED WATCHING TV. SIGNED BED WAIVER. ABD STILL DISTENDED. CALL LIGHT IN REACH
--- NOTE | 2018-08-04 19:15 | NUR ---
PT IS RESTING IN BED WITH EYES OPEN. ALERT AND ORIENTED X 3. DENEIS ACUTE DISCOMFORT AT THIS TIME. NO NEEDS VOICED. SR'S ARE UP X 2 IN BED. CALL LIGHT AND BEDSIDE TABLE ARE WITHIN EASY REACH.
[2018-08-04 21:25] VITALS: BP 154/78
--- NOTE | 2018-08-05 00:01 | NUR ---
PT IS RESTING QUIETLY IN BED WITH EYES CLOSED. RESPS ARE EVEN AND UNLABORED. NO ACUTE DISTRESS NOTED.
--- NOTE | 2018-08-05 03:16 | NUR ---
PT IN BED LOWEST POSITION, EYES CLOSED AROUSES EASILY TO VOICE, RESPIRATIONS EVEN AND UNLABORED, NO NEEDS NOTED, FLUIDS AND CALL LIGHT WITHIN REACH.
--- NOTE | 2018-08-05 05:36 | NUR ---
PT AWOKE EASILY TO VERBAL STIMULI. NO NEEDS VOICED. DAILY WT DONE.
[2018-08-05 06:38] LABS: BASOPHILS 0.5 % (0-2); EOSINOPHILS 7.2 % (0-7); HEMATOCRIT 32.8 % (42.0-54.0); IMMATURE GRANULOCYTES 1.1 % (0-5); LYMPHOCYTES 16.9 % (15-50); MCH 29.6 pg (26.0-34.0); MCHC 33.5 g/dL (31.0-37.0); MCV 88.4 fL (80.0-100.0); MEAN PLATELET VOLUME 8.8 fL (7.4-10.4); MONOCYTES 10.9 % (2-11); NEUTROPHILS 63.4 % (40-80); PLATELET COUNT 249 10x3/uL (130-400); RBC 3.71 10x6/uL (4.20-6.10); RDW 13.6 % (11.5-14.5); WBC 6.2 10x3/uL (4.8-10.8)
[2018-08-05 06:41] LABS: INR 1.8 (0.85-1.17); PROTIME 20.2 SECONDS (11.6-15.0)
[2018-08-05 06:45] LABS: ANION GAP 9.6 mmol/L (8-16); CALCIUM 8.7 mg/dL (8.5-10.1); CARBON DIOXIDE 30.8 mmol/L (21.0-32.0); CREATININE - SERUM 1.1 mg/dL (0.6-1.3); POTASSIUM - SERUM 4.4 mmol/L (3.5-5.1)
[2018-08-05 08:00] VITALS: BP 138/92
--- NOTE | 2018-08-05 12:24 | NUR ---
SITTING UP EATING LUNCH. STATES PAIN LEVEL IMPROVED. CALL LIGHT IN REACH
--- NOTE | 2018-08-05 19:15 | NUR ---
PT IS RESTING IN HIS ROOM WITH EYES OPEN. ALERT AND ORIENTED X 3 AT THIS TIME. NO ACUTE DISTRESS NOTED. NO COMPLAINT VOICED. SR'S ARE UP X 2 IN BED. CALL LIGHT AND BEDSIDE TABLE ARE WITHIN EASY REACH.
--- NOTE | 2018-08-05 21:41 | NUR ---
PT SHOWERED INDEPENDENTLY. NO FURTHER NEEDS VOICED.
--- NOTE | 2018-08-06 02:05 | NUR ---
I have reviewed this patient and I concur with the Shift Assessment completed by the Licensed Practical Nurse today this shift.
--- NOTE | 2018-08-06 05:42 | NUR ---
PT IS RESTING QUIETLY IN BED WITH EYES OPEN. NO NEEDS VOICED. DAILY WT DONE.
[2018-08-06 08:00] VITALS: BP 135/95
--- NOTE | 2018-08-06 08:00 | NUR ---
PLAN FOR DC HOME TODAY.BREAKFAST GIVEN.CL IN REACH,
[2018-08-06 08:35] LABS: INR 1.76 (0.85-1.17); PROTIME 19.9 SECONDS (11.6-15.0)
--- NOTE | 2018-08-06 12:00 | NUR ---
DR.ERWIN CAMEJO.
--- NOTE | 2018-08-06 13:15 | NUR ---
OUT ON THERAPEUTIC PASS WITH FAMILY.
--- NOTE | 2018-08-06 14:30 | NUR ---
RETURNED OFF OF THERAPEUTIC PASS.STATED WAS VERY TIRING BUT CATHY WELL.
[2018-08-06 19:30] VITALS: BP 145/94
--- NOTE | 2018-08-06 19:30 | NUR ---
GREETED PATIENT AND INTRODUCED MYSELF. PATIENT IS LAYING IN BED IN SUPINE POSITION. RESPIRATIONS EVEN. NO S/S OF DISTRESS. DENIES ANY NEEDS AT THIS TIME. CALL LIGHT IN REACH.
--- NOTE | 2018-08-07 01:48 | NUR ---
PATIENT RESTING QUIETLY WITH EYES CLOSED. RESPIRATIONS EVEN. NO S/S OF DISTRESS. SR UP X 2. BED IN LOWEST POSITION. CALL LIGHT IN REACH.
[2018-08-07 06:37] LABS: INR 1.9 (0.85-1.17); PROTIME 21.2 SECONDS (11.6-15.0)
[2018-08-07 08:00] VITALS: BP 130/90
--- NOTE | 2018-08-07 08:00 | NUR ---
SHIFT ASSMT COMPLETED.DENIES NEEDS.INDEPENDENT IN ROOM.BREAKFAST TRAY GIVEN.
--- NOTE | 2018-08-07 16:00 | NUR ---
AMBULATING IN HALLS.DENIES NEEDS.
[2018-08-07 19:30] VITALS: BP 128/84
--- NOTE | 2018-08-07 19:30 | NUR ---
GREETED PATIENT AND INTRODUCED MYSELF. DC'D PERIPHERAL SALINE LOCKED IV IN RT. HAND WITH TIP INTACT. PATIENT STATES THAT HIS PAIN IS 4/10 BUT IS REFUSING TO TAKE PAIN MEDICATION AT THIS TIME. VITAL SIGNS OBTAINED. CALL LIGHT IN REACH.
--- NOTE | 2018-08-08 02:57 | NUR ---
PATIENT RESTING QUIETLY WITH EYES CLOSED. RESPIRATIONS EVEN. NO S/S OF DISTRESS. SR UP X 2. BED IN LOWEST POSITION. CALL LIGHT IN REACH.
[2018-08-08 06:56] LABS: BASOPHILS 0.3 % (0-2); EOSINOPHILS 4.9 % (0-7); HEMATOCRIT 36.9 % (42.0-54.0); HEMOGLOBIN 12.3 g/dL (13.5-17.5); IMMATURE GRANULOCYTES 1.3 % (0-5); MCH 29.4 pg (26.0-34.0); MCHC 33.3 g/dL (31.0-37.0); MCV 88.3 fL (80.0-100.0); MEAN PLATELET VOLUME 8.3 fL (7.4-10.4); MONOCYTES 10.3 % (2-11); NEUTROPHILS 65.2 % (40-80); RBC 4.18 10x6/uL (4.20-6.10); RDW 13.7 % (11.5-14.5); WBC 10.6 10x3/uL (4.8-10.8)
[2018-08-08 06:58] LABS: PLATELET COUNT 317 10x3/uL (130-400)
[2018-08-08 07:02] LABS: ANION GAP 11.9 mmol/L (8-16); CALCIUM 9.3 mg/dL (8.5-10.1); CARBON DIOXIDE 30.3 mmol/L (21.0-32.0); CREATININE - SERUM 1.1 mg/dL (0.6-1.3); POTASSIUM - SERUM 4.2 mmol/L (3.5-5.1)
[2018-08-08 07:12] LABS: INR 2.12 (0.85-1.17)
[2018-08-08 08:00] VITALS: BP 136/78
--- NOTE | 2018-08-08 08:00 | NUR ---
SITTING UP ON SIDE OF BED. DENIES INCREASED PAIN OR SOB. WEARING OXYGEN 2LNC. TELEMETRY DC/D. ABD LESS DISTENDED. HE IS AMBULATORY AND ANXIOUS TO DC HOME.
[2018-08-08] MEDS ORDERED: PERCOCET 10-321 EAC1 PO (08:31)
--- NOTE | 2018-08-08 08:32 | RHP ---
PATIENT: IKER LOWE MEDICAL RECORD: [id number] ACCOUNT: [id number] LOCATION:[facility]18 : 64 ADMISSION DATE: 08/03/18 REHABILITATION HISTORY AND PHYSICAL EXAMINATION POST ADMISSION PHYSICIAN EXAMINATION DATE OF ADMISSION: 08/03/2018 ADMITTING DIAGNOSIS: Disuse myopathy. HISTORY OF PRESENT ILLNESS: The patient is a gentleman admitted secondary to disuse myopathy. He is a 58-year-old gentleman who presented to ED with substernal chest pain, increased shortness of breath on exertion. He had a heart catheterization on 06/30/2018 and a PTCA to his left anterior descending. His chest pain was relieved by nitro. He went to the acute hospital. He was seen by cardiology. He did end up having a PTCA of his left anterior descending. On 07/27/2018, they had rapid response. The patient was bleeding profusely from his right groin and blood pressure dropped to the 80s. He had a left retroperitoneal hematoma. He was transferred to the CV ICU. He had multiple units of blood during his acute stay. He has been transferred back to acute floor from the ICU with increased amount of pain, requiring IV pain management. He has got a history of coronary artery disease, coronary artery bypass grafting, mechanical valve, COPD, neuropathy. He is requiring telemetry, IV pain control, supplemental O2, monitoring of his PT and INR closely. Also, he has required blood. He has got deconditioning, debility, impaired mobility, gait disturbance, proximal muscle weakness. He is a risk for falls, has self-care deficits. These are all barriers to his discharge home. Lives at home with his , was independent with his mobility and ADLs prior to this. He is currently setup for mod assist for ADLs and mod assist to total assist for mobility. He and his would like for him to return home at his prior level of functioning or possibly better if possible. COMORBIDITIES: In this patient include coronary artery disease with stent placement, valvular heart disease, hypertension, neuropathy, acute kidney injury, large iatrogenic retroperitoneal hematoma, postoperative blood loss anemia, acute pain and leukocytosis. PAST MEDICAL HISTORY: Significant for hypertension, hyperlipidemia, neuropathy, coronary artery disease, mechanical valve replacement, COPD. PAST SURGICAL HISTORY: Includes angioplasty, coronary artery bypass grafting, hernia times 2. He has had a craniotomy, neck repair, shoulder repair and mechanical valve. ALLERGIES: IV DYE, IV CONTRAST AND SULFA. CURRENT MEDICATIONS: Include warfarin, he is on 5 mg Wednesday, Wednesday, Wednesday, Wednesday; he is on 6 mg on Wednesday, Wednesday, ; Percocet 10/325 one tab every 6 hours p.r.n.; he is on Flomax 0.4 mg daily; Plavix 75 mg daily; metoprolol 75 mg b.i.d.; Neurontin 900 mg t.i.d.; Cymbalta 60 mg at bedtime; Colace 200 mg b.i.d.; Advair 2 puffs b.i.d.; polyethylene glycol 17 grams in 8 ounce of water daily and Xanax 0.5 mg t.i.d. p.r.n. HABITS: No alcohol or tobacco use. HISTORY AND PHYSICAL [id number] IKER LOWE FAMILY HISTORY: Noncontributory. SOCIAL HISTORY: The patient hopes to return back with his and get back to his prior level of functioning. REVIEW OF SYSTEMS: GENERAL: He does complain of some weakness and fatigue. HEENT: Denies cold, cough, or congestion. CARDIOVASCULAR: He denies chest pain. PHYSICAL EXAMINATION: VITAL SIGNS: Stable, afebrile. GENERAL: A well-developed gentleman in no acute distress, alert upon exam. HEENT: Normocephalic and atraumatic. Mucosa moist. NECK: Supple. No lymphadenopathy. LUNGS: Clear at this time. HEART: Regular rate and rhythm. No murmurs, rubs or gallops. ABDOMEN: Soft, benign and nontender, nondistended. Positive bowel sounds times 4. EXTREMITIES: No clubbing, cyanosis or edema. NEUROLOGIC: He does have noted weakness. LABORATORY DATA: White count is 7.1, H&H of 10 and 32 and platelet count is noted to be 218. His sodium is 137, potassium 4.2, BUN and creatinine of 13 and 1.0 and blood sugar is noted to be 113. ASSESSMENT: This is a 58-year-old gentleman admitted to the rehab with a working diagnosis of disuse myopathy secondary to a complicated stay in the hospital. The patient has potential to make improvement. We instituted the following multidisciplinary therapies include, but not limited to physical, occupational, respiratory, speech, nutritional services, prosthetics and orthotics. Given his complex medical condition and risk for more complications, rehabilitation services cannot be provided at a low level of care such as skilled nurse facility. PLAN: 1. 1. Admit to [facility] for intensive inpatient therapy to include the following disciplines; A. Physical therapy to improve gait, all transfer skills and bed mobility to a modified independent level. B. Occupational therapy to a modified independent level. C. Case management to assist with discharge planning and placement options. D. Nutrition to assist with nutritional needs. E. Rehabilitation nursing to assist in monitoring the patient's underlying medical conditions and to assist with any type of bowel or bladder management. 2. The patient's current medication and medical care will be continued. 3. The patient will be placed on standard fall precautions. 4. The patient's estimated length of stay is approximately 7-10 days. 5. We will discuss this patient during care team staff meeting this week. TRANSINT:[id number] Voice Confirmation ID: [id number] DOCUMENT ID: [id number] JONATAN notes whether there has been none or any medical/functional change since admission: HISTORY AND PHYSICAL [id number] IKER LOWE - No change since prescreen. JONATAN attests patient continues to be appropriate for IRF: - COntinues to be appropriate. VINAY GOMEZ MD at 0832 CC: [id number] DICTATION DATE: 08/04/18926 CHARTING CLERK: 08/04/18 1036 ADM IN [facility] [address] [place] [address]
--- NOTE | 2018-08-08 10:01 | NUR ---
PATIENT DISCHARGING HOME TODAY WITH SPOUSE. PATIENT DECLINES HOME HEALTH AND ANY NEW DME NEEDS AT THIS TIME. DR. MADELEINE JARA 09/05/18 @ 8:15. PATIENT CHOICE FORM AND IMFM FORMS SIGNED, COPY GIVEN TO PATIENT AND FORM FAXED TO MEDICAL RECORDS FOR PATIENT AND FILED IN CHART. DSICHARGE INSTRUCTIONS WITH [employer] SENT WITH PATIENT FOR FOLLOW WUP APPOINTMENT.
--- NOTE | 2018-08-08 10:08 | NUR ---
PATIENT INSTRUCTED TO GO TO DR. ESTEFANI KANG FOR PROTIME.
--- NOTE | 2018-08-08 10:51 | NUR ---
DC HOME WITH . TOOK ALL PERSONAL ITEMS WITH HIM. REVIEWED MEDS, FOLLOW UP APPTS AND DC PLAN WITH PT AND . DENIED NEEDING ANY MEDS CALLED IN. DR GOMEZ WROTE HARD SCRIPT FOR PAIN MEDS WHICH WAS GIVEN TO PT.
== END 2018-08-08 12:02 | disposition home or self-care (01) | DRG 91 ==
LOC: D.REHAB 16:34
PROVIDERS: ADMIT Emergency Medicine; ATTEND Emergency Medicine
DX: G72.89 Other specified myopathies (principal); K66.1 Hemoperitoneum; N17.0 Acute kidney failure with tubular necrosis; D62 Acute posthemorrhagic anemia; I25.10 Atherosclerotic heart disease of native coronary artery without angina pectoris; I10 Essential (primary) hypertension; Z95.5 Presence of coronary angioplasty implant and graft; G62.9 Polyneuropathy, unspecified; D72.829 Elevated white blood cell count, unspecified; J44.9 Chronic obstructive pulmonary disease, unspecified; Z95.2 Presence of prosthetic heart valve; R52 Pain, unspecified

== ENCOUNTER 2019-03-22 13:57 | Inpatient (IN) | payer MEDICARE ==
[~2019-03-22] VITALS: Ht 177.8 cm; Wt 99.3 kg
--- NOTE | ~2019-03-22 | HEMODYNAMI ---
PATIENT:IKER LOWE MEDICAL RECORD: [id number] : 64 LOCATION[id number] ADMISSION DATE: 03/24/19 Generatedon:03/27/201911:34 Patient name: IKER LOWE Patient #: [id number] SSN: [id number] : 1960 Date of study: 03/27/2019 Page: Of Hemodynamic Procedure Report Patient Data Patient Demographics Procedure consent was obtained First Name: IKER Gender: Male Last Name: MYNOR : 1960 Middle Initial: VALERIA Age: 58 year(s) Patient #: [id number] Race: SSN: [id number] Additional ID: [id number] Contact details Address: [address] [place] [address] State: [place] City: [place] Zip code: [address] Past Medical History Allergies Allergen Reaction Date Comments Reported Other allergy 12/22/2016 Iodine, Sulfa Other allergy 06/30/2018 Sulfa, Idodinated Contrast Other allergy 07/27/2018 CONTRAST, SULFA IV contrast dye 03/27/2019 Other allergy 03/27/2019 Iodinated contrast media; Other allergy 03/27/2019 sulfa, merperidine Admission Admission Data Admission Date: 03/24/2019 Admission Time: 15:27 Admit Source: Other Insurance Payor: Medicare Room #: D.2114 Height (in.): 70.08 BSA: 2.15 (m2) Height (cm.): 178 BMI: 30.61 (kg/m2) Weight (lbs.): 213.85 Weight (kg.): 97 Current Diagnosis Diagnosis Description Unstable angina Lab Results Lab Result Date: 03/27/2019 Lab Result Time: 0:00 Biochemistry Name Units Result Min Max Creatinine mg/dl 1.1 --(--*-)-- 0.6 1.3 eGFR ml/min 73.96480 *-(----)-- 90 120 AM CBC Name Units Result Min Max Hematocrit % 44.3 --(*---)-- 42 54 Hemoglobin g/dl 14.9 --(-*--)-- 13.5 17.5 Procedure Procedure Types Cath Procedure Diagnostic Procedure [facility] w/Coronaries w/Grafts Sedation Charges Moderate Sedation up to 45 minutes PCI Procedure Coronary Stent Coronary Stent Initial Coronary Atherectomy Atherectomy w/Stent Coronary Initial Hemochron ACT Test Procedure Description Procedure Date Procedure Date: 03/27/2019 Procedure Start Time: 10:38 Procedure End Time: 11:31 Procedure Staff Name Function Inge Dunn RN Rn Otolaryngology Lidia iMemories RT Monitor Lidia iMemories RT Scrub Kristian Goodrich MD Performing Physician Cindy Richmond RN Nurse Alberto Simmons MD Performing Physician Alberto Simmons MD Assisting physician Procedure Data Cath Procedure Fluoroscopy Diagnostic fluoroscopy Total fluoroscopy Time: 0 time: 0 min min Diagnostic fluoroscopy Total fluoroscopy dose: dose: 1051 mGy 1051 mGy Contrast Material Contrast Material Type Amount (ml) Isovue 300 166 Entry Location Entry Primary Successful Side Size Upsize Upsize Entry Closure Succes sful Closure Location (Fr) 1 (Fr) 2 (Fr) Remarks Device Remarks Femoral Right 5 Fr Exoseal artery Femoral Right 6 Fr artery Short Estimated blood loss: 10 ml Diagnostic catheters Device Type Used For End Catheter Placement MULTIPACK JL 4.0 5Fr Procedure catheter DIAGNOSTIC AR MOD 5Fr Procedure Catheter ([id number]) MULTIPACK Pigtail 5 Fr Procedure catheter Procedure Complications No complications Procedure Medications Medication Administration Route Dosage Oxygen etCO2 Nasal cannula 2 l/min Lidocaine 2% added to field 20 Heparin Flush Bag added to field 2 bags (1000units/500ml NS) 0.9% NaCl I.V. 100 ml/hr Versed I.V. 2 mg Fentanyl I.V. 100 mcg Versed I.V. 2 mg Fentanyl I.V. 100 mcg Versed I.V. 2 mg Heparin Bolus I.V. 5000 units Nitroglycerin IC/IA I.C. 250 mcg Cardene I.C. 300 mcg Fentanyl I.V. 50 mcg Lopressor I.V. 5 mg Hemodynamics Rest BSA: 2.15 (m2) HGB: 14.9 (g/dl) O2 Consumption: Estimated: 272.47 (ml/min) O2 Co nsumption indexed: Estimated:126.73 (ml/min/m) Heart Rate: 92 (bpm) Snapshots Pre Cath Intra NCS Post Cath Vital Signs Time Heart Resp SPO2 etCO2 NIBP (mmHg) Rhythm Pain Sedation Rate (ipm) (%) (mmHg) Status Level (bpm) 10:31:07 94 39 93 0 133/98(114) NSR 0 (11) 10(A) , No pain 10:35:25 93 14 95 31.4 129/98(111) NSR 0 (11) 10(A) , No pain 10:39:43 93 12 94 36.6 127/91(111) NSR 0 (11) 10(A) , No pain 10:43:59 91 15 94 0 135/94(112) NSR 0 (11) 9(A) , No pain 10:48:17 96 14 92 9.7 133/91(115) NSR 0 (11) 9(A) , No pain 10:52:37 96 15 94 37.3 121/86(103) NSR 0 (11) 9(A) , No pain 10:56:51 97 10 95 37.3 119/89(105) NSR 0 (11) 9(A) , No pain 11:01:07 96 11 94 38.1 125/83(100) NSR 0 (11) 10(A) , No pain 11:05:23 96 12 95 34.3 128/88(114) NSR 0 (11) 9(A) , No pain 11:09:43 97 12 93 34.3 119/78(104) NSR w/ ST 0 (11) 9(A) Elevation , No pain 11:13:55 96 12 94 35.8 127/104(115) NSR w/ ST 0 (11) 9(A) Elevation , No pain 11:18:15 102 14 94 32.1 115/79(96) NSR 0 (11) 9(A) , No pain 11:22:30 97 12 93 36.5 116/81(107) NSR 0 (11) 9(A) , No pain 11:26:43 96 13 94 33.6 129/86(110) NSR 0 (11) 10(A) , No pain 11:30:57 94 11 88 37.3 118/84(102) NSR 0 (11) 10(A) , No pain Medications Time Medication Route Dose Verified Delivered Reason Notes Effectiveness by by 10:33:01 Oxygen etCO2 2 Kristian Buffie used for Nasal l/min Kp Richmond RN procedure cannula 10:33:08 Lidocaine 2% added 20ml Kristian Kristian for local to vial Kp Goodrich MD anesthetic field 10:33:16 Heparin Flush added 2 Kristian Kristian used for Bag to bags Kp Goodrich MD procedure (1000units/500ml field NS) 10:33:25 0.9% NaCl I.V. 100 Kristian Buffie Per physician ml/hr Kp Richmond RN 10:36:03 Versed I.V. 2 mg Kristian Buffie for sedation Kp Richmond RN 10:36:10 Fentanyl I.V. 100 Kristian Buffie for sedation mcg Kp Richmond RN 10:40:18 Versed I.V. 2 mg Kristian Buffie for sedation Kp Richmond RN 10:42:48 Fentanyl I.V. 100 Kristian Buffie for sedation mcg Kp Richmond RN 11:01:06 Versed I.V. 2 mg Kristian Buffie for sedation Kp Richmond RN 11:07:09 Heparin Bolus I.V. 5000 Kristian Buffie for verif ied units Kp Richmond RN anticoagulation with dr simmons 11:13:58 Nitroglycerin I.C. 250 Kristian Alberto for IC/IA mcg Kp Simmons MD vasodilation 11:16:00 Cardene I.C. 300 Kristian Alberto for mcg Kp Simmons MD vasodilation 11:18:27 Fentanyl I.V. 50 Kristian Buffie for sedation mcg Kp Richmond RN 11:25:34 Lopressor I.V. 5 mg Kristian Buffie Per physician Kp Richmond RN Procedure Log Time Note 10:09:21 Informed consent obtained and on chart 10:10:24 Procedure Status Urgent Heart Cath (IP). 10:10:27 Cindy Richmond RN sent for patient. Start room use. 10:10:30 Time tracking: Regular hours (M-F 7:00 - 5:00) 10:10:34 Plan of Care:Hemodynamics will remain stable., Cardiac rhythm will remain stable., Comfort level will be maintained., Respiratory function will remain adequate., Patient/ family verbilizes understanding of procedure., Procedure tolerated without complication., Recovers from procedure without complications.. 10:10:41 H&P Date Dictated: 03/27/2019 Within 30 days and on chart.. 10:15:38 Admit Source: Other 10:15:45 Insurance Payor : Medicare 10:15:51 Patient Height : 70.08 inches 10:15:56 Patient Weight : 213.85 lbs 10:16:01 Current Diagnosis : Unstable angina 10:17:01 Lab Result : eGFR AM 73.69781 ml/min 10:17:01 Lab Result : Hemoglobin 14.9 g/dl 10:17:01 Lab Result : Creatinine 1.1 mg/dl 10:17:01 Lab Result : Hematocrit 44.3 % 10:17:11 Diagnostic Cath Status : Urgent 10:19:53 Stress Test: no; N/A ? 10:19:58 Risk of Mortality: 0.1 10:20:02 Risk of blood transfusion: 1.1 10:20:05 Risk of GRACE: 0.2 10:20:14 ACC Patient presents with Unstable Angina CCS Anginal Class 2--Slight limitation of ordinary activity. 10:20:22 Patient received from Med II to CCL 1 Alert and oriented. Tansferred to table in Supine position. 10:20:24 Warm blankets applied, and analy hugger turned on for patient comfort. 10:20:25 Correct patient and procedure confirmed by team. 10:20:26 ECG and BP/O2 sat monitors applied to patient. 10:20:29 Full Disclosure recording started 10:20:35 Pre-procedure instructions explained to patient. 10:20:36 Pre-op teaching completed and patient verbalized understanding. 10:20:41 Patient NPO since Midnight. 10:21:05 Patient allergic to IV contrast dye 10:21:43 Patient allergic to Other allergyIodinated contrast media; 10:21:50 Is the patient allergic to Iodine/contrast media? Yes. 10:21:51 Was the patient premedicated? Yes 10:22:14 Patient allergic to Other allergysulfa, merperidine 10:22:47 Is patient on blood thinner?Yes 10:23:06 ACC The patient was administered the following blood thiners within the last 24 hours: ACCPlavix 10:23:08 Patient diabetic? No. 10:23:32 Previous problem with sedation/anesthesia? No ? 10:23:36 Snore? Yes 10:23:37 Sleep apnea? Yes 10:23:43 Deviated septum? No 10:23:45 Opens mouth fully? Yes 10:23:46 Sticks out tongue? Yes 10:23:55 Airway obstruction? Yes COPD, ASTHMA, PHTN 10:24:23 Dentures? No ? 10:29:25 Pre procedure: right femoral pulse 2+ Normal; easily identifiable; not easily obliterated 10:29:30 Patient pain scale 0/10 ?. 10:29:36 IV patent on arrival in right hand with 0.9% NaCl at [facility]. 10:29:45 Right groin area was prepped with chlora-prep and draped in sterile fashion 10::47 Alarms reviewed by R. N. 10::47 Sharps counted by scrub and verified by R.N. 10:29:52 Vital chart was started 10:29:54 Baseline sample Acquired. 10:29:59 Rhythm: sinus rhythm 10:32:47 Use device set Femoral Dx 10:32:49 ACIST Syringe (49679) opened to sterile field. 10:32:50 Bag Decanter (2002S) opened to sterile field. 10:32:51 Medline Cath Pack ([id number]) opened to sterile field. 10:32:55 DIAGNOSTIC Multipack 5Fr catheter set ([id number]) opened to sterile field. 10:32:57 ACIST Hand Control (05052) opened to sterile field. 10:32:58 ACIST Manifold (12799) opened to sterile field. 10:33:01 Oxygen 2 l/min etCO2 Nasal cannula was administered by Cindy Richmond RN; used for procedure; Verbal order read back and verified. 10:33:03 SHEATH 5FR Hobgood (IHU630) opened to sterile field. 10:33:04 EMERALD Guide Wire (703-354) opened to sterile field. 10:33:08 Lidocaine 2% 20ml vial added to field was administered by Kristian Goodrich MD; for local anesthetic; Verbal order read back and verified. 10:33:16 Heparin Flush Bag (1000units/500ml NS) 2 bags added to field was administered by Kristian Goodrich MD; used for procedure; Verbal order read back and verified. 10:33:25 0.9% NaCl 100 ml/hr I.V. was administered by Cindy Richmond RN; Per physician; Verbal order read back and verified. 10:35:50 --------ALL STOP TIME OUT------ 10:35:51 Final Timeout: patient, procedure, and site verified with staff and physician. All members of the team are in agreement. 10:35:58 Right groin site verified by team. 10:36:03 Versed 2 mg I.V. was administered by Cindy Richmond RN; for sedation; Verbal order read back and verified. 10:36:05 Fire Safety Assessment: A--An alcohol-based skin anteseptic being used preoperatively., C--Open oxygen or nitrous oxide is being used., D--An ESU, laser, or fiber-optic light is being used. 10:36:10 Fentanyl 100 mcg I.V. was administered by Cindy Richmond RN; for sedation; Verbal order read back and verified. 10:36:12 Physical assessment completed. ASA score P 3 - A patient with severe systemic disease as per Kristian Goodrich MD. 10:36:15 2) 60-89 Mildly reduced kidney function, and other findings (as for stage 1) point to kidney disease. 10:36:19 Maximum allowable contrast dose (3.7 X eGFR X 0.75)203 ml. 10:36:24 Sedation plan: IV Moderate Sedation Medication:Versed, Fentanyl 10:36:51 Procedure started. 10:38:10 Local anesthetic to right femoral artery with Lidocaine 2% by Kristian Goodrich MD.INITIAL ACCESS ONLY 10:40:18 Versed 2 mg I.V. was administered by Cindy Richmond RN; for sedation; Verbal order read back and verified. 10:40:27 A 5 Fr sheath was inserted into the Right Femoral artery 10:41:00 A MULTIPACK JL 4.0 5Fr catheter was advanced over the wire and used for Procedure. 10:41:31 LCA angiography performed. 10:42:15 Catheter exchanged over wire. 10:42:48 Fentanyl 100 mcg I.V. was administered by Cindy Richmond RN; for sedation; Verbal order read back and verified. 10:42:58 A DIAGNOSTIC AR MOD 5Fr Catheter ([id number]) was advanced over the wire and used for Procedure. 10:43:37 RCA angiography performed. 10:44:11 ACCDominant side:Co-Dominant 10:45:04 SVG to Diag angiography performed. 10:45:22 Catheter exchanged over wire. 10:45:41 A MULTIPACK Pigtail 5 Fr catheter was advanced over the wire and used for Procedure. 10:46:17 NO LV PERFORMED OR MEASURED D/T MECHANICAL VALVE REPLACEMENT 10:46:19 Aortic Root visualized 10:46:28 Injector settings: Ml/sec: 15, Volume: 30, 10:47:26 Catheter removed. 10:47:35 Proceeding to intervention. 10:48:12 SHEATH 6FR Hobgood (TBP829) opened to sterile field. 10:48:40 INFLATOR Merit BasixCompak (XL2548) opened to sterile field. 10:48:41 CHOICE PT Extra Support 182cm wire ([id number]) opened to sterile field. 10:48:46 EMERALD Guide Wire (502-993) opened to sterile field. 10:50:23 GUIDE 6FR XBLAD 3.5 catheter ([id number]) opened to sterile field. 10:50:[address] SIMMONS FOR LASER INTERVENTION 11:01:06 Versed 2 mg I.V. was administered by Cindy Richmond RN; for sedation; Verbal order read back and verified. 11:04:48 Physician arrived 11:05:42 DR SIMMONS HAS ARRIVED FOR INTERVENTION 11:05:44 --------ALL STOP TIME OUT------ 11:05:45 Final Timeout: patient, procedure, and site verified with staff and physician. All members of the team are in agreement. 11:06:48 A 6 Fr Short sheath was inserted into the Right Femoral artery 11:07:09 Heparin Bolus 5000 units I.V. was administered by Cindy Richmond RN; for anticoagulation; verified with dr simmons Verbal order read back and verified. 11:07:14 6 Fr XBLAD 3.5 guide catheter was inserted over the wire 11:07:39 ACC Pre-intervention JEFFERY Flow is 3. 11:07:40 Pre PCI Site: [place] mLAD has 80% stenosis. 11:07:47 CHOICE PT ES wire advanced. 11:08:10 Wire advanced across lesion. 11:08:47 LASER ELCA 0.9 Rx atherectomy catheter (729818) opened to sterile field. 11:09:03 Laser pass to mLAD with Fluence of 80 and Rate of 40. 11:10:52 Laser pass to pLAD with Fluence of 80 and Rate of 40. 11:11:05 Laser total pulses delivered: 1999 11:11:12 Laser total treatment time: 0 minutes 50 seconds 11:11:36 Laser catheter removed. 11:12:42 Place stent Inflation Number: 1 A OLGA RX 3.0 x 22 stent ([id number]) was prepped and advanced across the Prox LAD . The stent was deployed at 17 WILLIAMS for 0:00 (min:sec) . 11:12:45 Inflation number: 2 The stent balloon was then re-inflated across the Prox LAD to 21 WILLIAMS for 0:00 (min:sec) . 11:13:[address] ELEVATION 11:13:57 Stent catheter was removed intact over wire. 11:13:58 Nitroglycerin IC/IA 250 mcg I.C. was administered by Alberto Simmons MD; for vasodilation; Verbal order read back and verified. 11:16:00 Cardene 300 mcg I.C. was administered by Alberto Simmons MD; for vasodilation; Verbal order read back and verified. 11:16:15 ST ELEVATION RESOLVED 11:16:44 Inflation number: 3 The stent balloon was then re-inflated across the Prox LAD to 23 WILLIAMS for 0:00 (min:sec) . 11:17:01 Stent catheter was removed intact over wire. 11:17:13 Wire removed. 11:17:26 Guide catheter removed. 11:17:38 GUIDE 6FR AR 2.0 catheter ([id number]) opened to sterile field. 11:18:09 6 Fr AR2 guide catheter was inserted over the wire 11:18:27 Fentanyl 50 mcg I.V. was administered by Cindy Richmond RN; for sedation; Verbal order read back and verified. 11:19:01 CHOICE PT ES wire advanced. 11:19:43 Pre PCI Site: [place] dRCA has 70% stenosis. 11:20:24 Wire advanced across lesion. 11:21:07 Place stent Inflation Number: 1 A OLGA RX 4.0 x 18 stent ([id number]) was prepped and advanced across the Dist RCA 70. The stent was deployed at 13 WILLIAMS for 0:00 (min:sec) . 11:21:59 Stent catheter was removed intact over wire. 11::00 Wire removed. 11::00 Guide catheter removed. 11:: EXOSEAL 6Fr (EX600) opened to sterile field. 11::34 Lopressor 5 mg I.V. was administered by Cindy Richmond RN; Per physician; Verbal order read back and verified. 11::44 Sheath removed intact; hemostasis achieved with Exoseal to the Right Femoral artery. 11::47 Procedure ended.(Physican Out) :: Fluoroscopy time 00.00 minutes. 11:: Flurop Dose total: 1051 11:: Fluoroscopy dose: 1051 mGy 11::06 Dose Area Product 16782 mGy/cm. 11::11 Contrast amount:Isovue 300 166ml. 11:26:15 Maximum allowable dose exceeded? No. 11:26:16 Sharps counted by scrub and verified by R.N. 11:26:19 Insertion/operative site no bleeding no hematoma. 11:26:23 Post-op/insertion site Right Femoral artery dressed using a 4 x 4 and Tegaderm. 11:26:28 Post right femoral artery:stable, soft, clean and dry 11::31 Post Procedure Pulses reassessed and unchanged 11::34 Post procedure: right dorsailis pedis pulse 2+ Normal; easily identifiable; not easily obliterated. 11:26:39 Post-procedure physical assessment completed. ASA score P 3 - A patient with severe systemic disease as per Kristian Goodrich MD. 11:26:45 Post procedure rhythm: unchanged. 11::49 Estimated blood loss: 10 ml 11::50 Post procedure instruction explained to patient.Patient verbalizes understanding. 11::51 Patient needs reinforcement of post procedure teaching. 11:27:46 ACT drawn and resulted at 372 seconds. (normal therapeutic range 180-240 seconds). 11:28:29 Procedure type changed to Cath procedure, Diagnostic procedure, LHC, LHC w/Coronaries w/Grafts, Sedation Charges, Moderate Sedation up to 45 minutes, PCI procedure, Coronary Stent, Coronary Stent Initial, Coronary Atherectomy, Atherectomy w/Stent Coronary Initial, Hemochron ACT Test 11::06 Procedure and supply charges have been captured, reviewed, submitted and are correct. 11:31:10 Procedure Complication : No complications 11::14 [facility] Findings: MVD- PCI performed (see procedure note) 11:31:15 Operative report dictated upon procedure completion. 11:31:16 See physician's report for complete and final results. 11:31:18 Report given to [facility]. 11:31:20 Patient transfered to [facility] with Bed. 11:31:22 Procedure ended. 11:31:22 Full Disclosure recording stopped 11:31:25 Vital chart was stopped 11::33 ACC-PCI Only Patient was given prescriptions, or instructed by rKistian Goodrich MD to start/continue the following medications upon discharge: Plavix 11:31:34 End room use (Document Last) Intervention Summary Intervention Notes Time ActionType Lesion and Equipment Used Action# Pressure Duration Attributes 11:12:42 Place stent Prox LAD OLGA RX 3.0 x 1 17 00:00 22 stent ([id number]) 11:12:45 Reinflate Prox LAD OLGA RX 3.0 x 2 21 00:00 stent 22 stent balloon ([id number]) 11:16:44 Reinflate Prox LAD OLGA RX 3.0 x 3 23 00:00 stent 22 stent balloon ([id number]) 11:21:07 Place stent Dist RCA OLGA RX 4.0 x 1 13 00:00 18 stent ([id number]) Device Usage Item Name Manufacture Quantity Catalog Number Hospital Part Current M inimal Lot# / Charge Number Stock Stock Serial# Code ACIST Syringe Acist 1 94357 098037 395079 319663 2 0 (13314) Medical Systems Inc Bag Decanter Microtek 1 724900 50775 196265 5 () Medical Inc. Medline Cath Medline 1 [id number] 247994 43815 476154 5 Pack ([id number]) DIAGNOSTIC Cardinal 1 JU4970 069608 93681 960186 3 0 Multipack 5Fr Health catheter set (OD3239) ACIST Hand Acist 1 60267 508770 711996 573876 5 Control Medical (15076) Systems Inc ACIST Manifold Acist 1 32539 848604 031109 214751 5 (86946) Medical Systems Inc SHEATH 5FR Terumo 1 [id number] 038462 834273 879997 5 Hobgood (LEX627) EMERALD Guide Cardinal 2 502-513 076389 706830 639116 5 Wire (502-455) Health MULTIPACK JL Cardinal 1 361720 5 4.0 5Fr Health catheter DIAGNOSTIC AR Cardinal 1 [id number] 069106 889606 922633 1 5 MOD 5Fr Health Catheter ([id number]) MULTIPACK Cardinal 1 321816 5 Pigtail 5 Fr Health catheter INFLATOR Merit Merit 1 ED1274 642305 149100 393123 1 5 SuperblyJordan Valley Medical CenterVMTurbo Medical (XK5359) CHOICE PT [place] 1 [id number] 523848 996859 869022 5 Extra Support Scientific 182cm wire ([id number]) GUIDE 6FR Cardinal 1 [id number] 608816 207843 354498 1 0 XBLAD 3.5 Health catheter (72755569) LASER ELCA 0.9 Oleksandr 1 110-004 194637 988511 939482 5 Rx atherectomy Chronix Biomedical catheter (489147) (471253) OLGA RX 3.0 x Medtronic 1 [id number] 083678 0783891 071255 5 [id number] 22 stent ([id number]) SHEATH 6FR Terumo 1 OHO218 251796 015731 358197 4 0 Hobgood (DDS823) GUIDE 6FR AR Medtronic 1 [id number] 798207 15838 760742 1 2.0 catheter (UP4ZH76) OLGA RX 4.0 x Medtronic 1 [id number] 297034 4146806 025172 5 [id number] 18 stent ([id number]) EXOSEAL 6Fr Cardinal 1 EX600 413023 699664 400586 1 0 (EX600) Health Signature Audit [place] Stage Time Signature Unsigned Intra-Procedure 03/27/2019 Inge Dunn 11:32:53 AM RN Intra-Procedure 03/27/2019 Cindy Richmond RN 11:33:29 AM Intra-Procedure 03/27/2019 Kristian Goodrich MD 11:34:16 AM [facility] [address] [facility] [place] [address]
[~2019-03-22 13:57] MED LIST changes: +PERCOCET 10-321 EAC1 PO
[2019-03-22] MEDS ORDERED: HYDROCODON-ACE1 EA10 PO (14:31)
[2019-03-22 14:59] LABS: BASOPHILS 0.6 % (0-2); HEMATOCRIT 46.7 % (42.0-54.0); IMMATURE GRANULOCYTES 0.2 % (0-5); MCH 30.6 pg (26.0-34.0); MCHC 34.3 g/dL (31.0-37.0); MCV 89.3 fL (80.0-100.0); MEAN PLATELET VOLUME 9.3 fL (7.4-10.4); MONOCYTES 9.1 % (2-11); NEUTROPHILS 54.1 % (40-80); RBC 5.23 10x6/uL (4.20-6.10); RDW 13.4 % (11.5-14.5); WBC 6.4 10x3/uL (4.8-10.8)
[2019-03-22 15:00] LABS: CALC OSMOLALITY 276 mosm/kg (275-300); CALCIUM 8.5 mg/dL (8.5-10.1); CARBON DIOXIDE 30.6 mmol/L (21.0-32.0); CHLORIDE - SERUM 101 mmol/L (98-107); CREATININE - SERUM 1.2 mg/dL (0.6-1.3); GLUCOSE 108 mg/dL (74-106); INR 2.96 (0.85-1.17); POTASSIUM - SERUM 4.4 mmol/L (3.5-5.1); PROTIME 30.3 SECONDS (11.6-15.0); SODIUM 137 mmol/L (136-145); UREA NITROGEN 18 mg/dL (7-18); eGFR NON AFRICAN AMERICAN 66 mL/min (90-120)
[2019-03-22 15:01] LABS: APTT 53.2 SECONDS (22.8-39.4)
[2019-03-22 15:17] LABS: ALBUMIN 3.9 g/dL (3.4-5.0); ALKALINE PHOSPHATASE 143 U/L (30-120); CKMB 3.3 U/L (0.0-3.6); CREATINE KINASE 182 UL (21-232); MAGNESIUM - SERUM 1.7 mg/dL (1.8-2.4); PROTEIN - SERUM 7.2 g/dL (6.4-8.2); TROPONIN-I < 0.017 ng/mL (0.000-0.060)
[2019-03-22 15:20] VITALS: BP 146/88
[2019-03-22 15:26] LABS: ALT (SGPT) 28 U/L (10-68)
[2019-03-22 15:31] LABS: PLATELET COUNT 218 10x3/uL (130-400)
[2019-03-22 15:34] VITALS: BP 139/83
[2019-03-22 17:35] LABS: CKMB 2.8 U/L (0.0-3.6); CREATINE KINASE 165 UL (21-232); TROPONIN-I < 0.017 ng/mL (0.000-0.060)
--- NOTE | 2019-03-22 18:26 | NUR ---
TRANSFERED FROM ER BY W/Juma ESPINOZA TO ROOM. CALL LIGHT IN REACH.
--- NOTE | 2019-03-22 19:09 | NUR ---
RECEIVED BEDSIDE REPORT. PATIENT IS ALERT AND ORIENTED, RESTING COMFORTABLY IN BED. RESPIRATIONS ARE EVEN AND UNLABORED. NO S/S OF DISTRESS. NO C/O PAIN. NEEDS MET. CALL LGHT WITHIN REACH. WILL CPOC.
[2019-03-22 20:30] VITALS: BP 118/85
[2019-03-22 23:00] VITALS: BP 135/91
--- NOTE | 2019-03-22 23:00 | NUR ---
PATIENT RESTING COMFORTABLY IN BED. RESPIRATIONS ARE EVEN AND UNLABORED. NO S/S OF DISTRESS. NO C/O PAIN. CALL LIGHT WITHIN REACH. WILL CPOC.
[2019-03-22 23:07] LABS: CKMB 1.5 U/L (0.0-3.6); CREATINE KINASE 146 UL (21-232); TROPONIN-I < 0.017 ng/mL (0.000-0.060)
[2019-03-23 04:23] VITALS: BP 147/91
[2019-03-23 05:26] LABS: INR 2.82 (0.85-1.17); PROTIME 29.2 SECONDS (11.6-15.0)
[2019-03-23 05:51] LABS: CKMB 1.6 U/L (0.0-3.6); CREATINE KINASE 125 UL (21-232)
[2019-03-23 06:02] LABS: TROPONIN-I < 0.017 ng/mL (0.000-0.060)
[2019-03-23 08:00] VITALS: BP 144/88
[2019-03-23 08:40] LABS: BASOPHILS 0.9 % (0-2); EOSINOPHILS 5.3 % (0-7); HEMATOCRIT 45.3 % (42.0-54.0); HEMOGLOBIN 15.1 g/dL (13.5-17.5); IMMATURE GRANULOCYTES 0.2 % (0-5); LYMPHOCYTES 41.1 % (15-50); MCH 30.4 pg (26.0-34.0); MCHC 33.3 g/dL (31.0-37.0); MCV 91.1 fL (80.0-100.0); MEAN PLATELET VOLUME 9.5 fL (7.4-10.4); MONOCYTES 9.3 % (2-11); NEUTROPHILS 43.2 % (40-80); PLATELET COUNT 200 10x3/uL (130-400); RBC 4.97 10x6/uL (4.20-6.10); RDW 13.4 % (11.5-14.5); WBC 6.5 10x3/uL (4.8-10.8)
[2019-03-23 08:47] LABS: ALBUMIN 3.3 g/dL (3.4-5.0); BILIRUBIN - TOTAL 0.32 mg/dL (0.2-1.3); CALCIUM 8.5 mg/dL (8.5-10.1); CREATININE - SERUM 1.2 mg/dL (0.6-1.3); PROTEIN - SERUM 6.5 g/dL (6.4-8.2)
--- NOTE | 2019-03-23 09:42 | NUR ---
LEAVING FOR STRESS TEST BY W/C.
[2019-03-23 11:40] LABS: CKMB 1.4 U/L (0.0-3.6); CREATINE KINASE 114 UL (21-232)
[2019-03-23 12:08] LABS: TROPONIN-I < 0.017 ng/mL (0.000-0.060)
--- NOTE | 2019-03-23 12:22 | NUR ---
STRESS TEST COMPLETED. DIET RESUMED.
[2019-03-23 12:35] VITALS: BP 147/89
[2019-03-23 16:00] VITALS: BP 140/92
--- NOTE | 2019-03-23 19:32 | NUR ---
RECEIVED BEDSIDE REPORT. PATIENT IS ALERT AND ORIENTED, RESTING COMFORTABLY IN BED. RESPIRATIONS ARE EVEN AND UNLABORED. NO S/S OF DISTRESS. NO C/O PAIN. NEEDS MET. CALLL IGHT WITHIN REACH. WILL CPOC.
[2019-03-23 20:30] VITALS: BP 149/92
--- NOTE | 2019-03-24 01:50 | NUR ---
PATIENT RESTING COMFORTABLY IN BED. RESPIRATIONS ARE EVEN AND UNLABORED. NO S/S OF DISTRESS. CALL LIGHT WITHIN REACH. WILL CPOC.
[2019-03-24 05:10] LABS: BASOPHILS 0.7 % (0-2); EOSINOPHILS 4.8 % (0-7); HEMATOCRIT 44.3 % (42.0-54.0); HEMOGLOBIN 14.9 g/dL (13.5-17.5); IMMATURE GRANULOCYTES 0.4 % (0-5); LYMPHOCYTES 32.6 % (15-50); MCH 30.5 pg (26.0-34.0); MCHC 33.6 g/dL (31.0-37.0); MCV 90.8 fL (80.0-100.0); MEAN PLATELET VOLUME 9.2 fL (7.4-10.4); MONOCYTES 9.1 % (2-11); NEUTROPHILS 52.4 % (40-80); PLATELET COUNT 192 10x3/uL (130-400); RBC 4.88 10x6/uL (4.20-6.10); RDW 13.2 % (11.5-14.5); WBC 7.5 10x3/uL (4.8-10.8)
[2019-03-24 06:01] LABS: ALBUMIN 3.4 g/dL (3.4-5.0); ANION GAP 8.3 mmol/L (8-16); BILIRUBIN - TOTAL 0.32 mg/dL (0.2-1.3); CALCIUM 8.1 mg/dL (8.5-10.1); CARBON DIOXIDE 30.7 mmol/L (21.0-32.0); CREATININE - SERUM 1.1 mg/dL (0.6-1.3); PROTEIN - SERUM 6.4 g/dL (6.4-8.2)
[2019-03-24 07:51] VITALS: BP 143/86
[2019-03-24 09:57] LABS: INR 1.99 (0.85-1.17); PROTIME 22.3 SECONDS (11.6-15.0)
[2019-03-24 11:17] VITALS: BP 145/84
--- NOTE | 2019-03-24 14:15 | NUR ---
RECEIVED PT IN BED AAOX4 RESP UNLABORED SKIN W/D COLOR WNL BEAVER DENIES ANY PAIN OR NEEDS AT THIS TIME
[2019-03-24 15:18] LABS: CHOL - HDL RATIO 5.8 ratio (2.3-4.9); LDL-HDL RATIO 2.8 ratio (1.5-3.5)
[2019-03-24 15:21] VITALS: BP 141/88
--- NOTE | 2019-03-24 19:00 | NUR ---
RECEIVED BEDSIDE REPORT. PATIENT IS ALERT AND ORIENTED, WALKING AROUND UNIT. RESPIRATIONS ARE EVEN AND UNLABORED. NO S/S OF DISTRESS. NO C/O PAIN. CALLL IGHT WITHIN REACH. WILL CPOC.
[2019-03-24 20:16] VITALS: BP 136/89
--- NOTE | 2019-03-24 22:00 | NUR ---
PATIENT EXCITED THAT HE HAS HAD A BOWEL MOVEMENT. PATIENT STATES, "HE FEELS MUCH RELIEF."
[2019-03-25] VITALS: BP 162/100
--- NOTE | 2019-03-25 03:15 | NUR ---
PATIENT IS ALERT AND ORIENTED, WALKING AROUND BEDROOM. RESPIRATIONS ARE EVEN AND UNLABORED. NO S/S OF DISTRESS. NO C/O PAIN. NEEDS MET. CALL LIGHT WITHIN REACH. WILL CPOC.
[2019-03-25 05:07] LABS: BASOPHILS 0.5 % (0-2); EOSINOPHILS 5.4 % (0-7); HEMATOCRIT 46.9 % (42.0-54.0); HEMOGLOBIN 15.4 g/dL (13.5-17.5); IMMATURE GRANULOCYTES 0.4 % (0-5); LYMPHOCYTES 37.3 % (15-50); MCH 30.3 pg (26.0-34.0); MCHC 32.8 g/dL (31.0-37.0); MCV 92.3 fL (80.0-100.0); MEAN PLATELET VOLUME 9.3 fL (7.4-10.4); NEUTROPHILS 46.4 % (40-80); PLATELET COUNT 215 10x3/uL (130-400); RBC 5.08 10x6/uL (4.20-6.10); RDW 13.4 % (11.5-14.5); WBC 7.6 10x3/uL (4.8-10.8)
[2019-03-25 05:16] VITALS: BP 138/90
[2019-03-25 05:17] LABS: ALBUMIN 3.6 g/dL (3.4-5.0); ANION GAP 7.2 mmol/L (8-16); BILIRUBIN - TOTAL 0.37 mg/dL (0.2-1.3); CALCIUM 8.5 mg/dL (8.5-10.1); CARBON DIOXIDE 33.1 mmol/L (21.0-32.0); CREATININE - SERUM 1.1 mg/dL (0.6-1.3); POTASSIUM - SERUM 4.3 mmol/L (3.5-5.1); PROTEIN - SERUM 7.1 g/dL (6.4-8.2)
[2019-03-25 08:00] VITALS: BP 114/75
--- NOTE | 2019-03-25 10:00 | NUR ---
TELEMETRY SR. AMBULATES HALLWAY ADLIB. GAIT STEADY.
[2019-03-25 11:34] VITALS: BP 135/86
[2019-03-25 15:51] VITALS: BP 145/93
[2019-03-25 19:00] VITALS: BP 143/92
--- NOTE | 2019-03-25 19:54 | NUR ---
INITIAL ROUNDS COMPLETED AT 1910 HRS. PT BRUSHING TEETH AT SINK. ASSESSMENT COMPLETED AT 1935 HRS. VSS. ALERT AND ORIENTED TO PERSON, PLACE AND TIME. MARADIAGA. SR PER CM HR 80. LUNGS CTA. IV TO R HAND SL. SR UP X2, CALL LIGHT WITHIN REACH.
--- NOTE | 2019-03-25 21:13 | NUR ---
PM MEDS GIVEN. PT STATES HAS BEEN TAKING CYMBALTA, GABAPENTIN, NORCO, AND XANAX TOGETHER AT [facility] "FOR YEARS". PT ALSO STATED HE TOOK ALOT MORE OF THEM BUT HAS WEANED HIMSELF DOWN TO CURRENT DOSAGES. SR UP X1, CALL LIGHT WITHIN REACH.
--- NOTE | 2019-03-25 23:53 | NUR ---
PT AWAKE; DENIES ANY DISCOMFORT. CALL LIGHT WITHIN REACH.
[2019-03-26] VITALS: BP 148/91
--- NOTE | 2019-03-26 02:22 | NUR ---
PT RESTING WITH EYES CLOSED. RESP EVEN AND REGULAR. SR UP X2, CALL LIGHT WITHIN REACH.
--- NOTE | 2019-03-26 03:45 | NUR ---
PT IN BR. WILL CONTINUE TO MONITOR.
[2019-03-26 04:00] VITALS: BP 149/96
--- NOTE | 2019-03-26 04:31 | NUR ---
PT AWAKE; NO DISTRESS NOTED. CALL LIGHT WITHIN REACH.
[2019-03-26 04:42] LABS: BASOPHILS 0.6 % (0-2); EOSINOPHILS 5.2 % (0-7); HEMATOCRIT 45.3 % (42.0-54.0); HEMOGLOBIN 15.1 g/dL (13.5-17.5); IMMATURE GRANULOCYTES 0.7 % (0-5); LYMPHOCYTES 37.7 % (15-50); MCH 30.7 pg (26.0-34.0); MCHC 33.3 g/dL (31.0-37.0); MCV 92.1 fL (80.0-100.0); MEAN PLATELET VOLUME 9.1 fL (7.4-10.4); MONOCYTES 7.6 % (2-11); NEUTROPHILS 48.2 % (40-80); PLATELET COUNT 196 10x3/uL (130-400); RBC 4.92 10x6/uL (4.20-6.10); RDW 13.5 % (11.5-14.5); WBC 7.1 10x3/uL (4.8-10.8)
[2019-03-26 05:13] LABS: ALBUMIN 3.5 g/dL (3.4-5.0); ANION GAP 8.4 mmol/L (8-16); BILIRUBIN - TOTAL 0.39 mg/dL (0.2-1.3); CALCIUM 8.9 mg/dL (8.5-10.1); CARBON DIOXIDE 32.5 mmol/L (21.0-32.0); CREATININE - SERUM 1.1 mg/dL (0.6-1.3); POTASSIUM - SERUM 4.9 mmol/L (3.5-5.1); PROTEIN - SERUM 6.9 g/dL (6.4-8.2)
[2019-03-26 05:17] LABS: INR 1.21 (0.85-1.17); PROTIME 15.2 SECONDS (11.6-15.0)
--- NOTE | 2019-03-26 06:34 | NUR ---
VSS THROUGHOUT NIGHT. SR PER CM. PT DENIED ANY DISCOMFORT. NEEDSMET; WILL CONTINUE TO MONITOR.
[2019-03-26 08:03] VITALS: BP 126/85
[2019-03-26 08:06] LABS: CHOL - HDL RATIO 5.7 ratio (2.3-4.9); LDL-HDL RATIO 2.7 ratio (1.5-3.5)
--- NOTE | 2019-03-26 12:14 | NUR ---
CONSENTS SIGNED FOR [facility]. TELEMETRY SR. AMBULATING HALLWAY ADLIB. WILL CONT. PLAN OF CARE.
[2019-03-26 12:28] VITALS: BP 141/87
[2019-03-26 15:55] VITALS: BP 140/91
[2019-03-26 20:00] VITALS: BP 135/93
--- NOTE | 2019-03-26 20:02 | NUR ---
INITAIL ROUNDS COMPLETED AT 1910 HRS. PT DENIED ANY DISCOMFORT. ASSESSMENT COMPLETED AT 2000 HRS. SR PER CM HR 93. ALERT AND ORIENTED TO PERSON, PLACE AND TIME. MARADIAGA. IV TO R WRIST SL. LUNGS CTA. REINFORCED NPO AFTER MIDNIGHT FOR AM [facility]. PT STATED UNDERSTANDING. AT BEDSIDE. SR UP X2,CALL LIGHT WITHIN REACH.
--- NOTE | 2019-03-26 21:39 | NUR ---
PM MEDS GIVEN. FAMILY AT BEDSIDE.
--- NOTE | 2019-03-26 22:56 | NUR ---
ANDERSONIEN GIVEN PER REQUEST. NO DISTRESS NOTED. CALL LIGHT WITHIN REACH.
[2019-03-27] VITALS: BP 126/90
--- NOTE | 2019-03-27 00:44 | NUR ---
PT RESTING WITH EYES CLOSED. RESP EVEN AND REGULAR. SR UP X2, CALL LIGHT WITHIN REACH.
--- NOTE | 2019-03-27 02:18 | NUR ---
PT PLAYING ON HIS PHONE. NO DISTRESS NOTED.
[2019-03-27 04:00] VITALS: BP 125/85
--- NOTE | 2019-03-27 04:23 | NUR ---
PT RESTING WITH EYES CLOSED. RESP EVEN AND REGULAR. SR UP X2, CALL LIGHT WITHIN REACH.
--- NOTE | 2019-03-27 04:47 | NUR ---
PT IN SHOWER. INSTRUCTED ON USING HIBICLENS. STATES UNDERSTANDING.
--- NOTE | 2019-03-27 06:09 | NUR ---
VSS THROUGHOUT NIGHT. SR PER CM. NPO FOR AM C. NEEDS MET; WILL CONTINUE TO MONITOR.
[2019-03-27 06:13] LABS: INR 0.97 (0.85-1.17); PROTIME 12.9 SECONDS (11.6-15.0)
[2019-03-27 06:16] LABS: ALBUMIN 3.2 g/dL (3.4-5.0); ANION GAP 14.7 mmol/L (8-16); BILIRUBIN - TOTAL 0.39 mg/dL (0.2-1.3); CALCIUM 8.7 mg/dL (8.5-10.1); CARBON DIOXIDE 26.9 mmol/L (21.0-32.0); POTASSIUM - SERUM 4.6 mmol/L (3.5-5.1)
[2019-03-27 06:22] LABS: CREATININE - SERUM 1.4 mg/dL (0.6-1.3); PROTEIN - SERUM 4.5 g/dL (6.4-8.2)
[2019-03-27 06:30] LABS: BASOPHILS 0.1 % (0-2); EOSINOPHILS 0.1 % (0-7); HEMATOCRIT 45.8 % (42.0-54.0); HEMOGLOBIN 15.5 g/dL (13.5-17.5); IMMATURE GRANULOCYTES 0.9 % (0-5); LYMPHOCYTES 13.2 % (15-50); MCH 30.4 pg (26.0-34.0); MCHC 33.8 g/dL (31.0-37.0); MEAN PLATELET VOLUME 9.4 fL (7.4-10.4); MONOCYTES 2.1 % (2-11); NEUTROPHILS 83.6 % (40-80); RDW 13.4 % (11.5-14.5)
[2019-03-27 06:44] LABS: WBC 11.6 10x3/uL (4.8-10.8)
[2019-03-27 06:45] LABS: MCV 89.8 fL (80.0-100.0); PLATELET COUNT 260 10x3/uL (130-400)
[2019-03-27 08:07] VITALS: BP 133/87
--- NOTE | 2019-03-27 11:48 | MORECARE ---
CASE MANAGEMENT DISCHARGE SUMMARY PATIENT: IKER LOWE UNIT: [id number] ADM DATE: 03/24/19 AGE: 58 : 64 SEX: M ROOM/BED: D.2114 AUTHOR: GIANFRANCO MCCAULEY PHYSICIAN: REFERRING PHYSICIAN: ROSELIA QUEVEDO MD DATE OF SERVICE: 03/27/19 Discharge Plan Patient Name: IKER LOWE Facility: [facility]:[place] : 1960 Planned Disposition: Home Anticipated Discharge Date: Discharge Date: Expected LOS: Initial Reviewer: [id number] Initial Review Date: 03/27/2019 Generated: 03/27/19 12:48 pm DCPIA - Discharge Planning Initial Assessment Updated by [email or web address]: Catalina Torres on 03/27/19 11:47 am * Is the patient Alert and Oriented? Yes * PCP [facility] IN [facility] * Pharmacy [facility] * Preadmission Environment Home with Family * ADLs Independent * Other Equipment 02 * Please name any agencies selected above. [facility] [place] * Additional services required to return to the preadmission environment? No * Can the patient safely return to the preadmission environment? Yes * Has this patient been hospitalized within the prior 30 days at any hospital? No Coverage Notice Reviewer: [id number] Marybeth Can Notice Issued Date-Time: 03/22/2019 16:33 Notice Type: Medicare Outpatient Observation Notice Notice Delivered To: Family Member Relationship to Patient: Spouse Edger Machine Setter Name: Aracelis Lowe Delivery Method: HAND - Hand Delivered Christiana Days: Prior Verbal Notification: Recipient Understood Notice: Yes Recipient Signature: Yes Med Rec Note Co-signed by Attending: Coverage Notice Comment: KOENIG delivered to and signed by spouse. Original given to patient and one placed on the chart. Patient Name: IKER LOWE Page [id number] at 1148 All edits/amendments must be made on the electronic document DICTATION DATE: 03/27/19 1148 ROAST MASTER: HINA 03/27/19 1148 RPT#: [id number] DC DATE: STATUS: ADM IN [facility] [address] [place] [address] END OF REPORT
--- NOTE | 2019-03-27 11:50 | NUR ---
ARRIVE BACK TO ROOM VIA BED FROM PERFORMANCE IMPROVEMENT COORDINATOR. BP-128/73, HR-93, O2-97% WITH 2L NC. PULSE PALPABLE BILATERALLY. RT GROIN DRESSING CLEAN DRY INTACT. FREE FROM BLEEDING. FREE FROM HEMATOMA. SPOUSE AT BEDSIDE. CONTINUE PLAN OF CARE AND SAFETY PRECAUTIONS.
--- NOTE | 2019-03-27 11:55 | MORECARE ---
CASE MANAGEMENT DISCHARGE SUMMARY PATIENT: IKER LOWE UNIT: [id number] ADM DATE: 03/24/19 AGE: 58 : 64 SEX: M ROOM/BED: D.6584 AUTHOR: GIANFRANCO MCCAULEY PHYSICIAN: REFERRING PHYSICIAN: ROSELIA QUEVEDO MD DATE OF SERVICE: 03/27/19 Discharge Plan Patient Name: IKER LOWE Facility: [facility]:[place] : 1960 Planned Disposition: Home Anticipated Discharge Date: Discharge Date: Expected LOS: Initial Reviewer: [id number] Initial Review Date: 03/27/2019 Generated: 03/27/19 12:55 pm Comments DCP- Discharge Planning Updated by [id number]: Catalina Torres on 03/27/19 10:[address] Patient Name: IKER LOWE Admission Status: ER Accout number: [id number] Admission Date: 03-24-2019 : 1960 Admission Diagnosis: Attending: RSOELIA QUEVEDO Current LOS: 3 Anticipated DC Date: Planned Disposition: Home Primary Insurance: MEDICARE A & B Discharge Planning Comments: CM MET WITH PATIENT'S . HE IS IN THE [place]. STATES HAS HOME 02 BUT WOULD LIKE PORTABLE ALSO IF QUALIFIES. HE WILL NEED A WALK TEST ORDERED. KARINA SIGNED FOR [facility] [place]. IMM SIGNED. CM TO FOLLOW AND ASSIST NEEDED. Disease Intervention Specialist: Catalina Torres DCPIA - Discharge Planning Initial Assessment Updated by [email or web address]: Catalina Torres on 03/27/19 11:47 am * Is the patient Alert and Oriented? Yes * PCP [facility] IN [facility] * [facility] * Preadmission Environment Home with Family * ADLs Independent * Other Equipment 02 * Please name any agencies selected above. [facility] [place] * Additional services required to return to the preadmission environment? No * Can the patient safely return to the preadmission environment? Yes * Has this patient been hospitalized within the prior 30 days at any hospital? No Coverage Notice Reviewer: [id number] - Kalani Can Notice Issued Date-Time: 03/22/2019 16:33 Notice Type: Medicare Outpatient Observation Notice Notice Delivered To: Family Member Relationship to Patient: Spouse Outboard Technician Name: Aracelis Lowe Delivery Method: HAND - Hand Delivered Christiana Days: Prior Verbal Notification: Recipient Understood Notice: Yes Recipient Signature: Yes Med Rec Note Co-signed by Attending: Coverage Notice Comment: KOENIG delivered to and signed by spouse. Original given to patient and one placed on the chart. Reviewer: [id number] Marybeth Torres Notice Issued Date-Time: 03/27/2019 11:50 Notice Type: IM Discharge Notice Notice Delivered To: Family Member Relationship to Patient: Outboard Technician Name: Delivery Method: HAND - Hand Delivered Christiana Days: Prior Verbal Notification: Recipient Understood Notice: Yes Recipient Signature: Yes Med Rec Note Co-signed by Attending: Coverage Notice Comment: Reviewer: [id number] Marybeth Torres Notice Issued Date-Time: 03/27/2019 11:50 Notice Type: Patient Choice Letter Notice Delivered To: Family Member Relationship to Patient: Outboard Technician Name: Delivery Method: HAND - Hand Delivered Christiana Days: Prior Verbal Notification: Recipient Understood Notice: Yes Recipient Signature: Yes Med Rec Note Co-signed by Attending: Coverage Notice Comment: [facility] [place] Last DP export: 03/27/19 10:48 a Patient Name: IKER LOWE Page [phone] at 1155 All edits/amendments must be made on the electronic document DICTATION DATE: 03/27/19 1155 MANUAL LATHE MACHINIST: HINA 03/27/19 1155 RPT#: [id number] DC DATE: STATUS: ADM IN [facility] [address] [place] [address] END OF REPORT
[2019-03-27 16:13] VITALS: BP 135/73
--- NOTE | 2019-03-27 16:38 | OP ---
PATIENT NAME: IKER LOWE MEDICAL RECORD: [id number] :64 LOCATION:D.M2 D.2114 ADMISSION DATE:03/24/19 SURGEON: ISIAH GARG MD DATE OF OPERATION: 03/27/2019 PROCEDURES: 1. PTCA stent RCA. 2. Laser atherectomy, PTCA stent LAD. 3. Selective coronary angiography. INDICATION: Angina and coronary artery disease. PROCEDURE IN DETAIL: After informed consent was obtaiend and after detailed description of risks, benefits as well as alternative therapies, the patient elected to proceed with angiogram and angioplasty. The right femoral area has a preexisting sheath from cardiac catheterization, all catheters exchanged through this sheath. FINDINGS: The left anterior descending had greater than 80% in-stent restenosis. This was addressed with a 0.9 laser catheter, multiple passes were made at 80/40. Stenting was undertaken with a 3.0 x 22 Harrison taken to 23 atmospheres. Result was 0% residual stenosis. PTCA STENT OF THE RCA: The stent used 4.0 x 18 mm Harrison. Result was 0% residual stenosis. OVERALL IMPRESSION: Successful percutaneous transluminal coronary angioplasty stent and laser PTCA stent of the RCA and left anterior descending going from 70% to 80% initial stenosis to 0% residual. TRANSINT:[id number] Voice Confirmation ID: [id number] DOCUMENT ID: [id number] ISIAH GARG MD at 1638 CC: [id number] DICTATION DATE: 03/27/19 1126 ROTARY DRILL OPERATOR: 03/27/19 1614 ADM IN [facility] [address] [place] [address]
--- NOTE | 2019-03-27 16:56 | NUR ---
ALERT AND ORIENTED X4. REMAINS FLAT IN BED DUE TO HIGH RISK FOR BLEEDING. BLOOD ON DRESSING MARKED. SAND BAG REMOVED FROM SITE. FREE FROM HEMATOMA. VITALS SIGNS STABLE. RT HAND IV INFILTRATED. DC RT HAND IV TIP INTACT. SINUS RYTHM ON TELEMETRY. DENIES ANY NEEDS. CONTINUE PLAN OF CARE AND SAFETY PRECAUTIONS.
--- NOTE | 2019-03-27 19:26 | NUR ---
RECEIVED BEDSIDE REPORT. PATIENT IS ALERT AND ORIENTED, RESTING COMFORTABLY IN BED. RESPIRATIONS ARE EVEN AND UNLABORED. RIGHT GROIN ASSESSED NO BLEEDING, BRUISING OR HEMATOMA. NO S/S OF DISTRESS. NO C/O PAIN. PATIENT REMAINS ON 2L NC. NEEDS MET. CALL LIGHT WITHIN REACH. WILL CPOC.
[2019-03-27 20:00] VITALS: BP 125/76
[2019-03-28] VITALS: BP 141/90
--- NOTE | 2019-03-28 00:12 | NUR ---
PATIENT RESTING COMFORTABLY IN BED. RESPIRATIONS ARE EVEN AND UNLABORED. NO S/S OF DISTRESS. NO C/O PAIN. CALL LIGHT WITHIN REACH. WILL CPOC.
--- NOTE | 2019-03-28 03:59 | NUR ---
PATIENT RESTING IN BED. RESPIRATIONS ARE EVEN AND UNLABORED. NO S/S OF DISTRESS. NO C/O PAIN. CALL LIGHT WITHIN REACH. WILL CPOC.
[2019-03-28 04:00] VITALS: BP 139/88
[2019-03-28 06:48] LABS: INR 0.96 (0.85-1.17); PROTIME 12.7 SECONDS (11.6-15.0)
[2019-03-28 06:50] LABS: HEMATOCRIT 43.1 % (42.0-54.0); HEMOGLOBIN 14.5 g/dL (13.5-17.5); MCH 30.4 pg (26.0-34.0); MCHC 33.6 g/dL (31.0-37.0); MCV 90.4 fL (80.0-100.0); MEAN PLATELET VOLUME 9.5 fL (7.4-10.4); PLATELET COUNT 254 10x3/uL (130-400); RBC 4.77 10x6/uL (4.20-6.10); RDW 13.7 % (11.5-14.5); WBC 22.7 10x3/uL (4.8-10.8)
--- NOTE | 2019-03-28 07:20 | NUR ---
RECIEVE REPORT. RESTING IN BED WITH EYES CLOSED. NO SIGNS OF DISTRESS. SINUS RYTHM ON TELEMETRY. RT GROIN DRESSING CLEAN DRY INTACT. FREE FROM HEMATOMA. FREE FROM BLEEDING. CONTINUE PLAN OF CARE AND SAFETY PRECAUTIONS.
[2019-03-28 07:21] LABS: ALBUMIN 3.7 g/dL (3.4-5.0); BILIRUBIN - TOTAL 0.36 mg/dL (0.2-1.3); CALCIUM 8.6 mg/dL (8.5-10.1); CREATININE - SERUM 1.3 mg/dL (0.6-1.3)
[2019-03-28 07:27] LABS: PROTEIN - SERUM 6.5 g/dL (6.4-8.2)
[2019-03-28 09:08] VITALS: BP 129/81
[2019-03-28 09:10] LABS: LYMPHOCYTES 17 % (15-50); MONOCYTES 7 % (2-11); NEUTROPHILS 72 % (40-80); PLATELET ESTIMATE NORMAL
[2019-03-28 09:11] LABS: ANISOCYTOSIS OCC
[2019-03-28 12:44] VITALS: BP 134/78
[2019-03-28 16:00] VITALS: BP 149/96
[2019-03-28 16:33] LABS: APPEARANCE CLEAR (CLEAR); BILIRUBIN NEGATIVE (NEGATIVE); COLOR YELLOW (YELLOW); GLUCOSE 250 mg/dL (NEGATIVE); KETONE NEGATIVE (NEGATIVE); NITRITE NEGATIVE (NEGATIVE); PROTEIN NEGATIVE (NEGATIVE); SPECIFIC GRAVITY 1.015 (1.005-1.020); UROBILINOGEN NORMAL (NORMAL)
[2019-03-28 16:34] LABS: BACTERIA FEW /hpf (NEGATIVE); RED CELLS - URINE 0-5 /hpf (0-5); WHITE CELLS - URINE OCC /hpf (NEGATIVE)
--- NOTE | 2019-03-28 19:27 | NUR ---
RECEIVED BEDSIDE REPORT. PATIENT IS RESTING COMFORTABLY, IN BED. RESPIRATIONS ARE EVEN AND UNLABORED. NO S/S OF DISTRESS. AT BEDSIDE. CALL LIGHT WITHIN REACH. WILL CPOC.
[2019-03-28 20:00] VITALS: BP 117/78
[2019-03-29] VITALS: BP 136/87
--- NOTE | 2019-03-29 00:10 | NUR ---
PATIENT RESTING COMFORTABLY IN BED. RESPIRATIONS ARE EVEN AND UNLABORED. NO S/S OF DISTRESS. AT BEDSIDE. CALL LIGHT WITHIN REACH. WILL CPOC.
[2019-03-29 04:00] VITALS: BP 109/72
[2019-03-29 06:58] LABS: INR 1.11 (0.85-1.17); PROTIME 14.2 SECONDS (11.6-15.0)
[2019-03-29 09:17] VITALS: BP 116/72
--- NOTE | 2019-03-29 12:38 | MORECARE ---
CASE MANAGEMENT DISCHARGE SUMMARY PATIENT: IKER LOWE UNIT: [id number] ADM DATE: 03/24/19 AGE: 58 : 64 SEX: M ROOM/BED: D.9114 AUTHOR: GIANFRANCO MCCAULEY PHYSICIAN: REFERRING PHYSICIAN: ROSELIA QUEVEDO MD DATE OF SERVICE: 03/29/19 Discharge Plan Patient Name: IKER LOWE Facility: [facility]:[place] : 1960 Planned Disposition: Home Anticipated Discharge Date: Discharge Date: Expected LOS: Initial Reviewer: [id number] Initial Review Date: 03/27/2019 Generated: 03/29/19 1:38 pm Comments DCP- Discharge Planning Updated by [email or web address]: Ana Allen on 03/29/19 11:[address] CM SPOKE WITH PATIENT AND ABOUT USING A LOVENOX BRIDGE AT HOME. PROVIDED ALTERNATIVES ABOUT USING HOME HEALTH TO ADMINISTER LOVENOX, AND MONITOR INR LEVELS. PATIENT AND ARE RECEPTIVE TO USING HH, BUT WOULD LIKE TO WAIT UNTIL THE INR LEVELS ARE CLOSER TO THERAPEAUTIC. STATED THAT THEY WOUL LIKE CM TO STOP BY TOMORROW AFTER LABS HAVE RESULTED TO DISCUSS HH AGAIN. DCP- Discharge Planning Updated by [email or web address]: Catalina Torres on 03/27/19 10:[address] Patient Name: IKER LOWE Admission Status: ER Accout number: [id number] Admission Date: 03-24-2019 : 1960 Admission Diagnosis: Attending: ROSELIA QUEVEDO Current LOS: 3 Anticipated DC Date: Planned Disposition: Home Primary Insurance: MEDICARE A & B Discharge Planning Comments: CM MET WITH PATIENT'S . HE IS IN THE RN ONCOLOGY CLINICAL. STATES HAS HOME 02 BUT WOULD LIKE PORTABLE ALSO IF QUALIFIES. HE WILL NEED A WALK TEST ORDERED. KARINA SIGNED FOR [facility] [place]. IMM SIGNED. CM TO FOLLOW AND ASSIST NEEDED. Order Entry Representative: Catalina Torres DCPIA - Discharge Planning Initial Assessment Updated by [email or web address]: Catalina Torres on 03/27/19 11:47 am * Is the patient Alert and Oriented? Yes * PCP [facility] IN [facility] * Pharmacy [facility] * Preadmission Environment Home with Family * ADLs Independent * Other Equipment 02 * Please name any agencies selected above. [facility] [place] * Additional services required to return to the preadmission environment? No * Can the patient safely return to the preadmission environment? Yes * Has this patient been hospitalized within the prior 30 days at any hospital? No Coverage Notice Reviewer: [id number] Marybeth Can Notice Issued Date-Time: 03/22/2019 16:33 Notice Type: Medicare Outpatient Observation Notice Notice Delivered To: Family Member Relationship to Patient: Spouse Integration Developer Name: Aracelis Lowe Delivery Method: HAND - Hand Delivered Christiana Days: Prior Verbal Notification: Recipient Understood Notice: Yes Recipient Signature: Yes Med Rec Note Co-signed by Attending: Coverage Notice Comment: KOENIG delivered to and signed by spouse. Original given to patient and one placed on the chart. Reviewer: [id number] Marybeth Torres Notice Issued Date-Time: 03/27/2019 11:50 Notice Type: IM Discharge Notice Notice Delivered To: Family Member Relationship to Patient: Integration Developer Name: Delivery Method: HAND - Hand Delivered Christiana Days: Prior Verbal Notification: Recipient Understood Notice: Yes Recipient Signature: Yes Med Rec Note Co-signed by Attending: Coverage Notice Comment: Reviewer: [id number] Marybeth Torres Notice Issued Date-Time: 03/27/2019 11:50 Notice Type: Patient Choice Letter Notice Delivered To: Family Member Relationship to Patient: Integration Developer Name: Delivery Method: HAND - Hand Delivered Christiana Days: Prior Verbal Notification: Recipient Understood Notice: Yes Recipient Signature: Yes Med Rec Note Co-signed by Attending: Coverage Notice Comment: [facility] [place] Last DP export: 03/27/19 10:55 a Patient Name: IKER LOWE Page [phone] at 1238 All edits/amendments must be made on the electronic document DICTATION DATE: 03/29/19 1238 RAIL DOWELING MACHINE OPERATOR: HINA 03/29/19 1238 RPT#: [id number] DC DATE: STATUS: ADM IN [facility] [address] [place] [address] END OF REPORT
[2019-03-29 12:46] LABS: BASOPHILS 0.2 % (0-2); EOSINOPHILS 1.3 % (0-7); HEMATOCRIT 45.9 % (42.0-54.0); HEMOGLOBIN 15.2 g/dL (13.5-17.5); IMMATURE GRANULOCYTES 1.3 % (0-5); LYMPHOCYTES 33.1 % (15-50); MCH 30.8 pg (26.0-34.0); MCHC 33.1 g/dL (31.0-37.0); MEAN PLATELET VOLUME 9.1 fL (7.4-10.4); MONOCYTES 7.9 % (2-11); NEUTROPHILS 56.2 % (40-80); PLATELET COUNT 225 10x3/uL (130-400); RBC 4.93 10x6/uL (4.20-6.10); RDW 14.3 % (11.5-14.5)
[2019-03-29 12:48] LABS: MCV 93.1 fL (80.0-100.0); WBC 12.6 10x3/uL (4.8-10.8)
[2019-03-29 13:19] LABS: ALBUMIN 3.7 g/dL (3.4-5.0); BILIRUBIN - TOTAL 0.31 mg/dL (0.2-1.3); CARBON DIOXIDE 31.3 mmol/L (21.0-32.0); CREATININE - SERUM 1.3 mg/dL (0.6-1.3); PROTEIN - SERUM 6.7 g/dL (6.4-8.2)
[2019-03-29 13:21] LABS: ANION GAP 11.7 mmol/L (8-16)
[2019-03-29 14:14] VITALS: BP 127/83; Ht 177.8 cm; Wt 99.3 kg
[2019-03-29 17:01] VITALS: BP 115/73
--- NOTE | 2019-03-29 19:56 | NUR ---
RECEIVED BEDSIDE REPORT. PATIENT IS ALERT AND ORIENTED, RESTING COMFORTABLY IN BED. RESPIRATIONS ARE EVEN AND UNLABORED. NO S/S OF DISTRESS. NO C/O PAIN. CALL LIGHT WITHIN REACH. WILL CPOC.
[2019-03-29 20:00] VITALS: BP 118/68
[2019-03-30] VITALS: BP 114/65
[2019-03-30 04:00] VITALS: BP 101/65
[2019-03-30 06:44] LABS: INR 1.48 (0.85-1.17); PROTIME 17.7 SECONDS (11.6-15.0)
[2019-03-30 06:55] LABS: BASOPHILS 0.4 % (0-2); EOSINOPHILS 3.4 % (0-7); HEMATOCRIT 41.3 % (42.0-54.0); HEMOGLOBIN 13.4 g/dL (13.5-17.5); IMMATURE GRANULOCYTES 1.4 % (0-5); LYMPHOCYTES 39.6 % (15-50); MCH 30.1 pg (26.0-34.0); MCHC 32.4 g/dL (31.0-37.0); MCV 92.8 fL (80.0-100.0); MEAN PLATELET VOLUME 9.5 fL (7.4-10.4); MONOCYTES 8.5 % (2-11); NEUTROPHILS 46.7 % (40-80); PLATELET COUNT 189 10x3/uL (130-400); RBC 4.45 10x6/uL (4.20-6.10); RDW 14.2 % (11.5-14.5)
[2019-03-30 06:58] LABS: WBC 8.3 10x3/uL (4.8-10.8)
[2019-03-30 07:01] LABS: ALBUMIN 3.2 g/dL (3.4-5.0); BILIRUBIN - TOTAL 0.26 mg/dL (0.2-1.3); CARBON DIOXIDE 31.5 mmol/L (21.0-32.0); CREATININE - SERUM 1.3 mg/dL (0.6-1.3); POTASSIUM - SERUM 4.5 mmol/L (3.5-5.1); PROTEIN - SERUM 5.5 g/dL (6.4-8.2)
--- NOTE | 2019-03-30 08:37 | MORECARE ---
CASE MANAGEMENT DISCHARGE SUMMARY PATIENT: IKER LOWE UNIT: [id number] ADM DATE: 03/24/19 AGE: 58 : 64 SEX: M ROOM/BED: D.8635 AUTHOR: GIANFRANCO MCCAULEY PHYSICIAN: REFERRING PHYSICIAN: ROSELIA QUEVEDO MD DATE OF SERVICE: 03/30/19 Discharge Plan Patient Name: IKER LOWE Facility: [facility]:[place] : 1960 Planned Disposition: Home Anticipated Discharge Date: Discharge Date: Expected LOS: Initial Reviewer: [id number] Initial Review Date: 03/27/2019 Generated: 03/30/19 9:37 am DCP- Discharge Planning Updated by [email or web address]: Ana Allen on 03/29/19 11:[address] CM SPOKE WITH PATIENT AND ABOUT USING A LOVENOX BRIDGE AT HOME. PROVIDED ALTERNATIVES ABOUT USING HOME HEALTH TO ADMINISTER LOVENOX, AND MONITOR INR LEVELS. PATIENT AND ARE RECEPTIVE TO USING HH, BUT WOULD LIKE TO WAIT UNTIL THE INR LEVELS ARE CLOSER TO THERAPEAUTIC. STATED THAT THEY WOUL LIKE CM TO STOP BY TOMORROW AFTER LABS HAVE RESULTED TO DISCUSS HH AGAIN. DCP- Discharge Planning Updated by [email or web address]: Catalina Torres on 03/27/19 10:[address] Patient Name: IKER LOWE Admission Status: ER Accout number: [id number] Admission Date: 03-24-2019 : 1960 Admission Diagnosis: Attending: ROSELIA QUEVEDO Current LOS: 3 Anticipated DC Date: Planned Disposition: Home Primary Insurance: MEDICARE A & B Discharge Planning Comments: CM MET WITH PATIENT'S . HE IS IN THE [place]. STATES HAS HOME 02 BUT WOULD LIKE PORTABLE ALSO IF QUALIFIES. HE WILL NEED A WALK TEST ORDERED. KARINA SIGNED FOR [facility] [place]. IMM SIGNED. CM TO FOLLOW AND ASSIST NEEDED. Silk Screen Operator: Catalina Torres DCPIA - Discharge Planning Initial Assessment Updated by [id number]: Catalina Torres on 03/27/19 11:47 am * Is the patient Alert and Oriented? Yes * PCP [facility] IN [facility] * Pharmacy [facility] * Preadmission Environment Home with Family * ADLs Independent * Other Equipment 02 * Please name any agencies selected above. [facility] [place] * Additional services required to return to the preadmission environment? No * Can the patient safely return to the preadmission environment? Yes * Has this patient been hospitalized within the prior 30 days at any hospital? No Coverage Notice Reviewer: [id number] Marybeth Can Notice Issued Date-Time: 03/22/2019 16:33 Notice Type: Medicare Outpatient Observation Notice Notice Delivered To: Family Member Relationship to Patient: Spouse Hospice Art Therapist Name: Aracelis Lowe Delivery Method: HAND - Hand Delivered Christiana Days: Prior Verbal Notification: Recipient Understood Notice: Yes Recipient Signature: Yes Med Rec Note Co-signed by Attending: Coverage Notice Comment: KOENIG delivered to and signed by spouse. Original given to patient and one placed on the chart. Reviewer: [id number] Marybeth Torres Notice Issued Date-Time: 03/27/2019 11:50 Notice Type: IM Discharge Notice Notice Delivered To: Family Member Relationship to Patient: Hospice Art Therapist Name: Delivery Method: HAND - Hand Delivered Christiana Days: Prior Verbal Notification: Recipient Understood Notice: Yes Recipient Signature: Yes Med Rec Note Co-signed by Attending: Coverage Notice Comment: Reviewer: [id number] Marybeth Torres Notice Issued Date-Time: 03/27/2019 11:50 Notice Type: Patient Choice Letter Notice Delivered To: Family Member Relationship to Patient: Hospice Art Therapist Name: Delivery Method: HAND - Hand Delivered Christiana Days: Prior Verbal Notification: Recipient Understood Notice: Yes Recipient Signature: Yes Med Rec Note Co-signed by Attending: Coverage Notice Comment: [facility] [place] Last DP export: 03/29/19 11:38 a Patient Name: IKER LOWE Page [phone] at 0837 All edits/amendments must be made on the electronic document DICTATION DATE: 03/30/19 0837 MILL OILER: HINA 03/30/19 0837 RPT#: [id number] DC DATE: STATUS: ADM IN [facility] [address] [place] [address] END OF REPORT
[2019-03-30 09:57] VITALS: BP 124/76
[2019-03-30 12:47] VITALS: BP 125/78
--- NOTE | 2019-03-30 13:58 | NUR ---
CUSTOMER ACCOUNTS ADVISOR AT DISCUSSING HOME HEALTH FOR PT INR AND LOVENOX INJ. AT BS. WILL CONT. PLAN OF CARE.
--- NOTE | 2019-03-30 14:32 | NUR ---
UP AMBULATING HALLWAY. GAIT STEADY.
--- NOTE | 2019-03-30 14:44 | NUR ---
WALK TEST DONE PT DESAT TO 84% WITH EXCERTION O2 APPLIED @ 2LNC SPO2 98%
--- NOTE | 2019-03-30 14:49 | NUR ---
02 SAT 96% RA AMBULATING.
[2019-03-30 14:57] LABS: INR 1.5 (0.85-1.17)
--- NOTE | 2019-03-30 15:44 | MORECARE ---
CASE MANAGEMENT DISCHARGE SUMMARY PATIENT: IKER LOWE UNIT: [id number] ADM DATE: 03/24/19 AGE: 58 : 64 SEX: M ROOM/BED: D.4948 AUTHOR: GIANFRANCO MCCAULEY PHYSICIAN: REFERRING PHYSICIAN: ROSELIA QUEVEDO MD DATE OF SERVICE: 03/30/19 Discharge Plan Patient Name: IKER LOWE Facility: [facility]:[place] : 1960 Planned Disposition: Home with Home Health Anticipated Discharge Date: 03/30/19 Discharge Date: Expected LOS: 6 Initial Reviewer: [id number] Initial Review Date: 03/27/2019 Generated: 03/30/19 4:43 pm DCP- Discharge Planning Updated by [id number]: Ana Allen on 03/29/19 11:[address] CM SPOKE WITH PATIENT AND ABOUT USING A LOVENOX BRIDGE AT HOME. PROVIDED ALTERNATIVES ABOUT USING HOME HEALTH TO ADMINISTER LOVENOX, AND MONITOR INR LEVELS. PATIENT AND ARE RECEPTIVE TO USING HH, BUT WOULD LIKE TO WAIT UNTIL THE INR LEVELS ARE CLOSER TO THERAPEAUTIC. STATED THAT THEY WOUL LIKE CM TO STOP BY TOMORROW AFTER LABS HAVE RESULTED TO DISCUSS HH AGAIN. DCP- Discharge Planning Updated by [id number]: Catalina Torres on 03/27/19 10:[address] Patient Name: IKER LOWE Admission Status: ER Accout number: [id number] Admission Date: 03-24-2019 : 1960 Admission Diagnosis: Attending: ROSELIA QUEVEDO Current LOS: 3 Anticipated DC Date: Planned Disposition: Home Primary Insurance: MEDICARE A & B Discharge Planning Comments: CM MET WITH PATIENT'S . HE IS IN THE [place]. STATES HAS HOME 02 BUT WOULD LIKE PORTABLE ALSO IF QUALIFIES. HE WILL NEED A WALK TEST ORDERED. KARINA SIGNED FOR [facility] [place] [facility] [place]. IMM SIGNED. CM TO FOLLOW AND ASSIST NEEDED. Production Operator: Catalina Torres DCPIA - Discharge Planning Initial Assessment Updated by [email or web address]: Catalina Torres on 03/27/19 11:47 am * Is the patient Alert and Oriented? Yes * PCP [facility] IN [facility] * Pharmacy [facility] * Preadmission Environment Home with Family * ADLs Independent * Other Equipment 02 * Please name any agencies selected above. [facility] [place] * Additional services required to return to the preadmission environment? No * Can the patient safely return to the preadmission environment? Yes * Has this patient been hospitalized within the prior 30 days at any hospital? No External Providers External Provider: OTHER-OTHER Next Contact Date: 03/30/2019 Service Request Date: Service Type: Resolution: Reviewer: Comments: Coverage Notice Reviewer: [email or web address] Marybeth Can Notice Issued Date-Time: 03/22/2019 16:33 Notice Type: Medicare Outpatient Observation Notice Notice Delivered To: Family Member Relationship to Patient: Spouse Machine Container Washer Name: Aracelis Lowe Delivery Method: HAND - Hand Delivered Christiana Days: Prior Verbal Notification: Recipient Understood Notice: Yes Recipient Signature: Yes Med Rec Note Co-signed by Attending: Coverage Notice Comment: KOENIG delivered to and signed by spouse. Original given to patient and one placed on the chart. Reviewer: [id number] Marybeth Torres Notice Issued Date-Time: 03/27/2019 11:50 Notice Type: IM Discharge Notice Notice Delivered To: Family Member Relationship to Patient: Machine Container Washer Name: Delivery Method: HAND - Hand Delivered Christiana Days: Prior Verbal Notification: Recipient Understood Notice: Yes Recipient Signature: Yes Med Rec Note Co-signed by Attending: Coverage Notice Comment: Reviewer: [id number] Marybeth Torres Notice Issued Date-Time: 03/27/2019 11:50 Notice Type: Patient Choice Letter Notice Delivered To: Family Member Relationship to Patient: Machine Container Washer Name: Delivery Method: HAND - Hand Delivered Christiana Days: Prior Verbal Notification: Recipient Understood Notice: Yes Recipient Signature: Yes Med Rec Note Co-signed by Attending: Coverage Notice Comment: [facility] [place] Last DP export: 03/30/19 7:37 a Patient Name: IKER LOWE Page [id number] at 1544 All edits/amendments must be made on the electronic document DICTATION DATE: 03/30/191542 BILLING CUSTOMER SERVICE REPRESENTATIVE: HINA 03/30/19 154 RPT#: [id number] DC DATE: STATUS: ADM IN [facility] [address] [place] [address] END OF REPORT
--- NOTE | 2019-03-30 16:46 | NUR ---
MARNIE WITH CM PAGED SHEA GROVER APN FOR DISCHARGE ORDERS.
[2019-03-30] MEDS ORDERED: LIPITOR20 MG PO (16:53)
--- NOTE | 2019-03-30 16:54 | MORECARE ---
CASE MANAGEMENT DISCHARGE SUMMARY PATIENT: IKER LOWE UNIT: [id number] ADM DATE: 03/24/19 AGE: 58 : 64 SEX: M ROOM/BED: D.3220 AUTHOR: GARRICK,DOC PHYSICIAN: REFERRING PHYSICIAN: ROSELIA QUEVEDO MD DATE OF SERVICE: 03/30/19 Discharge Plan Patient Name: IKER LOWE Facility: [facility]:[place] : 1960 Planned Disposition: Home with Home Health Anticipated Discharge Date: 03/30/19 Discharge Date: Expected LOS: 6 Initial Reviewer: [id number] Initial Review Date: 03/27/2019 Generated: 03/30/19 5:54 pm Comments DCP- Discharge Planning Updated by [id number]: Caleb Xavier on 03/30/19 3:[address] Patient Name: IKER LOWE Encounter No: [id number] : 1960 Primary Insurance: MEDICARE A & B Anticipated DC Date: 03-30-2019 Planned Disposition: Home with Home Health External Planned Provider: [facility] [place], [place] DCP follow-up note: CM RECEIVED ORDER FOR HOME HEALTH AND PORTABLE OXYGEN. CM MET WITH PT AND SPOUSE IN ROOM, PT'S SPOUSE PROVIDED HOME HEALTH INFORMATION OF [facility] TO ARRANGE WITH THEM. CHOICE SIGNED. PT WANTS PORTABLE OXYGEN CONCENTRATOR FROM [facility], HE HAS PORTABLE BOTTLES AT HOME THAT HE HAS BEEN PAYING FOR PRIVATELY. PT DID NOT BRING PORTABLE OXYGEN FOR DISCHARGE HOME. PT AND SPOUSE BOTH DENY NEED OF PORTABLE OXYGEN TO GET HOME. PT REPORTS HE GOT HERE WITHOUT IT AND WILL GO HOME WITHOUT IT. CHOICE UPDATED FOR [facility] IN [place]. THEY PLAN TO USE [facility] TO BUY THE NEEDED LOVENOX AND NEED TO KNOW HOW MUCH IT IS. CM CALLED [facility], VERIFIED THAT PT WILL NEED LOVENOX 1O0 MG, #6; CM CALLED [facility], THEY HAVE LOVENOX IN STOCK, $27.04 PER DOSE. TOTAL COSTS WITH [facility] IS LESS THAN $40. CM CALLED [facility] [phone], SPOKE TO DAVE WHO ACCEPTED REFERRAL FOR FOLLOW UP TOMORROW. CM FAXED REFERRAL AND DISCHARGE INFORMATION TO [facility] AT [phone]. CM CALLED [facility], , SPOKE TO GULSHAN WHO INFORMED CM THAT PT HAS BEEN PRIVATELY PAYING FOR PORTABLE AND THAT FAMILY CAN COME BY AND ENGAGEMENT SPECIALIST ONE FOR DISCHARGE IF NEEDED. INSURANCE SHOULD PAY FOR PORTABLE WITH THE NEW TESTING FROM TODAY. CM FAXED INFORMATION TO [facility] AT [phone]. THEY WILL NOT PROVIDE PORTABLE OXYGEN CONCENTRATOR UNLESS PT PURCHASES UNIT. CM NOTIFIED PT AND SPOUSE IN ROOM. THEY CAN AFFORD LOVENOX, SPOUSE TO TRANSPORT HOME. [facility] CAL[facility]RESE MET WITH CM, SHE HAS MET WITH PT AND SPOUSE IN ROOM, CARDIOLOGY OK WITH DISCHARGE HOME TODAY. FAMILY IN AGREEMENT WITH DISCHARGE TODAY. LEAN FACILITATOR NURSE NOTIFED. LENO GROVER NOTIFIED. Caleb Xavier, CASE MANAGEMENT DCP- Discharge Planning Updated by [id number]: Ana Allen on 03/29/19 11:[address] CM SPOKE WITH PATIENT AND ABOUT USING A LOVENOX BRIDGE AT HOME. PROVIDED ALTERNATIVES ABOUT USING HOME HEALTH TO ADMINISTER LOVENOX, AND MONITOR INR LEVELS. PATIENT AND ARE RECEPTIVE TO USING HH, BUT WOULD LIKE TO WAIT UNTIL THE INR LEVELS ARE CLOSER TO THERAPEAUTIC. STATED THAT THEY WOUL LIKE CM TO STOP BY TOMORROW AFTER LABS HAVE RESULTED TO DISCUSS HH AGAIN. DCP- Discharge Planning Updated by [id number]: Catalina Torres on 03/27/19 10:[address] Patient Name: IKER LOWE Admission Status: ER Accout number: [id number] Admission Date: 03-24-2019 : 1960 Admission Diagnosis: Attending: ROSELIA QUEVEDO Current LOS: 3 Anticipated DC Date: Planned Disposition: Home Primary Insurance: MEDICARE A & B Discharge Planning Comments: CM MET WITH PATIENT'S . 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 STATES HAS HOME 02 BUT WOULD LIKE PORTABLE ALSO IF QUALIFIES. HE WILL NEED A WALK TEST ORDERED. KARINA SIGNED FOR [facility] IN [place]. IMM SIGNED. CM TO FOLLOW AND ASSIST NEEDED. Membership Correspondent: Catalina Torres DCPIA - Discharge Planning Initial Assessment Updated by [id number]: Catalina Torres on 03/27/19 11:47 am * Is the patient Alert and Oriented? Yes * PCP [facility] IN [facility] * Pharmacy [facility] * Preadmission Environment Home with Family * ADLs Independent * Other Equipment 02 * Please name any agencies selected above. [facility] IN [place] * Additional services required to return to the preadmission environment? No * Can the patient safely return to the preadmission environment? Yes * Has this patient been hospitalized within the prior 30 days at any hospital? No Coverage Notice Reviewer: [id number] Marybeth Can Notice Issued Date-Time: 03/22/2019 16:33 Notice Type: Medicare Outpatient Observation Notice Notice Delivered To: Family Member Relationship to Patient: Spouse Wound Care Specialist Name: Aracelis Lowe Delivery Method: HAND - Hand Delivered Christiana Days: Prior Verbal Notification: Recipient Understood Notice: Yes Recipient Signature: Yes Med Rec Note Co-signed by Attending: Coverage Notice Comment: KOENIG delivered to and signed by spouse. Original given to patient and one placed on the chart. Reviewer: [id number] Marybeth Torres Notice Issued Date-Time: 03/27/2019 11:50 Notice Type: Patient Choice Letter Notice Delivered To: Family Member Relationship to Patient: Wound Care Specialist Name: Delivery Method: HAND - Hand Delivered Christiana Days: Prior Verbal Notification: Recipient Understood Notice: Yes Recipient Signature: Yes Med Rec Note Co-signed by Attending: Coverage Notice Comment: [facility] [place] Reviewer: [id number] Marybeth Torres Notice Issued Date-Time: 03/27/2019 11:50 Notice Type: IM Discharge Notice Notice Delivered To: Family Member Relationship to Patient: Wound Care Specialist Name: Delivery Method: HAND - Hand Delivered Christiana Days: Prior Verbal Notification: Recipient Understood Notice: Yes Recipient Signature: Yes Med Rec Note Co-signed by Attending: Coverage Notice Comment: Reviewer: [id number] - Caleb Xavier Notice Issued Date-Time: 03/30/2019 12:55 Notice Type: IM Discharge Notice Notice Delivered To: Patient Relationship to Patient: Wound Care Specialist Name: Delivery Method: HAND - Hand Delivered Christiana Days: Prior Verbal Notification: Recipient Understood Notice: Yes Recipient Signature: Yes Med Rec Note Co-signed by Attending: Coverage Notice Comment: Last DP export: 03/30/19 2:44 p Patient Name: IKER LOWE Page [id number] at 1654 All edits/amendments must be made on the electronic document DICTATION DATE: 03/30/191653 SCIENTIFIC ILLUSTRATOR: DM 03/30/191653 RPT#: [id number] DC DATE: STATUS: ADM IN [facility] [address] [place] [address] END OF REPORT
[2019-03-30] MEDS ORDERED: LOVENOX INJ100 MG/ML SC (17:29)
--- NOTE | 2019-03-30 17:49 | NUR ---
TELEMETRY DCD. DC PLANS GIVEN. UNDERSTANDING VOICED. ESCORTED TO CAR BY W/C.
--- NOTE | 2019-03-31 08:55 | MORECARE ---
CASE MANAGEMENT DISCHARGE SUMMARY PATIENT: IKER LOWE UNIT: [id number] ADM DATE: 03/24/19 AGE: 58 : 64 SEX: M ROOM/BED: D.7015 AUTHOR: GARRICK,DOC PHYSICIAN: REFERRING PHYSICIAN: ROSELIA QUEVEDO MD DATE OF SERVICE: 03/31/19 Discharge Plan Patient Name: IKER LOWE Facility: [facility]:[place] : 1960 Planned Disposition: Home with Home Health Anticipated Discharge Date: 03/30/19 Discharge Date: 03/30/2019 Expected LOS: 6 Initial Reviewer: [id number] Initial Review Date: 03/27/2019 Generated: 03/31/19 9:55 am Comments DCP- Discharge Planning Updated by [id number]: Caleb Xavier on 03/30/19 3:[address] Patient Name: IKER LOWE Encounter No: [id number] : 1960 Primary Insurance: MEDICARE A & B Anticipated DC Date: 03-30-2019 Planned Disposition: Home with Home Health External Planned Provider: [facility] [place] DCP follow-up note: CM RECEIVED ORDER FOR HOME HEALTH AND PORTABLE OXYGEN. CM MET WITH PT AND SPOUSE IN ROOM, PT'S SPOUSE PROVIDED HOME HEALTH INFORMATION OF [facility] TO ARRANGE WITH THEM. CHOICE SIGNED. PT WANTS PORTABLE OXYGEN CONCENTRATOR FROM [facility], HE HAS PORTABLE BOTTLES AT HOME THAT HE HAS BEEN PAYING FOR PRIVATELY. PT DID NOT BRING PORTABLE OXYGEN FOR DISCHARGE HOME. PT AND SPOUSE BOTH DENY NEED OF PORTABLE OXYGEN TO GET HOME. PT REPORTS HE GOT HERE WITHOUT IT AND WILL GO HOME WITHOUT IT. CHOICE UPDATED FOR [facility] IN [place]. THEY PLAN TO USE [facility] TO BUY THE NEEDED LOVENOX AND NEED TO KNOW HOW MUCH IT IS. CM CALLED [facility], VERIFIED THAT PT WILL NEED LOVENOX 1O0 MG, #6; CM CALLED [facility], THEY HAVE LOVENOX IN STOCK, $27.04 PER DOSE. TOTAL COSTS WITH [facility] IS LESS THAN $40. CM CALLED [facility] [phone], SPOKE TO DAVE WHO ACCEPTED REFERRAL FOR FOLLOW UP TOMORROW. CM FAXED REFERRAL AND DISCHARGE INFORMATION TO [facility] AT [phone]. CM CALLED [facility], , SPOKE TO GULSHAN WHO INFORMED CM THAT PT HAS BEEN PRIVATELY PAYING FOR PORTABLE AND THAT FAMILY CAN COME BY AND MEAT HANGER ONE FOR DISCHARGE IF NEEDED. INSURANCE SHOULD PAY FOR PORTABLE WITH THE NEW TESTING FROM TODAY. CM FAXED INFORMATION TO [facility] AT [phone]. THEY WILL NOT PROVIDE PORTABLE OXYGEN CONCENTRATOR UNLESS PT PURCHASES UNIT. CM NOTIFIED PT AND SPOUSE IN ROOM. THEY CAN AFFORD LOVENOX, SPOUSE TO TRANSPORT HOME. LENO CALABRESE MET WITH CM, SHE HAS MET WITH PT AND SPOUSE IN ROOM, CARDIOLOGY OK WITH DISCHARGE HOME TODAY. FAMILY IN AGREEMENT WITH DISCHARGE TODAY. CAP AND HAT PRODUCTION SUPERVISOR NURSE NOTIFED. LENO GROVER NOTIFIED. Caleb Xavier, CASE MANAGEMENT DCP- Discharge Planning Updated by [id number]: Ana Allen on 03/29/19 11:[address] CM SPOKE WITH PATIENT AND ABOUT USING A LOVENOX BRIDGE AT HOME. PROVIDED ALTERNATIVES ABOUT USING HOME HEALTH TO ADMINISTER LOVENOX, AND MONITOR INR LEVELS. PATIENT AND ARE RECEPTIVE TO USING HH, BUT WOULD LIKE TO WAIT UNTIL THE INR LEVELS ARE CLOSER TO THERAPEAUTIC. STATED THAT THEY WOUL LIKE CM TO STOP BY TOMORROW AFTER LABS HAVE RESULTED TO DISCUSS HH AGAIN. DCP- Discharge Planning Updated by [id number]: Catalina Torres on 03/27/19 10:[address] Patient Name: IKER LOWE Admission Status: Accout number: [id number] Admission Date: 03-24-2019 : 1960 Admission Diagnosis: Attending: ROSELIA QUEVEDO Current LOS: 3 Anticipated DC Date: Planned Disposition: Home Primary Insurance: MEDICARE A & B Discharge Planning Comments: CM MET WITH PATIENT'S . 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 STATES HAS HOME 02 BUT WOULD LIKE PORTABLE ALSO IF QUALIFIES. HE WILL NEED A WALK TEST ORDERED. KARINA SIGNED FOR [facility] IN [place]. IMM SIGNED. CM TO FOLLOW AND ASSIST NEEDED. Arabic Teacher: Catalina Torres DCPIA - Discharge Planning Initial Assessment Updated by [id number]: Catalina Torres on 03/27/19 11:47 am * Is the patient Alert and Oriented? Yes * PCP [facility] IN [place] * Pharmacy [facility] * Preadmission Environment Home with Family * ADLs Independent * Other Equipment 02 * Please name any agencies selected above. [facility] [place] * Additional services required to return to the preadmission environment? No * Can the patient safely return to the preadmission environment? Yes * Has this patient been hospitalized within the prior 30 days at any hospital? No Coverage Notice Reviewer: [id number] - Kalani Can Notice Issued Date-Time: 03/22/2019 16:33 Notice Type: Medicare Outpatient Observation Notice Notice Delivered To: Family Member Relationship to Patient: Spouse Air Tool Operator Name: Aracelis Lowe Delivery Method: HAND - Hand Delivered Christiana Days: Prior Verbal Notification: Recipient Understood Notice: Yes Recipient Signature: Yes Med Rec Note Co-signed by Attending: Coverage Notice Comment: KOENIG delivered to and signed by spouse. Original given to patient and one placed on the chart. Reviewer: [id number] Marybeth Torres Notice Issued Date-Time: 03/27/2019 11:50 Notice Type: IM Discharge Notice Notice Delivered To: Family Member Relationship to Patient: Air Tool Operator Name: Delivery Method: HAND - Hand Delivered Christiana Days: Prior Verbal Notification: Recipient Understood Notice: Yes Recipient Signature: Yes Med Rec Note Co-signed by Attending: Coverage Notice Comment: Reviewer: [id number] Marybeth Torres Notice Issued Date-Time: 03/27/2019 11:50 Notice Type: Patient Choice Letter Notice Delivered To: Family Member Relationship to Patient: Air Tool Operator Name: Delivery Method: HAND - Hand Delivered Christiana Days: Prior Verbal Notification: Recipient Understood Notice: Yes Recipient Signature: Yes Med Rec Note Co-signed by Attending: Coverage Notice Comment: [facility] [place] Reviewer: [id number] Marybeth Xavier Notice Issued Date-Time: 03/30/2019 12:55 Notice Type: IM Discharge Notice Notice Delivered To: Patient Relationship to Patient: Air Tool Operator Name: Delivery Method: HAND - Hand Delivered Christiana Days: Prior Verbal Notification: Recipient Understood Notice: Yes Recipient Signature: Yes Med Rec Note Co-signed by Attending: Coverage Notice Comment: Reviewer: [id number] Xavier Notice Issued Date-Time: 03/30/2019 12:55 Notice Type: Patient Choice Letter Notice Delivered To: Patient Relationship to Patient: Air Tool Operator Name: Delivery Method: HAND - Hand Delivered Christiana Days: Prior Verbal Notification: Recipient Understood Notice: Yes Recipient Signature: Yes Med Rec Note Co-signed by Attending: Coverage Notice Comment: [facility] Last DP export: 03/30/19 3:54 p Patient Name: IKER LOWE Page [id number] at 0855 All edits/amendments must be made on the electronic document DICTATION DATE: 03/31/19854 SMOKING PIPE COATER: HINA 03/31/19 0855 RPT#: [id number] DC DATE:03/30/19 STATUS: DIS IN [facility] [address] [place] [address] END OF REPORT
== END 2019-03-30 17:49 | disposition home health service (06) | DRG 247 ==
LOC: D.ER 13:57 → OBSVTIME 16:23 → D.M2 16:23
PROVIDERS: Emergency Medicine; Family Medicine; Internal Medicine Cardiovascular Disease; ADMIT Internal Medicine Nephrology; ATTEND Internal Medicine Nephrology
PROC: B2121ZZ Fluoroscopy of Single Coronary Artery Bypass Graft using Low Osmolar Contrast (ICD-10-PCS; 2019-03-27)
PROC: B2111ZZ Fluoroscopy of Multiple Coronary Arteries using Low Osmolar Contrast (ICD-10-PCS; 2019-03-27)
PROC: B2151ZZ Fluoroscopy of Left Heart using Low Osmolar Contrast (ICD-10-PCS; 2019-03-27)
PROC: 4A023N7 Measurement of Cardiac Sampling and Pressure, Left Heart, Percutaneous Approach (ICD-10-PCS; 2019-03-27)
PROC: 027135Z Dilation of Coronary Artery, Two Arteries with Two Drug-eluting Intraluminal Devices, Percutaneous Approach (ICD-10-PCS; principal; 2019-03-27 09:00)
PROC: 02C03ZZ Extirpation of Matter from Coronary Artery, One Artery, Percutaneous Approach (ICD-10-PCS; 2019-03-27 09:00)
DX: I25.110 Atherosclerotic heart disease of native coronary artery with unstable angina pectoris (principal); J44.9 Chronic obstructive pulmonary disease, unspecified; K21.9 Gastro-esophageal reflux disease without esophagitis; K59.00 Constipation, unspecified; E66.9 Obesity, unspecified; Z68.30 Body mass index [BMI] 30.0-30.9, adult; E78.5 Hyperlipidemia, unspecified; K57.90 Diverticulosis of intestine, part unspecified, without perforation or abscess without bleeding